=== PATIENT | male | born 1940 | race Caucasian/White ===

== ENCOUNTER 2019-12-01 09:49 | Outpatient (CLI) | payer MEDICARE, OTHER, SELFPAY ==
--- NOTE | 2019-12-01 09:59 | XR_ITS ---
WS: [id number] KNEE LEFT TECHNIQUE: 3 views of the left knee CLINICAL INFORMATION: LEFT KNEE PAIN COMPARISON: None. FINDINGS: Moderate degenerative arthritis left knee with medial compartment narrowing. Marginal sclerosis media l joint compartment. Hypertrophic patella. Narrowing of the patellofemoral articulation. Soft tissue edema. IMPRESSION: Moderate degenerative arthritis medial joint compartment and patellofemoral articulation
== END 2019-12-01 09:50 | disposition home or self-care (01) ==
PROVIDERS: Family Provider Family Medicine; PCP Family Medicine; Visit Provider Family Medicine
DX: M17.12 Unilateral primary osteoarthritis, left knee (principal); M25.562 Pain in left knee
CPT/HCPCS: 73562

== ENCOUNTER 2019-12-06 08:26 | Outpatient (CLI) | payer MEDICARE, OTHER, SELFPAY ==
--- NOTE | 2019-12-06 08:45 | USCV_ITS ---
Dann Peng Age: 79 Gender: M : 1940 Exam Date: 12/06/2019 09:16 Ordering Phys: Riya Perez MD Technologist: Opal King Exam Location[place] [facility] [place] Indication: dyspnea, abnormal weight loss, weakness BP: 135 / 72 HR: 73 Rhythm: Sinus Technical Quality: Excellent MEASUREMENTS (Male / Female) Normal Values 2D ECHO LV Diastolic Diameter PLAX 3.8 cm 4.2 - 5.9 / 3.9 - 5.3 cm LV Systolic Diameter PLAX 2.4 cm IVS Diastolic Thickness 1.0 cm 0.6 - 1.0 / 0.6 - 0.9 cm IVS Systolic Thickness 1.5 cm LVPW Diastolic Thickness 1.1 cm 0.6 - 1.0 / 0.6 - 0.9 cm LVPW Systolic Thickness 1.4 cm LVOT Diameter 2.0 cm LV Ejection Fraction 2D Teich 67.2 % LV Ejection Fraction MOD 2C 70.3 % LV Ejection Fraction 2C AL 71.2 % LA Diameter 4.3 cm LA Width 2.6 cm LA Height 3.8 cm RA Width 3.2 cm RA Height 4.0 cm Aorta at Sinotubular Diameter 2.5 cm M-MODE LV Diastolic Diameter MM 3.8 cm 4.2 - 5.9 / 3.9 - 5.3 cm LV Systolic Diameter MM 2.5 cm LV Ejection Fraction MM Teich 63.9 % IVS Diastolic Thickness MM 1.4 cm 0.6 - 1.0 / 0.6 - 0.9 cm IVS Systolic Thickness MM 1.3 cm LVPW Diastolic Thickness MM 1.2 cm 0.6 - 1.0 / 0.6 - 0.9 cm LVPW Systolic Thickness MM 1.9 cm RV Diastolic Diameter MM 2.3 cm Aortic Annulus Diameter 3.1 cm LA Ao Ratio MM 1.4 MV E Point Septal Separation 0.7 cm DOPPLER AV Peak Velocity 95.0 cm/s LVOT Peak Velocity 98.0 cm/s AV Area Cont Eq vti 3.1 cm squared AV Area Cont Eq pk 3.2 cm squared MV Peak Velocity 100.0 cm/s MV Area PHT 3.0 cm squared Mitral E to A Ratio 0.9 MV E' Velocity 8.0 cm/s Mitral E to MV E' Ratio 10.7 Mitral E to LV E' Lateral Ratio 10.1 Mitral E to LV E' Septal Ratio 11.4 TR Peak Velocity 269.0 cm/s TR Peak Gradient 29.0 mmHg TV Peak E Velocity 98.0 cm/s Right Atrial Pressure 3.0 mmHg Pulmonary Artery Systolic Pressu 31.9 mmHg PV Peak Velocity 72.0 cm/s FINDINGS Left Ventricle Normal left ventricular size and systolic function, EF 65 %. No regional wall motion abnormalities. Grade I/IV diastolic dysfunction (abnormal relaxation filling pattern), normal to mildly elevated filling pressures. Right Ventricle Normal right ventricular size and systolic function. Right ventricular systolic pressure 31.9 mmHg. Right Atrium Mildly increased right atrial size. Left Atrium Normal left atrial size. Mitral Valve Mild to moderate mitral valve regurgitation. Aortic Valve Structurally normal aortic valve without significant sclerosis or stenosis. There is no aortic regurgitation. Tricuspid Valve Moderate tricuspid valve regurgitation. Pulmonic Valve Structurally normal pulmonic valve without significant stenosis. There is no pulmonic regurgitation. Pericardium Normal pericardium without effusion. Aorta Normal ascending aorta dimension. CONCLUSIONS Normal left ventricular size and systolic function, EF 65 %. No regional wall motion abnormalities. Grade I/IV diastolic dysfunction (abnormal relaxation filling pattern), normal to mildly elevated filling pressures. Moderate tricuspid valve regurgitation. Mild to moderate mitral valve regurgitation. Pulmonary artery peak systolic pressure of 32 mmHg There is no pericardial effusion. There are no intracardiac masses. Compared to the study from 12/26/2013, there may not be a significant change Dr Ana Agarwal MD [facility] (Electronically Signed) Final Date: 07 December 2019 09:03 S
--- NOTE | 2019-12-06 08:45 | CT_ITS ---
WS: [id number] CT CHEST TECHNIQUE: Contrast enhanced CT of the chest with coronal and sagittal reformatted images. CLINICAL INFORMATION: ABNORMAL WEIGHT LOSS/WEAKNESS/DYSPNEA COMPARISON: 6 18,015 DLP: 640.[address] scans at [facility] use at least one of these dose optimization techniques: automat ed exposure control; mA and/or kV adjustment per patient size (includes targeted exams where dose is matched to clinical indication); or iterative reconstruction. FINDINGS: Moderate chronic emphysematous changes. No acute pulmonary infiltrates. Slight subsegmental atelectas is in the lung bases. No suspicious pulmonary parenchymal opacities. Aortic calcification. Normal vasu iber thoracic aorta. Proximal main pulmonary arteries are normal. No mediastinal or hilar lymphadenop athy. Moderate degenerative changes thoracic spine. Adrenal glands are normal. Cholecystectomy clips. Splen ic granulomas. Nonobstructing parenchymal calculi partially visualized in the left greater than right kidneys the largest measuring 9 mm. Normal caliber upper abdominal aorta. Mild common bile duct dila tation likely physiologic postcholecystectomy. Normal GE junction. No axillary lymphadenopathy. CT/CT chest w con* [id number] IMPRESSION: 1. Moderate chronic emphysematous changes. No acute pulmonary infiltrates. 2. No suspicious pulmonary parenchymal opacities. 3. No mediastinal or hilar lymphadenopathy. 4. Prior cholecystectomy. 5. Nonobstructing renal parenchymal calculi partially visualized in the upper abdomen.
[2019-12-06 09:52] LABS: Blood Urea Nitrogen 28 mg/dL (8-23)
[2019-12-06] MEDS: iohexol 300 mg/mL 100 mL Btl IV (10:25)
== END 2019-12-06 08:27 | disposition home or self-care (01) ==
PROVIDERS: Family Provider Family Medicine; PCP Family Medicine; Visit Provider Family Medicine
DX: I07.1 Rheumatic tricuspid insufficiency (principal); R06.00 Dyspnea, unspecified; R63.4 Abnormal weight loss; R53.1 Weakness; J43.9 Emphysema, unspecified; N20.0 Calculus of kidney; Z90.49 Acquired absence of other specified parts of digestive tract
CPT/HCPCS: 36415; 71260; 82565; 84520; 93306

== ENCOUNTER 2019-12-22 06:03 | Day surgery (SDC) | payer MEDICARE, OTHER, SELFPAY ==
[2019-12-21 07:39] VITALS: BMI 20.9
[2019-12-22 06:27] VITALS: BP 152/93; PULSE 80; RESP 20; TEMP 36.6; O2SAT 99
[2019-12-22] MEDS: sodium chloride 0.9% 1,000 ML 30 ML (06:37)
--- NOTE | 2019-12-22 06:40 | P.HPUD_ITS ---
H&P update H&P Update: DATE OF SURGERY/PROCEDURE: 12/22/19 DATE H&P PERFORMED: PLANNED PROCEDURE: Operation Date: 12/22/19 07:00 Proposed Procedures p Colonoscopy(Not Applicable) - Teofilo Diaz MD
--- NOTE | 2019-12-22 06:40 | PM.HPUD ---
H&P update H&P Update: DATE OF SURGERY/PROCEDURE: 12/22/19 DATE H&P PERFORMED: 12/13/19 PLANNED PROCEDURE: Operation Date: 12/22/19 07:00 Proposed Procedures p Colonoscopy(Not Applicable) - Teofilo Diaz MD
--- NOTE | 2019-12-22 06:49 | ANES.PREANE2 ---
Pre-Anesthetic Assessment Pre-Anesthetic Assessment: Height/Weight: Height 1.83 m Weight 70.307 kg Temp Pulse Resp BP Pulse Ox 97.8 F 80 20 H 152/93 99 12/22/19 06:27 12/22/19 06:27 12/22/19 06:27 12/22/19 06:27 12/22/19 06:27 Preop Diagnosis: screening Proposed Procedure: Operation Date: 12/22/19 07:00 Proposed Procedures p Colonoscopy(Not Applicable) - Teofilo Diaz MD Was Beta Mando taken within 24 hours: Yes Last intake: Intake Last Liquid Date 12/21/19 Last Liquid Time 18:00 Last Solid Date 12/20/19 Last Solid Time 20:00 Last Intake: 23:00 Social: Social History: No alcohol and No tobacco Exam: Pre-Anes Outpt Exam: alert, oriented x 3, clear to auscultation bilaterally and regular rate & rhythm Airway: Submandibular: WNL Cervical ROM: WNL MP: 1 Pulmonary: Pulmonary: None reported CV/HEM: CV/HEM: HTN : : None reported Hepatic: Hepatic: None reported GI: GI: None reported Metabolic: Metabolic: None reported Musc/skel: Musc/skel: Lower Back Pain and OA/DJD Neuropsych: Neuropsych: None reported Anesthetic Plan: ASA status: 2 Anesthesia: Anesthesia Evaluation and MAC Risk of > 500 ml blood loss (7ml/kg in children): No Data Anesthesia Cardiac Studies: No Data to Display
[2019-12-22 07:24] VITALS: BP 77/50; PULSE 70; RESP 16; TEMP 36.5; O2SAT 100
[2019-12-22 07:34] VITALS: BP 107/70; PULSE 77; RESP 18; O2SAT 100
--- NOTE | 2019-12-22 07:43 | ANE.PACU2 ---
 Inpatient post-anesthesia follow up: Airway intact: Yes Vital signs: Temperature 97.7 F Pulse Rate 77 Respiratory Rate 18 Blood Pressure 107/70 Pulse Oximetry 100 Oxygen Delivery Me thod Room Air Oxygen Flow Rate 3 Fraction of Inspir ed Oxygen Hydration adequate: Yes Nausea and vomiting: No Pain level: 1 Mental status: Baseline
[2019-12-29 09:42] VITALS: BMI 20.9
== END 2019-12-22 07:43 | disposition home or self-care (01) ==
PROVIDERS: Family Provider Family Medicine; PCP Family Medicine; Visit Provider Surgery
PROC: 0DJD8ZZ Inspection of Lower Intestinal Tract, Via Natural or Artificial Opening Endoscopic (ICD-10-PCS; CPT 45378; principal; 2019-12-22 07:00)
DX: Z12.11 Encounter for screening for malignant neoplasm of colon (principal); K57.30 Diverticulosis of large intestine without perforation or abscess without bleeding; K64.8 Other hemorrhoids; I10 Essential (primary) hypertension; M19.90 Unspecified osteoarthritis, unspecified site; Z87.11 Personal history of peptic ulcer disease
CPT/HCPCS: 12345; G0121; J0171; J2704; J7030

== ENCOUNTER 2020-01-03 14:35 | Outpatient (CLI) | payer MEDICARE, OTHER, SELFPAY ==
[2020-01-03 15:45] LABS: Basophils # 0.1 10^3/uL (0.0-0.1); Basophils % 0.7 %; Eosinophils # 0.1 10^3/uL (0.0-0.8); Eosinophils % 1.5 %; Hematocrit 37.6 % (42.0-52.0); Hemoglobin 12.4 g/dL (11.7-16.6); Lymphocytes # 1.7 10^3/uL (0.8-4.8); Lymphocytes % 20.3 %; Mean Corpuscular Hemoglobin 33.6 pg (28.0-34.0); Mean Corpuscular Volume 101.9 fL (80-94); Mean Platelet Volume 10.6 fL (7.4-10.4); Monocytes # 0.8 10^3/uL (0.2-0.9); Monocytes % 9.7 %; Neutrophils # 5.5 10^3/uL (1.8-7.7); Neutrophils % 67.3 %; Nucleated Red Blood Cells % 0 %; Platelet Count 242 10^3/cmm (130-400); Red Blood Count 3.69 10^6/uL (4.1-5.3); Red Cell Distribution Width 11.5 % (12.1-15.1); White Blood Count 8.2 10^3/uL (4.0-10.0)
== END 2020-01-03 14:36 | disposition home or self-care (01) ==
LOC: LAB 14:35
PROVIDERS: Family Provider Family Medicine; PCP Family Medicine; Visit Provider Orthopaedic Surgery
DX: Z86.2 Personal history of diseases of the blood and blood-forming organs and certain disorders involving the immune mechanism (principal)
CPT/HCPCS: 85025; 86850; 86900

== ENCOUNTER 2020-01-09 12:23 | Observation (INO) | payer MEDICARE, OTHER, SELFPAY ==
--- NOTE | 2019-12-29 09:54 | ANES.PREANE2 ---
Pre-Anesthetic Assessment Pre-Anesthetic Assessment: Height/Weight: Height 1.83 m Preop Diagnosis: left knee end stage DJD Proposed Procedure: Operation Date: 01/09/20 09:00 Proposed Procedures p Total Knee Arthroplasty 47980 M17.0(Not Applicable) - Dc Sawant MD Exam: Pre-Anes Outpt Exam: alert, oriented x 3, clear to auscultation bilaterally and regular rate & rhythm Airway: Submandibular: WNL Cervical ROM: WNL MP: 1 Dentition: Caps Additional comments: left front CV/HEM: CV/HEM: HTN (rx x 20y) : Comments: BPH GI: GI: GERD Comments: well controlled Musc/skel: Musc/skel: OA/DJD Anesthetic Plan: ASA status: 3 Anesthesia: General and Regional (specify below) Data Anesthesia Cardiac Studies: No Data to Display
[2019-12-29 10:26] LABS: Anion Gap 14.7 (5-19); Blood Urea Nitrogen 18 mg/dL (8-23); Carbon Dioxide 29 mmol/L (22-29); Chloride 99 mmol/L (98-107); Glucose 127 mg/dL (65-115); Osmolality Calculated 286 mOsm/kg (285-295); Potassium 3.7 mmol/L (3.5-5.1); Sodium 139 mmol/L (136-145)
[2020-01-09] VITALS (31 sets, daily range): BP systolic 120–169; BP diastolic 72–108; PULSE 71–102; RESP 16–23; TEMP 36.2–37.1; O2SAT 95–100; BMI 24.4
--- NOTE | 2020-01-09 07:29 | P.ANESUD_ITS ---
Pre-Anesthetic Update Pre-Anesthetic Assessment: Date of Surgery/Procedure: 01/09/20 Preop Sherri gnosis: Osteoarthritis left knee Proposed Procedure: Operation Date: 01/09/20 09:00 Proposed Procedures p Total Knee Arthroplasty 03924 M17.0(Not Applicable) - Dc Sawant MD Last Intake: Intake Last Liquid Date 01/08/20 Last Solid Date 01/08/20 Vitals: Temperature 98.1 F 01/09/20 07:03 Temperature Source Temporal Artery S can 01/09/20 07:03 Pulse Rate 91 01/09/20 07:03 Pulse Rhythm 01/09/20 07:11 Pulse Strength 3+ Normal 01/09/20 07:11 Respiratory Rate 18 01/09/20 07:03 Blood Pressure 159/95 01/09/20 07:03 Blood Pressure Staci n 116 01/09/20 07:03 Pulse Oximetry 97 01/09/20 07:03 Oxygen Delivery Me thod 01/09/20 07:11 Cardiac Studies: No Data to Display
[2020-01-09] MEDS: fentaNYL 50 mcg/mL INJ 2mL 100 MCG IVP (07:59)
[2020-01-09] MEDS: sodium chloride 0.9% 1,000 ML 30 ML IV (08:00)
[2020-01-09] MEDS: midazolam 1 mg/mL INJ 5 ML 5 MG IVP (08:00)
--- NOTE | 2020-01-09 09:46 | W.PM.OPSUD ---
Surgery/Procedure H&P Update DATE OF PROCEDURE: January 09, 2020 DATE H&P PERFORMED: 01/03/20 H&P UPDATE INFORMATION: I have reviewed H&P completed within last 30 days PREOP DIAGNOSIS: Osteoarthritis left knee PRIMARY INDICATION FOR PROCEDURE: Left knee pain secondaruy to osteoarthritis. Failed conservative treatment. PLANNED PROCEDURE: Operation Date: 01/09/20 09:00 Proposed Procedures p Total Knee Arthroplasty 89734 M17.0(Not Applicable) - Dc Sawant MD
[2020-01-09] MEDS: tranexamic acid 1,000 mg/10mL SDV 1000 MG IRRIGATION (11:18)
[2020-01-09] MEDS: ketorolac 30 mg/mL INJ IM (11:24)
[2020-01-09] MEDS: EPINEPHrine 1 mg/mL INJ XX (11:24)
--- NOTE | 2020-01-09 12:00 | P.OP_ITS ---
Operative Report Date of procedure: January 09, 2020 Pre-op Diagnosis: Osteoarthritis left knee Post-op diagnosis: same Post-op Findings: Same Procedure Done: Left total knee arthroplasty Implants: Bianka total knee arthroplasty components were used includin) Size 5 triathalon cruciate retaining femoral component 2) Size 6 Tritanium tibial component 3) 35 mm /11 mm thickness Tritanium asymetric patella 4) Size 6/13 mm thickness CS tibial bearing insert Pathology: none sent Surgeon: Dc Sawant Anesthesia: General and Nerve Block (Adductor canal) Estimated blood loss (mL): 200 Tourniquet time (min): 61 Complications: None Findings: Patient had severe tricompartmental chondromalacia with significant medial eburnation over the medial femoral condyle and medial tibial plateau and varus alignment Condition: stable Disposition: PACU Procedure: The patient was taken to the operating room. Patient was given 1 g of tranexamic acid . The above anesthesia provided by the anesthesia service. A timeout was performed. The patient was prepped and draped in the usual fashion with the lower extremity exposed. A anterior incision was made, midline, from a point proximal to the patella to the distal tibial tubercle. Di ssection was accomplished through the subcutaneous fat to the extensor mechanism. The vastus medialis oblique is musculature was elevated with a retractor and a capsular incision made from the medial patella along the patellar tendon up into the superior capsule. The patella could be displaced laterally and the knee flexed. The patellar fat pad was resected to provide better visibility. Retractors were placed medially and laterally adjacent to the tibial plateau. The femoral canal was drilled in line with the longitudinal axis of the femur. Intramedullary femoral guide for used to make a distal femoral cut in 5 degrees of valgus, resecting 8 mm from the more prominent condyle. Next the extra medullary tibial guide was placed in alignment with the longitudinal axis of the tibia. The cutting guides were set to remove just over 9 mm from the high tibial plateau. The proximal tibia was then cut. The femoral measuring guide was then placed over the distal femur. Rotation was verified checking the relationship of the guide to the condyle and the trochlear groove. The femur was measured and cut for the desired femoral component. The desired tibial baseplate was then chosen. A trial reduction with the femur tibial baseplate and polyethylene was done, assuring that the knee was stable throughout full motion. Ligament balancing involved release of the deep medial collateral ligament and removal of medial osteophytes.The tibia was prepared for the tibial baseplate. Patellar thickness was then measured. The patella was cut removing articular cartilage and prepared for appropriate size patellar button. All surfaces were cleaned with pulsatile lavage. The femur tibia and patella were then press-fit into place. The posterior capsule and collateral ligaments were then injected with a solution of 100 mL of 0.2% ropivacaine, 1 mL of a 1:1000 epinephrine solution, and 30 mg of Toradol. Final polyethylene component was then snapped into place into the tibia. 2 grams of tranexamic acid were applied to the wound. The tourniquet was deflated. The tranxanemic acid was left contact with the knee for 5 minutes before the knee was irrigated with saline. The extensor retinaculum was closed with 1 Ethibond. The subcutaneous tissues were closed with 2-0 Vicryl and the skin was closed with skin myriam. A compressive dressing was applied. The patient was taken to recovery room in stable condition.
--- NOTE | 2020-01-09 12:08 | XRR_ITS ---
PROCEDURE INFORMATION: Exam: XR Left Knee Exam date and time: 01/09/2020 12:33 PM Age: 79 years old Clinical indication: Device placement; Joint replacement hardware; Prior surgery; Surgery date: Post-operative (0-2 days); Surgery type: Status post left total knee arthroplasty TECHNIQUE: Imaging protocol: XR Left knee. Views: 1 or 2 views. COMPARISON: CR XR knee LT 3V* [id number] 12/01/2019 10:07 AM FINDINGS: Bones/joints: The patient has had a total knee arthroplasty. No periprosthetic lucency. No fracture. No dislocation. Soft tissues: Postoperative soft tissue changes present. XR/XR knee LT 1-2V [id number] IMPRESSION: Postoperative changes.
[2020-01-09] MEDS: fentaNYL 50 mcg/mL INJ 2mL IVP ×2 (12:11→12:16)
--- NOTE | 2020-01-09 12:12 | ANES.PROC ---
Anesthesia Procedures Procedure/Date: 01/09/20 Left adductor canal block Procedure Narrative: R&B's of left adductor canal block for postop pain relief following left TKA. Verbal and written consent obtained. Versed 2+1+1+1mg, Fentanyl 50ug. US utilized to identify left adductor canal space, CALEB. 40cc Ropvicaine 0.5 + Lido 2% with epi in 3:1 ratio in 5cc increments.
[2020-01-09] MEDS: midazolam 1 mg/mL INJ 2 mL IVP ×4 (12:14→13:04)
[2020-01-09] MEDS: morphine 4 mg/mL SDV 1 mL 2 MG IVP ×5 (12:18→15:01)
[2020-01-09] MEDS: sodium chloride 0.9% 1,000 ML 100 ML IV ×2 (12:30→14:04)
--- NOTE | 2020-01-09 13:50 | SUR.PHASEI ---
1205 PT TO PACU RESTLESS, CONFUSED ORIENTED TO NAME ONLY TRYING TO GET UP WARNER TO DD YELLOW URINE NOTED TO TUBING, STAT LOCK TO RT THIGH, LT KNEE DRESSING D/I FIRST ICE TO SITE DISTAL PULSE DOPPLED STRONG AND REGULAR, BILAT FOOT PUMPS ON SEE PAIN MEDS GIVEN PT C/O OF PAIN MOANING UNABLE TO USE SCALE FACE SCALE USED 1240 PT STILL CRYING ANXIOUS RESTLESS AFTER VERSED AND PAIN MEDS TO BEDSIDE 1323 PT AWAKES EASILY AT BEDSIDE PT GETS ANXOUS AND TEARFUL BUT CALMS TO TALKING TO HIM , STATES HE HAS PTSD AND AWAKES LIKE THIS TO ANESTHESIA, REPORT CALLED TO FLOOR PT TO FLOOR PER BED TALKATIVE WITH STAFF SOFIE RN AND BP 138/82, HR, RESP 20/ SATS ON 2LNC 100%
[2020-01-09] MEDS: chlorhexidine gluconate 0.12% Btl 473 mL 30 ML MUCOUS MEM ×3 (14:03→23:12)
[2020-01-09] MEDS: CELEcoxib 200 mg Capsule PO (14:03)
[2020-01-09] MEDS: oxyCODONE 5 mg IR Tab/Cap PO (15:02)
[2020-01-09] MEDS: ferrous sulfate EC 325 mg Tablet PO (15:17)
--- NOTE | 2020-01-09 15:38 | PC.NURSE ---
Prn bleeding note Patient noted to have a moderate amount of blood to dressing, saturating through the dressing, sheets and blankets. B/p 132/82, noted to have bright red bleeding with clots noted to dressing. Dr. Sawant informed with orders received to reinforce dressing and monitor bleeding. Patient has good pedal pulses, dressing reinforced. Will continue to monitor.
--- NOTE | 2020-01-09 16:48 | PC.NURSE ---
Physician Notification notified provider of surgical sight bleeding. orders to elevate patients leg and to ice. Vitals within normal limits and patient alert and oriented.
[2020-01-09] MEDS: mupirocin oint 22 gm 1 APPLIC NASAL (17:14)
[2020-01-09] MEDS: sennosides-docusate Tablet 2 TAB PO (17:15)
[2020-01-09] MEDS: citalopram 20 mg Tablet PO (17:15)
[2020-01-09] MEDS: metoprolol tartrate 25 mg Tablet PO (17:15)
--- NOTE | 2020-01-09 19:04 | PC.NURSE ---
noted patient has minimal bleeding from surgical sight.
[2020-01-10] VITALS (10 sets, daily range): BP systolic 138–146; BP diastolic 70–76; PULSE 77–98; RESP 16–22; TEMP 37.1–37.2; O2SAT 94–99; BMI 24.5
[2020-01-10] MEDS: oxyCODONE 5 mg IR Tab/Cap PO ×3 (00:27→13:51)
[2020-01-10] MEDS: CELEcoxib 200 mg Capsule PO ×2 (02:44→12:06)
[2020-01-10] MEDS: sodium chloride 0.9% 1,000 ML 100 ML IV ×2 (02:49→09:36)
[2020-01-10 05:15] LABS: Hemoglobin 9.4 g/dL (11.7-16.6)
[2020-01-10] MEDS: morphine 4 mg/mL SDV 1 mL 2 MG IVP (09:10)
[2020-01-10] MEDS: aspirin 325 mg EC Tablet PO (09:22)
[2020-01-10] MEDS: sennosides-docusate Tablet 2 TAB PO (09:22)
[2020-01-10] MEDS: citalopram 20 mg Tablet PO (09:23)
[2020-01-10] MEDS: tamsulosin 0.4 mg Capsule PO (09:23)
[2020-01-10] MEDS: mupirocin oint 22 gm 1 APPLIC NASAL (09:24)
[2020-01-10] MEDS: hydroCHLOROthiazide 25 mg Tablet PO (09:24)
[2020-01-10] MEDS: ferrous sulfate EC 325 mg Tablet PO (09:24)
[2020-01-10] MEDS: pantoprazole DR 40 mg Tablet PO (09:24)
[2020-01-10] MEDS: chlorhexidine gluconate 0.12% Btl 473 mL 30 ML MUCOUS MEM ×2 (09:25→12:07)
--- NOTE | 2020-01-10 09:30 | PC.CHAP ---
Pastoral Care Encounter/Spiritual Assessment Type of Contact [] Declined recreational director visit [] Patient/Family/Request visit [] Outpatient visit [] Follow-up visit [] Physician referral [] Code/Alert [x] Routine visit [] Staff referral [] Actively dying [] Patient sleeping [] Family support [] [] Out of room [] Palliative care [] [] Receiving care in room [] Pre-surgical visit [] Trauma [] Long length of stay [] ICU visit [] Other: Relational/Emotional Strength [x] Patient feels connected with others/family/visitors/staff [] Distress [] Loneliness/isolation [] Abandonment Spirituality of Patient [x] Person of Maame [x] Attends Baptism of their Maame [] Believes in Prayer [] Reads Bible or Cheondoism materials [] There are Spiritual issues to be addressed Spout Liner Interventions [x] Prayer [x] Active listening [x] Non-anxious presence [] Spiritual/emotional support [] Crisis/trauma care [] Spiritual counseling [] Bereavement support [] Provided bereavement packet [] Provided Bible/devotional materials [] Provided toy/stuffed animal, coloring book to patient or family member [] Provided Communion [] Anointing/[place] [] Salvation [x] Completed spiritual assessment [] Other: Impact on Illness or Injury [] Angry [] Fearful [] Anxious [] Often cries [] Exhaustion [] Unable to work [] Unable to attend yazdanism [] Unable to walk/stand [] Unable to read [] Unable to drive [] Unable to eat/drink [] Unable to sleep [] Unable to be with family [] Patient intubated [] Other: Summary patient doing well Time spent with patient 10 min
[2020-01-10] MEDS: metoprolol tartrate 25 mg Tablet PO (09:32)
--- NOTE | 2020-01-10 11:48 | ANE.PACU2 ---
 Inpatient post-anesthesia follow up: Airway intact: Yes Vital signs: Temperature 98.9 F Pulse Rate 85 Respiratory Rate 16 Blood Pressure 144/70 Pulse Oximetry 94 Oxygen Delivery Me thod [ Room Air Current Rate & Del karie] Oxygen Delivery Me thod Room Air Oxygen Flow Rate 2 Fraction of Inspir ed Oxygen Hydration adequate: Yes Nausea and vomiting: No Mental status: Baseline
--- NOTE | 2020-01-10 13:12 | PM.DCS ---
Discharge Providers Date of Admission: 01/09/20 12:23 Date of Discharge: January 10, 2020 Attending Provider at Admission: Dc Sawant MD Attending Provider at Discharge: Dc Sawant MD Primary Care Provider: Riya Perez MD Diagnoses at Discharge Discharge Diagnosis (1) Osteoarthritis of left knee: Status: Acute (2) Status post left knee replacement: Status: Acute Reason for Visit Reason for Visit: Reason For Visit: Primary osteoarthritis of bilateral knee Hospital Course Hospital Course: The patient underwent elective left total knee arthroplasty on 01/09/2020 and tolerated the procedure well. He was a bit more combative than typical in recovery room and had some initial bleeding from his knee. His drainage ceased with a reapplied dressing that evening. He had very little pain. He made excellent progress with physical therapy. By the first postoperative day he was independent with his walker and stable for discharge. He was managed with aspirin and mechanical compression for DVT prophylaxis. he remained hemodynamically stable throughout his hospitalization Physical Exam Narrative: EXAM NARRATIVE: On the day of discharge the patient's left knee dressing was clean and dry. He had minimal swelling in his calf. He had no left distal neurovascular deficits. Urinary Catheter Management^: [place]: Cath Placed During This Visit: yes Urethral Indwelling: No Reason for Continuing Indwelling Catheter: Perioperative Use in Selected Surgeries Urinary Catheter Date of Insertion: 01/09/20 Urinary Catheter Time of Insertion: 10:18 Discharge Data Data Completed and Pending: Completed Studies During Hospitalization Category Date Time Status XR knee LT 1-2V 7 3560 Routine Exams 01/09/20 12:08 Completed Pending at discharge Category Date Time Status Hemoglobin AM LAB S Lab 01/11/20 04:00 Ordered Labs from last 24 hours 01/10/20 04:25 Hgb 9.4 L Vitals: Last Vital Signs Temp 98.9 F 01/10/20 11:35 Pulse 85 01/10/20 11:35 Resp 16 01/10/20 11:35 BP 144/70 01/10/20 11:35 Pulse Ox 94 01/10/20 11:35 Discharge Plan Discharge Patient Disposition: Home, Self-Care Condition: Stable Prescriptions: New Percocet 5-325 mg tablet 1 tab PO Q4H Qty: 30 RF: 0 aspirin 325 mg Tablet,Delayed Release (Dr/Ec) 325 mg PO DAILY Qty: 30 RF: 0 celecoxib 200 mg Capsule 200 mg PO Q12H Qty: 30 RF: 0 Continued mupirocin 2 % ointment 1 applic TOPICAL BID Qty: 30 RF: 0 citalopram 20 mg tablet 20 mg PO BID RF: 0 metoprolol tartrate 25 mg tablet 25 mg PO BID RF: 0 cyclobenzaprine 10 mg tablet 10 mg PO TID PRN (Reason: Muscle Spasm) RF: 0 ferrous sulfate 325 mg (65 mg iron) tablet 325 mg PO DAILY RF: 0 esomeprazole magnesium [Nexium] 20 mg capsule,delayed release(DR/EC) 20 mg PO DAILY RF: 0 hydrochlorothiazide 25 mg tablet 25 mg PO DAILY RF: 0 tamsulosin 0.4 mg capsule 0.4 mg PO DAILY RF: 0 Discharge Orders: Discharge Order (Routine); Ordered 01/10/20 Ordered By: Dc Sawant Other Ambulatory Orders: DME: Kal (Order) Location: None Selected Ordered By: Dc Sawant Referrals: Dc Sawant MD [Physician] - 01/24/20 10:45 am Discharge Diet: Regular Discharge Activity: As per PT/OT instructions Activity Restrictions/Additional Instructions: Remove compressive dressing in 48 hours and replace with hospital supplied island dressing May shower once incisions completely free of drainage. Replaced dressings as needed for drainage.. Take Celebrex twice a day for the next 15 days, discontinue other anti-inflammatories Take oxycodone for breakthrough pain. Exercises per physical therapy. Ice and elevate knees as needed for pain and swelling.. Discharge Attestations Time Spent in Discharge Care*: other Quality Metrics Clinical Quality Measures During this hospital stay, did patient experience: None Coding Level of Care Code Acute Member [employer] for [facility] Fwd Diagnoses Osteoarthritis of left knee M17.12 Status post left knee replacement Z96.652
--- NOTE | 2020-01-10 14:38 | PC.NURSE ---
Discharge summary Patient was given discharge instructions. patients was at bedside as well. patients iv was discontinued. vitals within normal limits. patient alert and oriented. prescriptions were sent to patients preferred pharmacy.
== END 2020-01-10 14:40 | disposition home or self-care (01) ==
LOC: MEDSURG 14:59
PROVIDERS: Anesthesiology; Admitting Provider Orthopaedic Surgery; Family Provider Family Medicine; PCP Family Medicine; Visit Provider Orthopaedic Surgery
PROC: (CPT 27447; principal; 2020-01-09 09:00)
DX: M17.12 Unilateral primary osteoarthritis, left knee (principal); D64.9 Anemia, unspecified; D18.00 Hemangioma unspecified site; I10 Essential (primary) hypertension; N40.0 Benign prostatic hyperplasia without lower urinary tract symptoms; K21.9 Gastro-esophageal reflux disease without esophagitis
CPT/HCPCS: 27447; 12345; 36415; 73560; 80048; 85018; 96361; 96365; 96374; 96375; 97110; 97116; 97161; 97166; 97530; C1776; G0378; J0131; J0171; J0690; J1100; J1580; J1885; J2001; J2250; J2270; J2370; J2405; J2704; J2710; J2795; J3010; J3490; J7030

== ENCOUNTER → 2020-02-27 14:44 | Outpatient (BNVA) | payer MEDICARE, OTHER, SELFPAY | PROVIDERS: Family Provider Family Medicine; PCP Family Medicine; Visit Provider Orthopaedic Surgery | DX: Z48.89 Encounter for other specified surgical aftercare (principal); Z96.652 Presence of left artificial knee joint | CPT/HCPCS: 73560; 73565 ==

== ENCOUNTER → 2020-03-27 08:45 | Outpatient (BNVA) | payer MEDICARE, OTHER, SELFPAY | PROVIDERS: Family Provider Family Medicine; PCP Family Medicine; Visit Provider Orthopaedic Surgery | DX: S49.91XA Unspecified injury of right shoulder and upper arm, initial encounter (principal); X58.XXXA Exposure to other specified factors, initial encounter | CPT/HCPCS: 73030; 84450; 87070; 87075; 89051 ==

== ENCOUNTER → 2020-03-28 14:05 | Outpatient (BNVA) | payer MEDICARE, OTHER, SELFPAY | PROVIDERS: Family Provider Family Medicine; PCP Family Medicine; Visit Provider Orthopaedic Surgery | DX: S49.90XA Unspecified injury of shoulder and upper arm, unspecified arm, initial encounter (principal); M87.811 Other osteonecrosis, right shoulder | CPT/HCPCS: 80500 ==

== ENCOUNTER 2020-04-10 10:37 | Outpatient (CLI) | payer MEDICARE, OTHER, SELFPAY ==
--- NOTE | 2020-04-10 11:45 | MR_ITS ---
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 Severe degenerative changes at the AC joint. There is edema within the distal clavicle with increased T2 signal and thinning of the acromion. Remodeling of the acromion from the high riding humeral head . There is a large amount of inflammatory soft tissue at the AC joint with subacromial and subdeltoid fluid distending the bursa. Micrometallic artifacts surrounding the humeral head from prior surgery. Markedly high riding humeral head abuts the undersurface of the acromion. Loss of cartilage with subc hondral cystic changes at the humeral head with remodeling and deformity. There is an abnormal appear ance of the medial humeral head which may be due to surgical resection or osteonecrosis. There is a l arge amount of fluid surrounding the abnormal humeral head. There are anchors placed in the femoral h ead which are new since the prior study. Severe degenerative changes at the glenohumeral joint with l oss of cartilage and subchondral cystic changes. No labral is identified. Full-thickness tear of the supraspinatus tendon and muscle with retraction to at least the glenoid. T here is a edema and fatty replacement of the supraspinatus muscle involving greater than 50%. Distal subscapularis tendon is torn and retracted. Tendon is not identified distally. There is marked thicke venkat of the distal infraspinatus tendon without full-thickness tear. Mild muscle loss and atrophy of the infraspinatus and subscapularis. Biceps tendon is not present at the bicipital groove and is prob ably partially subluxed and dislocated along with the subscapularis tendon. Large amount of marrow edema in the humeral head and proximal humerus. MR/MR shoulder RT wo con* [id number] IMPRESSION: 1. Markedly abnormal appearance of the shoulder and glenohumeral joint and AC joint. 2. Defect involving the medial humeral head may be an area of osteonecrosis or secondary to prior infection or surgical resection. New since the prior should er MRI of 05/09/2019. 3. Large joint effusion. 4. Full-thickness tear with retraction to the glenoid of the supraspinatus ten don. Greater than 50% atrophy and fatty replacement of the supraspinatus muscle . 5. Full-thickness tear with retraction of the subscapularis tendon. 6. Dislocated biceps tendon. 7. Severe degenerative changes at the glenohumeral joint with osteophytes, los s of cartilage and subchondral cystic disease and high riding humeral head.
== END 2020-04-10 10:38 | disposition home or self-care (01) ==
LOC: RADSHAW 10:43
PROVIDERS: PCP Family Medicine; Visit Provider Orthopaedic Surgery
DX: M87.811 Other osteonecrosis, right shoulder (principal); M25.411 Effusion, right shoulder; M75.101 Unspecified rotator cuff tear or rupture of right shoulder, not specified as traumatic
CPT/HCPCS: 73221

== ENCOUNTER 2020-05-31 10:46 | Outpatient (CLI) | payer MEDICARE, OTHER, SELFPAY ==
--- NOTE | 2020-05-31 10:53 | XR_ITS ---
WS: [id number] Right knee, 3 views, 05/31/2020 Clinical Data: PAIN IN RIGHT KNEE Comparison: AP right knee, 02/27/2020. Findings: Both the medial and lateral joint compartments are narrow. There is an osteophyte of the medial femor al condyle and the medial tibial plateau. There is a posterior superior patellar spur. There are faint calcifications within the lateral menisc us. No fractures or dislocations are seen. There are small vascular calcifications present. XR/XR knee RT 3V* [id number] Impression: Osteoarthritis of all 3 compartments of the right knee.
== END 2020-05-31 10:47 | disposition home or self-care (01) ==
LOC: RADWPI 10:51
PROVIDERS: Family Provider Family Medicine; PCP Family Medicine; Visit Provider Family Medicine
DX: M25.561 Pain in right knee (principal); M17.11 Unilateral primary osteoarthritis, right knee
CPT/HCPCS: 73562

== ENCOUNTER → 2020-07-13 08:41 | Outpatient (BNVA) | payer MEDICARE, OTHER, SELFPAY | PROVIDERS: PCP Family Medicine; Visit Provider Internal Medicine | DX: Z11.59 Encounter for screening for other viral diseases (principal) | CPT/HCPCS: 87635 ==

== ENCOUNTER 2020-07-16 12:26 | Observation (INO) | payer MEDICARE, OTHER, SELFPAY ==
--- NOTE | 2020-07-09 10:54 | ECG_ITS ---
[facility] Test Date: 2020-07-09 Pat Name: aDnn Peng Department: Room: Gender: Male Family Preservation Worker: : 1940 Requested By: Roberto Aden Order Number: [id number] Francisco MD: Elian Zavala M.D. Measurements Intervals [place] Rate: 68 P: 81 SD: 184 QRS: 86 QRSD: 88 T: 76 QT: 364 QTc: 390 Interpretive Statements SINUS RHYTHM Compared to ECG 05/17/2019 10:03:50 No significant changes Electronically Signed On 07-09-2020 12:01:55 CDT by Elian Zavala M.D. [id number]
[2020-07-09 11:39] LABS: Basophils % 0.4 %; Eosinophils # 0.1 10^3/uL (0.0-0.8); Eosinophils % 1.6 %; Hematocrit 42.6 % (42.0-52.0); Lymphocytes # 1.5 10^3/uL (0.8-4.8); Lymphocytes % 18.5 %; Mean Corpuscular HGB Conc 32.9 g/dL (30.0-36.0); Mean Corpuscular Hemoglobin 33.8 pg (28.0-34.0); Mean Corpuscular Volume 102.9 fL (80-94); Mean Platelet Volume 10.7 fL (7.4-10.4); Monocytes # 0.6 10^3/uL (0.2-0.9); Monocytes % 7.9 %; Neutrophils # 5.71 10^3/uL (1.8-7.7); Neutrophils % 71.3 %; Nucleated Red Blood Cells % 0 %; Platelet Count 216 10^3/cmm (130-400); Red Blood Count 4.14 10^6/uL (4.1-5.3); Red Cell Distribution Width 11.8 % (12.1-15.1)
[2020-07-09 11:59] LABS: Add Urine Microscopic? NO
[2020-07-09 12:03] LABS: Anion Gap 10.7 (5-19); Blood Urea Nitrogen 29 mg/dL (8-23); Carbon Dioxide 29 mmol/L (22-29); Chloride 104 mmol/L (98-107); Glucose 114 mg/dL (65-115); Osmolality Calculated 286 mOsm/kg (285-295); Potassium 4.7 mmol/L (3.5-5.1); Sodium 139 mmol/L (136-145)
[2020-07-09 12:05] LABS: Bilirubin Urine Neg (NEGATIVE); Blood Urine Neg (Negative); Glucose Urine UA Norm (Normal); Ketones Urine Negative (Negative); Leukocyte Esterase Urine Negative (Negative); Nitrate Urine Negative (Negative); Protein Urine Neg (Negative); Specific Gravity, Urine 1.015 (1.005-1.030); Urine Appearance Clear (CLEAR); Urine Color Yellow (Yellow); Urobilinogen Urine Norm (Negative); pH Urine 5 (5-7)
[2020-07-10 10:33] LABS: Coronavirus Lab Test PTC Negative
[2020-07-16] VITALS (20 sets, daily range): BP systolic 136–161; BP diastolic 73–98; PULSE 63–88; RESP 10–18; TEMP 36.1–37.2; O2SAT 99–100
[2020-07-16] MEDS: sodium chloride 0.9% 1,000 ML 30 ML IV (07:54)
--- NOTE | 2020-07-16 08:34 | P.ANESASSM_ITS ---
Pre-Anesthetic Assessment Pre-Anesthetic Assessment: Height/Weight: Height 1.83 m Weight 74.843 kg Temp Pulse Resp BP Pulse Ox 98.5 F 63 16 136/86 99 07/16/20 07:45 07/16/20 07:45 07/16/20 07:45 07/16/20 07:45 07/16/20 07:45 Preop Diagnosis: Osteoarthritis right knee Proposed Procedure: Operation Date: 07/16/20 09:30 Proposed Procedures p Total Knee Arthroplasty 79310 M17.11(Right) - Dc Sawant MD Familial anesthetic complications: None Was Beta Mando taken within 24 hour s: Yes Last intake: Intake Last Liquid Date 07/16/20 Last Liquid Time 06:30 Last Solid Date 07/15/20 Last Solid Time 22:00 Social: Social History: No alcohol and No tobacco Exam: Pre-Anes Outpt Exam: alert, oriented x 3, clear to auscultation bilaterally and regular rate & rhythm Airway: Cervical ROM: WNL MP: 3 CV/HEM: CV/HEM: HTN Anesthetic Plan: ASA status: 2 Anesthesia: Regional (specify below) Other: spinal, adductor block Risk of > 500 ml blood loss (7ml/kg in children): No Meds/Allergies Current Medications: Current Medications Generic Name Dose Route Start Last Admin Trade Name Freq PRN Reason Stop Dose Admin Sodium Chloride 1,000 mls @ 30 ml s/hr 07/16/20 07:30 07/16/20 07:54 Sodium Chloride 0.9% IV 07/17/20 07:29 30 mls/hr .Q24H BARBER Administration PFSH Anesthesia PFSH: Medical History (Updated 06/07/20 @ 15:56 by Dc Sawant MD) Gastric erosions Data Anesthesia CBC & Chem 7: 07/09/20 11:20 07/09/20 11:20 Cardiac Studies: No Data to Display
[2020-07-16] MEDS: midazolam 1 mg/mL INJ 2 mL 2 MG IVP (08:48)
--- NOTE | 2020-07-16 08:48 | ANES.PROC ---
Anesthesia Procedures Procedure/Date: 07/16/20 Nerve Block ^: Nerve Block 1: Main Anesthesia: spinal anesthesia block Time Out Performed: Yes Consent: requested by attending/covering physician, from patient, risks and benefits reviewed and patient agrees to proceed Nerve block location: adductor canal (R) Anesthesia monitors applied: pulse oximetry and oxygen Nerve block position: supine Anesthetic Used: ropivicaine 0.5% and with decadron (4 mg) Amount of anesthesia used (mL): 30 Ultrasound used to: recognize landmarks and visualize and ID femerol nerve Interscalene/Femoral BLK: 4 stimuplex 21 g needle used for position and inplane approach, visualize local anesthetic spread and no vascular puncture identified Injection: neg aspiration of heme Patient Tolerated Procedure: well and no complications Complications: none and bleeding
--- NOTE | 2020-07-16 09:06 | W.PM.OPSFHP ---
Same Day Surgery H&P Indication for Procedure/HPI DATE OF PROCEDURE: July 16, 2020 CHIEF COMPLAINT/INDICATIONFOR SURGICAL PROCEDURE: Osteoarthritis right knee. Continued pain and failure to respond to conservative measures PREOP DIAGNOSIS: Osteoarthritis right knee PLANNED PROCEDRUE: Operation Date: 07/16/20 09:30 Proposed Procedures p Total Knee Arthroplasty 84947 M17.11(Right) - Dc Sawant MD Medications/Allergies* Home Medications Medication Instructions Recorded Confirmed Type citalopram 20 mg tablet 20 mg PO BID 12/06/19 07/16/20 History cyclobenzaprine 10 mg tablet 10 mg PO TID PRN 12/06/19 07/16/20 History esomeprazole magnesium 20 mg 20 mg PO DAILY 12/06/19 07/16/20 History capsule,delayed release ferrous sulfate 325 mg (65 mg 325 mg PO DAILY 12/06/19 07/16/20 History iron) tablet hydrochlorothiazide 25 mg tablet 25 mg PO DAILY 12/06/19 07/16/20 History metoprolol tartrate 25 mg tablet 25 mg PO BID 12/06/19 07/16/20 History Allergies/Adverse Reactions Allergy/AdvReac Type Severity Reaction Status Date / Time gabapentin Allergy Intermediate ADR-Confusi Verified 07/16/20 07:43 on amlodipine Allergy ADV-Weaknes Verified 07/16/20 07:43 s Current Medications: Generic Name Dose Route Start Last Admin Trade Name Freq PRN Reason Stop Dose Admin Sodium Chloride 1,000 mls @ 30 mls/hr 07/16/20 07:30 07/16/20 07:54 Sodium Chloride 0.9% IV 07/17/20 07:29 30 mls/hr .Q24H BARBER Administration Midazolam HCl 2 mg 07/16/20 07:17 07/16/20 08:48 Versed IVP 1 mg Q5M PRN Administration Preop Anxiety Pertinent History/Comorbid Conditions* Medical History (Updated 06/07/20 @ 15:56 by Dc Sawant MD) Gastric erosions Pertinent Exam Findings alert, oriented x 3, clear to auscultation bilaterally and regular rate & rhythm Recommendations Surgery/Procedure today Coding Level of Care Code Acute Correctional Supervisor Lieutenant for Gladys Hernandez
[2020-07-16] MEDS: EPINEPHrine 1 mg/mL INJ XX (10:24)
[2020-07-16] MEDS: ketorolac 30 mg/mL INJ IM (10:24)
[2020-07-16] MEDS: tranexamic acid 1,000 mg/10mL SDV 1000 MG IRRIGATION (10:25)
--- NOTE | 2020-07-16 11:31 | P.OP_ITS ---
Operative Report Date of procedure: July 16, 2020 Pre-op Diagnosis: Osteoarthritis right knee Post-op diagnosis: same Post-op Findings: Same Procedure Done: Right total knee arthroplasty Pathology: none sent Surgeon: Dc Sawant Anesthesia: General and Nerve Block (Adductor canal block) Estimated blood loss (mL): 200 Complications: None Findings: Patient had severe eburnation over his medial femoral condyle medial tibial plateau patella and trochlea Condition: stable Disposition: PACU Procedure: The patient was taken to the operating room. Patient was given 1 g of tranexamic acid . The above anesthesia provided by the anesthesia service. A timeout was performed. The patient was prepped and draped in the usual fashion with the lower extremity exposed. A anterior incision was made, midline, from a point proximal to the patella to the distal tibial tubercle. The knee was entered through a medial parapatellar approach. The patella could be displaced laterally and the knee flexed. The patellar fat pad was resected to provide better visibility. Retractors were placed medially and laterally adjacent to the tibial plateau. The femoral canal was drilled in line with the longitudinal axis of the femur. Intramedullary femoral guide for used to make a distal femoral cut in 5 degrees of valgus, resecting 8 mm from the more prominent condyle. Next the extra medullary tibial guide was placed in alignment with the longitudinal axis of the tibia. The cutting guides were set to remove just over 9 mm from the high tibial plateau. The proximal tibia was then cut. The femoral measuring guide was then placed over the distal femur. Rotation was verified checking the relationship of the guide to the condyle and the trochlear groove. The femur was measured and cut for the desired femoral component. The desired tibial baseplate was then chosen. A trial reduction with the femur tibial baseplate and polyethylene was done, assuring that the knee was stable throughout full motion. Ligament balancing involved to release the deep medial collateral ligament. The tibia was prepared for the tibial baseplate. Patellar thickness was then measured. The patella was cut removing articular cartilage and prepared for appropriate size patellar button. All surfaces were cleaned with pulsatile lavage. The femur tibia and patella were then press-fit into place. The posterior capsule and collateral ligaments were then injected with a solution of 100 mL of 0.2% ropivacaine, 1 mL of a 1:1000 epinephrine solution, and 30 mg of Toradol. Final polyethylene component was then snapped into place into the tibia. 2 grams of tranexamic acid were applied to the wound. The tourniquet was deflated. The tranxanemic acid was left contact with the knee for 5 minutes before the knee was irrigated with saline. The extensor retinaculum was closed with 1 Ethibond. The subcutaneous tissues were closed with 2-0 Vicryl and the skin was closed with skin myriam. A compressive dressing was applied. The patient was taken to recovery room in stable condition. [employer] total knee arthroplasty components were used includin) Size 5 triathalon cruciate retaining femoral component 2) Size 6 Tritanium tibial component 3) 35 mm /10 mm thickness Tritanium asymetric patella 4) Size 6/16 mm thickness CR tibial bearing insert
--- NOTE | 2020-07-16 11:42 | XRR_ITS ---
PROCEDURE INFORMATION: Exam: XR Right Knee Exam date and time: 07/16/2020 12:00 PM Age: 80 years old Clinical indication: Device placement; Joint replacement hardware; Prior surgery; Surgery date: Post-operative (0-2 days); Surgery type: Right knee replacement; Additional info: That is post right knee replacement TECHNIQUE: Imaging protocol: XR Right knee. Views: 3 views. COMPARISON: CR XR knee RT 3V* [id number] 05/31/2020 11:00 AM FINDINGS: Bones/joints: Right knee arthroplasty, without postoperative complication. Anatomic alignment. Soft tissues: Postoperative subcutaneous emphysema and skin myriam. XR/XR knee RT 3V* [id number] IMPRESSION: Right knee arthroplasty, without postoperative complication.
[2020-07-16] MEDS: sodium chloride 0.9% 1,000 ML 100 ML IV (12:00)
[2020-07-16] MEDS: fentaNYL 50 mcg/mL INJ 2mL IVP (12:07)
--- NOTE | 2020-07-16 12:07 | PM.PACU ---
PACU note Post-Anesthesia Exam: awake and vital signs stable Disposition: admitted
--- NOTE | 2020-07-16 12:12 | SUR.PHASEI ---
PT AWAKE ALERT CALLED AND UPDATED THAT HE IS AWAKE AND NOT CONFUSED, SHE HAD WORRIED THAT HE WOULD BE CONFUSED LIKE LAST TIME, RT KNEE DRESSING D/I FIRST ICE TO SITE. DISTAL PULSE FELT +1 DOPPLED AND MARKED, PT HAS WARNER CATHETER TO DD YELLOW URINE NOTED , NEW IV BAG UP PT NOT COMPLAINS OF PAIN OF 8 TO KNEE SEE GROSS MED GIVEN
[2020-07-16] MEDS: morphine 4 mg/mL SDV 1 mL 2 MG IVP ×2 (12:45→20:31)
[2020-07-16] MEDS: CELEcoxib 200 mg Capsule PO (13:21)
[2020-07-16] MEDS: chlorhexidine gluconate 0.12% Btl 473 mL 30 ML MUCOUS MEM ×3 (13:21→20:47)
[2020-07-16] MEDS: sodium chloride 0.9% 1,000 ML 75 ML IV (13:21)
[2020-07-16] MEDS: cyclobenzaprine 10 mg Tablet PO (13:22)
--- NOTE | 2020-07-16 13:40 | SUR.PHASEI ---
1235 PT TO FLOOR , PT AWAKE ALERT NOW COMPLAINS OF PAIN TO KNEE AREA, DRESSING D/I FIRST ICE TO KNEE, BILAT FOOT PUMPS ON. PT TALKATIVE WITH NURSING STAFF BUT IS [place]. NURSE TO GET PAIN MEDS
--- NOTE | 2020-07-16 13:43 | SUR.PHASEI ---
1245 PT ALERT HAVING PAIN MORPHINE 2MG IVP GIVEN TO PT PT NURSE IS AN CPS TEAM LEAD. 2MG MORPHINE WASTED IN PYXIS WITH ALEX CIDN AND TYREL RN. PT TOLERATED WELL, IV AT MOD RATE. VSS BP 159/77, HR 67, RESP 18, SATS 100% ON RA
[2020-07-16] MEDS: oxyCODONE 5 mg IR Tab/Cap PO ×2 (14:17→20:30)
[2020-07-16] MEDS: sennosides-docusate Tablet 2 TAB PO (17:47)
[2020-07-16] MEDS: mupirocin oint 22 gm 1 APPLIC NASAL (17:47)
[2020-07-16] MEDS: citalopram 20 mg Tablet PO (17:47)
[2020-07-17] VITALS (11 sets, daily range): BP systolic 126–167; BP diastolic 68–85; PULSE 85–96; RESP 14–18; TEMP 36.4–37.1; O2SAT 92–97
[2020-07-17] MEDS: sodium chloride 0.9% 1,000 ML 75 ML IV (01:56)
[2020-07-17] MEDS: CELEcoxib 200 mg Capsule PO ×2 (01:57→13:36)
[2020-07-17 04:57] LABS: Hemoglobin 10.9 g/dL (11.7-16.6)
[2020-07-17] MEDS: morphine 4 mg/mL SDV 1 mL 2 MG IVP ×2 (05:09→13:35)
--- NOTE | 2020-07-17 07:21 | ANE.PACU2 ---
Inpatient post-anesthesia follow up: Airway intact: Yes Vital signs: Temperature 98.7 F Pulse Rate 95 Respiratory Rate 18 Blood Pressure 135/74 Pulse Oximetry 96 Oxygen Delivery Me thod Room Air Oxygen Flow Rate Fraction of Inspir ed Oxygen Hydration adequate: Yes Nausea and vomiting: No Pain level: 5 Mental status: Baseline Additional Comments: Patient had pain associated with SCDs on his operative leg, which resolved with removal of SCD
[2020-07-17] MEDS: oxyCODONE 5 mg IR Tab/Cap PO ×3 (08:36→16:55)
[2020-07-17] MEDS: citalopram 20 mg Tablet PO (09:20)
[2020-07-17] MEDS: aspirin 325 mg EC Tablet PO (09:20)
[2020-07-17] MEDS: ferrous sulfate EC 325 mg Tablet PO (09:23)
[2020-07-17] MEDS: sennosides-docusate Tablet 2 TAB PO (09:23)
[2020-07-17] MEDS: hydroCHLOROthiazide 25 mg Tablet PO (09:23)
[2020-07-17] MEDS: metoprolol tartrate 25 mg Tablet PO (09:23)
[2020-07-17] MEDS: chlorhexidine gluconate 0.12% Btl 473 mL 30 ML MUCOUS MEM ×2 (09:24→12:56)
[2020-07-17] MEDS: mupirocin oint 22 gm 1 APPLIC NASAL (09:24)
[2020-07-17] MEDS: pantoprazole DR 40 mg Tablet PO (10:54)
--- NOTE | 2020-07-17 16:39 | P.DS_ITS ---
Discharge Providers Date of Admission: 07/16/20 12:26 Date of Discharge: July 17, 2020 Attending Provider at Admission: Dc Sawant MD Attending Provider at Discharge: Dc Sawant MD Primary Care Provider: Riya Perez MD Diagnoses at Discharge Discharge Diagnosis (1) Status post total right knee replacement: Status: Acute (2) Osteoarthritis of right knee: Status: Resolved Reason for Visit Reason for Visit: primary osteoarthrtsis of [facility] knee Hospital Course Hospital Course: The patient tolerated surgery well. They remained hemodynamically stable. They was begun on aspirin and foot pumps for DVT prophylaxis. The patient was mobilized with therapy beginning the day of surgery and by the first postoperative day independent with the walker. As the pain was adequately controlled and they were fully mobile they were discharged home. Physical Exam Narrative: EXAM NARRATIVE: On the day of discharge his knee incision was clean. They had no drainage. There is minimal swelling in the thigh and knee and the calf. No distal neurovascular deficits were noted Urinary Catheter Management^: F: Cath Placed During This Visit: yes Urinary Catheter Date of Insertion: 07/16/20 Urinary Catheter Time of Insertion: 10:00 Discharge Data Data Completed and Pending: Completed Studies During Hospitalization Category Date Time Status XR knee RT 3V* [id number] Routine Exams 07/16/20 11:42 Completed Labs from last 24 hours 07/17/20 04:38 Hgb 10.9 L Vitals: Last Vital Signs Temp 97.9 F 07/17/20 15:29 Pulse 87 07/17/20 15:29 Resp 16 07/17/20 15:29 BP 167/83 07/17/20 15:29 Pulse Ox 97 07/17/20 15:29 Discharge Plan Discharge Patient Disposition: Home Condition: Stable Prescriptions: New oxycodone 5 mg Tablet 5 mg PO Q4H PRN (Reason: Moderate Pain) Qty: 40 RF: 0 No Action citalopram 20 mg tablet 20 mg PO BID RF: 0 metoprolol tartrate 25 mg tablet 25 mg PO BID RF: 0 cyclobenzaprine 10 mg tablet 10 mg PO TID PRN (Reason: Muscle Spasm) RF: 0 ferrous sulfate 325 mg (65 mg iron) tablet 325 mg PO DAILY RF: 0 esomeprazole magnesium [Nexium] 20 mg capsule,delayed release(DR/EC) 20 mg PO DAILY RF: 0 hydrochlorothiazide 25 mg tablet 25 mg PO DAILY RF: 0 celecoxib 200 mg Capsule 200 mg PO Q12H Qty: 30 RF: 0 aspirin 325 mg Tablet,Delayed Release (Dr/Ec) 325 mg PO DAILY Qty: 30 RF: 0 tamsulosin [Flomax] 0.4 mg Capsule PO BEDTIME RF: 0 tamsulosin 0.4 mg capsule 0.4 mg PO DAILY RF: 0 Discharge Orders: Discharge Order (Routine); Ordered 07/17/20 Ordered By: Dc Sawant Other Ambulatory Orders: Physical Therapy Eval and Treat Outpatient (Order) Timeframe: 3 Days Facility: [facility] - Location: Physical Therapy Ordered By: Dc Sawant Referrals: PHYSICAL THERAPY SPECILIST SHARON [Occupational Therapist] - 07/18/20 10:15 am (You will be seeing the therapist Florentin Wesley for services. ) Dc Sawant MD [Physician] - Discharge Diet: Advance as tolerated Discharge Activity: Use walker/crutches as instructed Patient Instructions: Oxycodone/Acetaminophen (By mouth), Total Knee Replacement (DC) Activity Restrictions/Additional Instructions: May shower once incisions completely free of drainage. Discontinue knee dressing in 24-48 hours. Replaced dressings as needed. Take Celebrex twice a day for the next 15 days for pain , discontinue other anti-inflammatories take [] for breakthrough pain. Exercises per physical therapy. May weight-bear as tolerated on total knee arthroplasty Discharge Attestations Time Spent in Discharge Care*: other Quality Metrics Clinical Quality Measures During this hospital stay, did patient experience: None Coding Level of Care Code Acute Corporate Coordinator for Gladys Hernandez Diagnoses Status post total right knee replacement Z96.651 Osteoarthritis of right knee M17.11
--- NOTE | 2020-07-17 16:44 | PC.NURSE ---
I was alerted by Hussein Simms RN that patient's spouse was present in the patient's room and was upset regarding his care. I went into the patient's room and introduced myself to the patient and his spouse as the nurse boarding house manager and asked how I could help. The patient's spouse immediately became aggressive and said that her laid in the bed all night in severe pain and was crying and nobody did anything about it . I apologized for this and inquired further with the patient, who stated that he felt as though his maggie wrap to his right knee was too tight and that if it were loosened, it would feel better. He states that he asked a couple people about this and they were hesitant to remove the maggie wrap d/t Dr. Sawant wishing them to not be removed unless by him. He also states that when he was in pain earlier today, he requested more pain medications, but it took a while after he pushed the button . He received Oxycodone at 1258 and then received Morphine at 1328 for breakthrough pain. He states that he also requested his Flomax overnight and this morning d/t having chronic urinary retention and BPH. I verified his home medications and the Flomax had not been confirmed. This was reviewed and confirmed by Mikki Abreu RN, Charge Nurse, Clinical Letterpress Setter and we apologized for the inconvenience. The patient's spouse was not receptive during our conversation and would repeat that she has been a nurse for 50 years . I apologized and reiterated that our mission at [facility] is to provide exceptional care at all times to all patients, and we would appreciate the opportunity to make it right. Dr. Sawant came in during our conversation, undressed and assessed the incision to the right knee, applied a clean dressing, and spoke to the patient and his spouse about d/c. They were in agreement. After he left, I reiterated my apologies for the patient's care and offered a service recovery card, which the patient's spouse declined and requested to get him out of here as quickly as possible . Mikki Abreu RN and I assured them that we would expedite the d/c as soon as orders were placed by Dr. Sawant. I offered to assist with getting patient dressed and he and his spouse declined. I asked if there was anything further I could do for them, and they both declined at this time.
--- NOTE | 2020-07-17 17:02 | PC.NURSE ---
Patient and given discharge instructions. states appointment with physical therapy specialist rescheduled for 07/20/20. Questions answered. Denies needs at this time.
--- NOTE | 2020-07-17 17:03 | PC.NURSE ---
Pts very verbally aggressive when she arrived on floor. AGRICULTURE SCIENCE TEACHER came to med/sug stating that person who would not say who she was seeing stormed up stairs. When I went to my patients room she was in the room. I asked her if they had taken her temp and if she filled out coviid form. She said she wanted to talk with the sub plant manager. She was cussing when was taking to me. I informed Jessica about the hostility. When I went back in to take pain med and pts iv out. She said the acewrap should not have been on pt. I explained to her that the surgeon puts that on as a pressure drsg so as not to bleed out. She said that she was a nurse and that what i said was bull.perfecto I explained to her that I was the one that loosen the bottom of maggie wrap around his ankle to see if it would releave some of the swelling and pain.
== END 2020-07-17 17:10 | disposition home or self-care (01) ==
LOC: MEDSURG 12:26
PROVIDERS: Anesthesiology; Admitting Provider Orthopaedic Surgery; PCP Family Medicine; Visit Provider Orthopaedic Surgery
PROC: (CPT 27447; principal; 2020-07-16 09:30)
DX: M17.11 Unilateral primary osteoarthritis, right knee (principal); I10 Essential (primary) hypertension
CPT/HCPCS: 27447; 12345; 36415; 51702; 73562; 80048; 81003; 85018; 85025; 87635; 93005; 96361; 96365; 96374; 96375; 97110; 97116; 97161; 97165; 97530; C1776; G0378; J0171; J0690; J1580; J1885; J2250; J2270; J2274; J2370; J2405; J2704; J2710; J2795; J3010; J3490; J7030

== ENCOUNTER → 2020-08-21 08:37 | Outpatient (BNVA) | payer MEDICARE, OTHER, SELFPAY | PROVIDERS: PCP Family Medicine; Visit Provider Orthopaedic Surgery | DX: Z96.651 Presence of right artificial knee joint (principal); Z48.89 Encounter for other specified surgical aftercare | CPT/HCPCS: 73560; 73565 ==

== ENCOUNTER 2021-01-07 11:22 | Outpatient (CLI) | payer MEDICARE, OTHER, SELFPAY ==
--- NOTE | 2021-01-07 11:42 | XR_ITS ---
WS: [id number] LEFT SHOULDER: 3 VIEW(S) TECHNIQUE: Internal and external rotation with Y view. HISTORY: PAIN IN LEFT SHOULDER COMPARISON: None available. Severe degenerative changes at the glenohumeral joint. There is bone upon bone with sclerosis and sub chondral cystic changes. Hypertrophic bone formation is a elongating the glenoid and osteophytosis. T here is flattening and deformity of the humeral head with subchondral cystic changes and increasing b one formation. Mild AC joint narrowing. Humeral head is high riding. XR/XR shoulder LT min 2V* [id number] IMPRESSION: Severe degenerative changes at the glenohumeral joint. Significant loss of the joint space with deformity of the humeral head and glenoid.
== END 2021-01-07 11:23 | disposition home or self-care (01) ==
LOC: RADWPI 11:25
PROVIDERS: PCP Family Medicine; Visit Provider Family Medicine
DX: M25.512 Pain in left shoulder (principal)
CPT/HCPCS: 73030

== ENCOUNTER 2021-06-28 07:59 | Outpatient (CLI) | payer MEDICARE, OTHER, SELFPAY ==
--- NOTE | 2021-06-28 08:10 | XR_ITS ---
WS: [id number] Cervical spine, 5 views including obliques, 06/28/2021 Clinical Data: NECK PAIN Comparison: None. Findings: No compression fractures are seen. There is degenerative disc obliteration at C5-C6 and C7- T1. There is degenerative disc narrowing at C6-C7. There is anterior osteoarthritic spurring from C5 through T1. There is loss of the normal lordotic curvature. The oblique films show bilateral foramina l encroachment from C3-C4 through C7-T1. There is no prevertebral soft tissue swelling. The odontoid is unremarkable. The soft tissues of the neck and the lung apices are normal. There is a dextroscolio sis of the upper thoracic spine. XR/XR cervical spine 4-5V [id number] Impression: 1. Osteoarthritic change with degenerative disc narrowing from C5 through T1. 2. Bilateral foraminal encroachment from C3-C4 through C7-T1.
--- NOTE | 2021-06-28 08:10 | XR_ITS ---
WS: [id number] Right hip, AP and frog-leg views, 06/28/2021 Clinical Data: SCIATICA OF RIGHT SIDE Comparison: None. Findings: No fractures or dislocations are seen. There is an acetabular spur. No erosion, narrowing, sclerosis or cyst formation of the right hip is seen. The soft tissues are not remarkable. The adjacent pelvis is normal. The visualized right SI joint and the pubic symphysis are unremarkable. XR/XR hip RT 2-3V wo/w pel* [id number] Impression: Minimal osteoarthritis right hip. Tonnis classification: grade 1: sclerosis of femoral head and acetabulum or sli ght joint space narrowing or slight lipping at joint margins
--- NOTE | 2021-06-28 08:10 | XR_ITS ---
WS: [id number] Lumbar spine, 5 views including obliques, 06/28/2021 Clinical Data: SCIAITCA OF RIGHT SIDE Comparison: None. Findings: No compression fractures or subluxation is seen. Degenerative disc narrowing is seen from T12-L1 thro ugh L5-S1. There is osteoarthritic change involving lumbar vertebral bodies. Oblique films show no sp ondylolysis. The transverse processes and SI joints are normal. There are bilateral calcifications overlying both kidneys. There are clips in the right upper quadran t from a cholecystectomy. There is a large amount of fecal material throughout the colon. XR/XR lumbar spine min 4V [id number] Impression: 1. Degenerative disc narrowing at all levels from T12-L1 through L5-S1. 2. Osteoarthritis of all lumbar vertebral bodies.
== END 2021-06-28 08:00 | disposition home or self-care (01) ==
PROVIDERS: PCP Family Medicine; Visit Provider Family Medicine
DX: M54.31 Sciatica, right side (principal); M47.816 Spondylosis without myelopathy or radiculopathy, lumbar region; M54.2 Cervicalgia
CPT/HCPCS: 72050; 72110; 73502

== ENCOUNTER → 2021-08-29 09:02 | Outpatient (BNVA) | payer MEDICARE, OTHER, SELFPAY | PROVIDERS: PCP Family Medicine; Visit Provider Internal Medicine Rheumatology | DX: M15.9 Polyosteoarthritis, unspecified (principal); Z79.899 Other long term (current) drug therapy; M72.0 Palmar fascial fibromatosis [Dupuytren]; I73.00 Raynaud's syndrome without gangrene; Z96.653 Presence of artificial knee joint, bilateral | CPT/HCPCS: 99204 ==

== ENCOUNTER → 2021-11-26 15:18 | Outpatient (BNVA) | payer MEDICARE, OTHER, SELFPAY | PROVIDERS: PCP Family Medicine; Visit Provider Orthopaedic Surgery | DX: Z96.651 Presence of right artificial knee joint (principal) | CPT/HCPCS: 73560; 73565 ==

== ENCOUNTER → 2022-06-25 13:05 | Outpatient (BNVA) | payer MEDICARE, OTHER, SELFPAY | PROVIDERS: PCP Family Medicine; Visit Provider Orthopaedic Surgery | DX: M19.011 Primary osteoarthritis, right shoulder (principal) | CPT/HCPCS: 99212 ==

== ENCOUNTER → 2022-11-18 13:04 | Outpatient (BNVA) | payer MEDICARE, OTHER, SELFPAY | PROVIDERS: PCP Family Medicine; Visit Provider Orthopaedic Surgery | DX: M87.811 Other osteonecrosis, right shoulder (principal) | CPT/HCPCS: 99213 ==

== ENCOUNTER → 2023-03-13 10:20 | Outpatient (BNVA) | payer MEDICARE, OTHER, SELFPAY | PROVIDERS: PCP Family Medicine; Visit Provider Student in an Organized Health Care Education/Training Program | DX: M72.0 Palmar fascial fibromatosis [Dupuytren] (principal) | CPT/HCPCS: 73130; 99204 ==

== ENCOUNTER → 2023-04-08 10:44 | Outpatient (BNVA) | payer MEDICARE, OTHER, SELFPAY | PROVIDERS: PCP Clinical Nurse Specialist Adult Health; Visit Provider Orthopaedic Surgery | DX: M87.811 Other osteonecrosis, right shoulder (principal) | CPT/HCPCS: 88304; 88342; 99213 ==

== ENCOUNTER 2023-05-16 06:00 | Outpatient (CLI) | payer MEDICARE, OTHER, SELFPAY | END 2023-05-16 06:01 | LOC: SOT 05-22 14:50 | PROVIDERS: PCP Family Medicine; Visit Provider Student in an Organized Health Care Education/Training Program | DX: Z46.89 Encounter for fitting and adjustment of other specified devices (principal); M72.0 Palmar fascial fibromatosis [Dupuytren] | CPT/HCPCS: 97760; L3919 ==

== ENCOUNTER → 2023-05-18 10:37 | Outpatient (BNVA) | payer MEDICARE, OTHER, SELFPAY | PROVIDERS: PCP Family Medicine; Visit Provider Student in an Organized Health Care Education/Training Program | DX: M72.0 Palmar fascial fibromatosis [Dupuytren] (principal); M79.641 Pain in right hand | CPT/HCPCS: 20527; 20610; 99214; J0775 ==

== ENCOUNTER → 2023-05-21 06:50 | Outpatient (BNVA) | payer MEDICARE, OTHER, SELFPAY | PROVIDERS: PCP Family Medicine; Visit Provider Student in an Organized Health Care Education/Training Program | DX: M72.0 Palmar fascial fibromatosis [Dupuytren] (principal) | CPT/HCPCS: 20527; 26341; 99214 ==

== ENCOUNTER → 2023-06-25 07:36 | Outpatient (BNVA) | payer MEDICARE, OTHER, SELFPAY | PROVIDERS: PCP Family Medicine; Visit Provider Student in an Organized Health Care Education/Training Program | DX: M72.0 Palmar fascial fibromatosis [Dupuytren] | CPT/HCPCS: 99213 ==

== ENCOUNTER → 2023-08-25 15:12 | Outpatient (BNVA) | payer MEDICARE, OTHER, SELFPAY | PROVIDERS: PCP Family Medicine; Visit Provider Student in an Organized Health Care Education/Training Program | DX: M72.0 Palmar fascial fibromatosis [Dupuytren] (principal) | CPT/HCPCS: 20527; 99214 ==

== ENCOUNTER 2023-08-28 06:00 | Outpatient (CLI) | payer MEDICARE, OTHER, SELFPAY | END 2023-08-28 06:01 | LOC: SOT 09-07 09:35 | PROVIDERS: PCP Family Medicine; Visit Provider Student in an Organized Health Care Education/Training Program | DX: M72.0 Palmar fascial fibromatosis [Dupuytren] (principal) | CPT/HCPCS: 97760; 99213; L3923 ==

== ENCOUNTER 2023-11-12 15:33 | Outpatient (CLI) | payer OTHER, SELFPAY ==
--- NOTE | 2023-11-12 16:32 | MR_ITS ---
WS: [id number] MRI RIGHT SHOULDER NONCONTRAST TECHNIQUE: Sagittal T2, coronal T1, T2 and proton density imaging. Axial gradient PDE imaging. CLINICAL INFORMATION: RIGHT SHOULDER PAIN COMPARISON: None. FINDINGS: Chronic deformity of the glenohumeral articulation with high riding humeral head. Postoperative mckeon es humeral head with concave deformity of the glenohumeral articulation. Advanced degenerative arthri tis of the glenohumeral articulation with subchondral cystic change involving the glenoid with subcho ndral sclerosis. Loss of the articular cartilage. High riding humeral head impinges the acromion. Adv anced arthritis at the AC joint with subacromial fluid. Small glenohumeral effusion. 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 Suspected interval repair with a few intact f ibers visualized anteriorly and distally. Fatty atrophy of the supraspinatus musculature. Infraspinat us appears intact. Chronic appearing high-grade tear of the subscapularis tendon with a few intact fibers visualized dis tally. This may be due to interval repair. Mild fatty atrophy of the infraspinatus and subscapularis. Biceps tendon not visualized within the bicipital groove. Overall findings are similar to prior MRI 04/10/2020 IMPRESSION: 1. 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 2. Concave deformity involving the medial humeral head is unchanged from previous and may be posttra umatic or postoperative. 3. 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 Loss of articular cartilage. 4. Complete loss of the subacromial space with high riding humeral head. 5. Chronic appearing high-grade tear of the supraspinatus with prior repair. Some intact fibers are visualized anteriorly and distally. 6. Chronic appearing high-grade tear of the subscapularis with a few intact fibers visualized distal ly. This may be due to prior repair. 7. Biceps tendon not visualized within the bicipital groove.
== END 2023-11-12 15:34 | disposition home or self-care (01) ==
LOC: RAD 15:35
PROVIDERS: PCP Family Medicine; Visit Provider Family Medicine
DX: M21.821 Other specified acquired deformities of right upper arm (principal); Z98.890 Other specified postprocedural states; M19.011 Primary osteoarthritis, right shoulder; M75.101 Unspecified rotator cuff tear or rupture of right shoulder, not specified as traumatic; S46.811A Strain of other muscles, fascia and tendons at shoulder and upper arm level, right arm, initial encounter; X58.XXXA Exposure to other specified factors, initial encounter
CPT/HCPCS: 73221

== ENCOUNTER → 2024-08-11 07:58 | Outpatient (BNVA) | payer MEDICARE, OTHER, SELFPAY | PROVIDERS: PCP Clinical Nurse Specialist Adult Health; Visit Provider Nurse Practitioner Family | DX: L21.8 Other seborrheic dermatitis (principal); L44.8 Other specified papulosquamous disorders; L57.8 Other skin changes due to chronic exposure to nonionizing radiation; L81.4 Other melanin hyperpigmentation | CPT/HCPCS: 99204 ==

== ENCOUNTER → 2024-09-13 10:56 | Outpatient (BNVA) | payer MEDICARE, OTHER, SELFPAY | PROVIDERS: PCP Clinical Nurse Specialist Adult Health; Visit Provider Nurse Practitioner Family | DX: L21.8 Other seborrheic dermatitis (principal); L57.8 Other skin changes due to chronic exposure to nonionizing radiation; L81.4 Other melanin hyperpigmentation | CPT/HCPCS: 99213 ==

== ENCOUNTER 2024-09-27 14:10 | Inpatient (IN) | payer OTHER, SELFPAY ==
[2024-09-27] VITALS (10 sets, daily range): BP systolic 100–149; BP diastolic 72–89; PULSE 80–122; RESP 12–20; TEMP 36.7–36.9; O2SAT 92–98; BMI 23.6; BMI 23.4
--- NOTE | 2024-09-27 14:33 | XRR_ITS ---
PROCEDURE INFORMATION: Exam: XR Chest Exam date and time: 09/27/2024 2:39 PM Age: 84 years old Clinical indication: Cough and dyspnea; Additional info: Dyspnea/cough TECHNIQUE: Imaging protocol: Radiologic exam of the chest. Views: 1 view. COMPARISON: CT chest w con* [id number] 12/06/2019 10:24 AM FINDINGS: Lungs: No focal consolidation. Pleural spaces: No evidence of pneumothorax. No evidence of pleural effusion. Heart/Mediastinum: Cardiomediastinal silhouette is within normal limits. Bones/joints: No evidence of acute osseous abnormality. Severe bilateral glenohumeral osteoarthritis XR/XR chest 1V portable [id number] IMPRESSION: 1. No acute cardiopulmonary abnormality.
[2024-09-27] MEDS: dilTIAZem 5 mg/mL SDV 5 mL 20 MG IVP (14:46)
[2024-09-27] MEDS: dilTIAZem 100 MG in sodium chloride 0.9% (add-van) 100 ML IV (14:46)
--- NOTE | 2024-09-27 14:47 | ED_ITS ---
HPI - Arrhythmia/Palpitations 2 General: Chief Complaint: Arrhythmia/Palpitations Stated Complaint: A-fib, RVR Time Seen by Provider: 09/27/24 14:27 History of Present Illness: 84-year-old male presents emergency room he was at his doctor's office at the [place] [facility] they noted to find him in A-fib with RVR. He had really had no significant symptoms no chest x-ray no shortness of breath. Related Data Home Medications Medication Instructions Recorded Confirmed citalopram 20 mg tablet 20 mg PO BID 12/06/19 09/28/24 hydrochlorothiazide 25 mg tablet 25 mg PO DAILY 12/06/19 09/28/24 tamsulosin 0.4 mg capsule (Flomax) 0.4 mg PO BEDTIME 07/17/20 09/28/24 tramadol 100 mg tablet 100 mg PO DAILY 08/29/21 09/28/24 ezetimibe 10 mg tablet 10 mg PO DAILY 06/29/24 09/28/24 metoprolol tartrate 50 mg tablet 25 mg PO BID 06/29/24 09/28/24 gabapentin 100 mg capsule 100 mg PO BID 09/28/24 09/28/24 hydroxyzine HCl 10 mg tablet 10 mg PO DAILY 09/28/24 09/28/24 Previous Rx's Medication Instructions Recorded custom thermoplastic night splint #1 ea 05/21/23 NIGHT SPLINT LEFT #1 ea 08/28/23 Allergies Allergy/AdvReac Type Severity Reaction Status Date / Time gabapentin Allergy Intermediate ADR-Confusi Verified 06/29/24 15:14 on amlodipine Allergy ADV-Weaknes Verified 06/29/24 15:14 s Review of Systems 2 Const: Denies: fever(s) or chills Card: Denies: chest pain Resp: Denies: dyspnea GI: Denies: abdominal pain : Denies: dysuria, urinary frequency or urinary urgency Musc: Denies: neck pain or back pain Skin/Breast: Denies: rash PFSH ED 2 PFSH: Medical History Hyperlipidemia Benign hypertension Pigmented skin lesion of uncertain behavior of torso Dupuytren's contracture of both hands Osteoarthritis of hands, bilateral Hypertension Gastritis High cholesterol Calculus of kidney Gastric erosions Surgical History Hx of appendectomy Hx of cholecystectomy Hx of craniotomy History of bilateral knee replacement History of total left knee replacement Status post left knee replacement Family History Mother Diabetes Father Stroke Cancer Hypertension Social History Smoking and tobacco/nicotine status: never used tobacco/nicotine Alcohol intake: never Substance/Drug Use: never Physical Exam 2 Const: GENERAL APPEARANCE: cooperative ORIENTATION/CONSCIOUSNESS: Yes awake, Yes oriented to person, Yes oriented to place and Yes oriented to time HENMT: COMMON NORMALS: normocephalic, atraumatic and hearing grossly normal bilaterally HEAD & SCALP: normocephalic and atraumatic Resp: COMMON NORMALS: normal respiratory effort, No retractions, No use of accessory muscles and clear to auscultation bilaterally AUSCULTATION: clear to auscultation bilaterally Cardio: COMMON NORMALS: No murmurs present (Cardio) RATE: tachycardic R HYTHM: abnormal rhythm irregularly irregular GI: COMMON NORMALS: Soft to palpation and No hepatosplenomegaly present A USCULTATION: Yes normoactive bowel sounds PALPATION: Yes Soft to palpation, No Tenderness to palpation present (GI), No Guarding due to palpation present (GI) and Yes No hepatosplenomegaly present Extremity: COMMON NORMALS: normal to inspection, capillary refill normal, no clubbing, cyanosis or edema, no calf tenderness and no pedal edema Neuro: SENSORIUM/ORIENTATION: Yes oriented to person, Yes oriented to place and Yes oriented to time Skin: COMMON NORMALS: no rashes or lesions noted GENERAL SKIN EXAM: no rashes or lesions noted Course 2 Vital Signs: Vital signs: Vital Signs Temperature 97.5 F L 09/28/24 08:00 Pulse Rate 76 09/28/24 11:10 Respiratory Rate 18 09/28/24 08:00 Blood Pressure 98/68 09/28/24 11:10 Pulse Oximetry 94 09/28/24 11:10 Oxygen Delivery Me thod Room Air 09/28/24 08:00 MDM - Arrhythmia/Palpitations Medical Decision Making Patient presents A-fib RVR improved with Cardizem. Labs reviewed discussed with the hospitalist orders written will admit for further evaluation and management. Medical Records I reviewed the patient's medical records. Lab Data I reviewed the patient's lab results. 09/28/24 02:29 09/28/24 02:29 Radiology Impressions Chest X-Ray 09/27/24 14:33 IMPRESSION: 1. No acute cardiopulmonary abnormality. Head CT 09/27/24 16:31 IMPRESSION: 1. No acute intracranial abnormality. ASSESSMENT: ASPECTS ([place] Stroke Program Early CT Score) is 10. Laboratory Results WBC 8.91 10^3/uL (3.29-11.43) 09/27/24 13:58 RBC 4.24 10^6/uL (3.85-5.65) 09/27/24 13:58 Hgb 14.20 g/dL (11.27-16.99) 09/27/24 13:58 Hct 41.9 % (37-53) 09/27/24 13:58 MCV 98.8 fl (82-101) 09/27/24 13:58 MCH 33.5 pg (27-33) H 09/27/24 13:58 MCHC 33.9 g/dL (30-55) 09/27/24 13:58 RDW 11.9 % (12.1-15.1) L 09/27/24 13:58 Plt Count 188 10^3/cmm (157-399) 09/27/24 13:58 MPV 11.5 fL (7.4-10.4) H 09/27/24 13:58 Neut % (Auto) 72.3 % 09/27/24 13:58 Lymph % (Auto) 16.8 % 09/27/24 13:58 [place] % (Auto) 8.3 % 09/27/24 13:58 Eos % (Auto) 1.8 % 09/27/24 13:58 Baso % (Auto) 0.4 % 09/27/24 13:58 Neut # (Auto) 6.43 10^3/uL (1.8-7.7) 09/27/24 13:58 Lymph # (Auto) 1.5 10^3/uL (0.8-4.8) 09/27/24 13:58 [place] # (Auto) 0.7 10^3/uL (0.2-0.9) 09/27/24 13:58 Eos # (Auto) 0.2 10^3/uL (0.0-0.8) 09/27/24 13:58 Baso # (Auto) 0.0 10^3/uL (0.0-0.1) 09/27/24 13:58 Nucleated RBC % (auto) 0 % 09/27/24 13:58 Nucleated RBCs # 0.0 /100WBC 09/27/24 13:58 PT 12.30 SECONDS (12.1-14.9) 09/27/24 13:58 INR 0.89 (0.8-1.2) 09/27/24 13:58 APTT 43.7 SECONDS (23.9-36.7) H 09/27/24 13:58 D-Dimer 3.47 ug/mLFEU (0-0.59) H 09/27/24 13:58 Sodium 136 mmol/L (136-145) 09/27/24 13:58 Potassium 3.1 mmol/L (3.5-5.1) L 09/27/24 13:58 Chloride 96 mmol/L (98-107) L 09/27/24 13:58 Carbon Dioxide 29 mmol/L (22-29) 09/27/24 13:58 Anion Gap 14.1 (5-19) 09/27/24 13:58 BUN 15 mg/dL (8-23) 09/27/24 13:58 Creatinine 1.1 mg/dL (0.7-1.2) 09/27/24 13:58 GFR Calculation Not Reportable 09/27/24 13:58 Glucose 107 mg/dL (65-115) 09/27/24 13:58 Calculated Osmolality 283 mOsm/kg (285-295) L 09/27/24 13:58 Calcium 8.8 mg/dL (8.5-10.5) 09/27/24 13:58 Total Bilirubin 0.6 mg/dL (0.15-1.2) 09/27/24 13:58 AST 29 U/L (0-40) 09/27/24 13:58 ALT 16 U/L (0-41) 09/27/24 13:58 Alkaline Phosphatase 159 U/L (40-130) H 09/27/24 13:58 Total Protein 7.4 g/dL (6.6-8.7) 09/27/24 13:58 Albumin 4.0 g/dL (3.5-5.2) 09/27/24 13:58 Globulin 3.4 g/dL (1.3-4.6) 09/27/24 13:58 TSH 2.07 uIU/mL (0.27-4.20) 09/27/24 13:58 All radiology interpretation(s) finalized by discharge Discharge Plan Discharge Patient Disposition: Admitted As Inpatient Admit Provider: Jann Stone Clinical Impression: Atrial fibrillation with RVR Condition: Stable Coding Level of Care Code ED Fertilizing Machine Operator for Gladys Hernandez
[2024-09-27 14:49] LABS: Basophils % 0.4 %; Eosinophils # 0.2 10^3/uL (0.0-0.8); Eosinophils % 1.8 %; Hematocrit 41.9 % (37-53); Lymphocytes # 1.5 10^3/uL (0.8-4.8); Lymphocytes % 16.8 %; Mean Corpuscular HGB Conc 33.9 g/dL (30-55); Mean Corpuscular Hemoglobin 33.5 pg (27-33); Mean Corpuscular Volume 98.8 fl (82-101); Mean Platelet Volume 11.5 fL (7.4-10.4); Monocytes # 0.7 10^3/uL (0.2-0.9); Monocytes % 8.3 %; Neutrophils # 6.43 10^3/uL (1.8-7.7); Neutrophils % 72.3 %; Nucleated Red Blood Cells % 0 %; Platelet Count 188 10^3/cmm (157-399); Red Blood Count 4.24 10^6/uL (3.85-5.65); Red Cell Distribution Width 11.9 % (12.1-15.1); White Blood Count 8.91 10^3/uL (3.29-11.43)
[2024-09-27 15:01] LABS: Alanine Aminotransferase 16 U/L (0-41); Alkaline Phosphatase 159 U/L (40-130); Anion Gap 14.1 (5-19); Aspartate Amino Transferase 29 U/L (0-40); Blood Urea Nitrogen 15 mg/dL (8-23); Calcium 8.8 mg/dL (8.5-10.5); Carbon Dioxide 29 mmol/L (22-29); Chloride 96 mmol/L (98-107); Creatinine Clr Calc Pharmacy 50.5202; Globulin 3.4 g/dL (1.3-4.6); Glucose 107 mg/dL (65-115); Osmolality Calculated 283 mOsm/kg (285-295); Potassium 3.1 mmol/L (3.5-5.1); Sodium 136 mmol/L (136-145); Total Bilirubin 0.6 mg/dL (0.15-1.2); Total Protein 7.4 g/dL (6.6-8.7)
--- NOTE | 2024-09-27 16:31 | ECG_ITS ---
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 Measurements Intervals [place] Rate: 117 P: 118 NV: 148 QRS: 91 QRSD: 90 T: -40 QT: 327 QTc: 457 Interpretive Statements atrial fibrillation with rapid ventricular rate nonspecific IVCD BORDERLINE RIGHT AXIS DEVIATION [QRS AXIS > 90] SEPTAL MYOCARDIAL INFARCTION , PROBABLY OLD [40+ ms Q WAVE IN V1/V2] MODERATE T-WAVE ABNORMALITY, CONSIDER INFERIOR ISCHEMIA [-0.1+ mV T-WAVE IN II/aVF] Compared to ECG 07/09/2020 11:08:37 Ventricular premature complex(es) now present Myocardial infarct finding now present T-wave abnormality now present Possible ischemia now present Sinus rhythm no longer present Electronically Signed On 09-29-2024 21:33:17 FINANCIAL SERVICES TECHNICIAN by Ana Agarwal M.D. [email or web address]
--- NOTE | 2024-09-27 16:31 | CTR_ITS ---
PROCEDURE INFORMATION: Exam: CT Head Without Contrast Exam date and time: 09/27/2024 5:32 PM Age: 84 years old Clinical indication: Stroke-like symptoms; Altered mental status/memory loss; Additional info: Symptoms of acute stroke TECHNIQUE: Imaging protocol: Computed tomography of the head without contrast. Radiation optimization: All CT scans at this facility use at least one of these dose optimization techniques: automated exposure control; mA and/or kV adjustment per patient size (includes targeted exams where dose is matched to clinical indication); or iterative reconstruction. Other technique: STROKE PROTOCOL was implemented. COMPARISON: CR XR cervical spine 4-5V [id number] 06/28/2021 8:16 AM RADIATION DOSE METRICS: Total DLP (mGy-cm): 1183.38 FINDINGS: Brain: No evidence of intra-axial or extra-axial hemorrhage. No mass effect or midline shift. Dash-white differentiation is maintained. Basilar cisterns are patent. There is prominence of the posterior fossa subarachnoid space. Cerebral ventricles: No hydrocephalus. Paranasal sinuses: The visualized paranasal sinuses are well aerated. Mastoid air cells: The visualized mastoids and middle ears are clear. Bones: Frontal craniotomy/cranioplasty. Calvarium is otherwise intact. No evidence of acute fracture. Soft tissues: No gross soft tissue abnormality. CT/CT head thrombolytic [id number] IMPRESSION: 1. No acute intracranial abnormality. ASSESSMENT: ASPECTS ([place] Stroke Program Early CT Score) is 10.
[2024-09-27 16:47] LABS: Thyroid Stimulating Hormone 2.07 uIU/mL (0.27-4.20)
[2024-09-27 17:19] LABS: INR 0.89 (0.8-1.2)
[2024-09-27 17:21] LABS: Partial Thromboplastin Time 43.7 SECONDS (23.9-36.7)
--- NOTE | 2024-09-27 17:23 | P.HP_ITS ---
Providers/Chief Complaint 2 Admitting Physician: Jann Stone MD Primary Care Provider: Vincent Cedeño Chief Complaint: A-fib, RVR History of Present Illness Dann Peng is a 84 year old male with past medical history of hypertension, BPH was sent into the ER [facility] where he had gone for general health checkup and an EKG he was found to have A-fib with RVR. Patient himself denied any nausea vomiting, headache, chest pain, dizziness, palpitations. Patient himself denies any past history of bleeding, hematemesis, melena, hematuria or blood transfusion. He denies history of smoking or difficulty breathing. In the ER he was started on Cardizem drip after which his heart rate settled and is currently running at 80 bpm though continues to remain in A-fib. Patient is currently saturating well more than 92% on room air. Review of Systems 2 General: Reports: 10 or more systems reviewed and unremarkable except in HPI and below Const: Denies: fever(s), chills, body aches, change in appetite, change in weight, malaise, night sweats, diaphoresis, change in sleep pattern, daytime sleepiness or snoring Eyes: Denies: change in vision, blurry vision, photophobia, eye discomfort or eye discharge ENMT: Denies: throat pain, enlarged tonsils, hoarseness, mouth pain, oral sores, dry mouth, tinnitus, nasal congestion or post nasal drip Card: Denies: chest pain, palpitations, irregular heart rhythm, edema, swelling of feet/ankles, lightheadedness, syncope, pre-syncope, dyspnea on exertion, orthopnea, leg pain with exertion or acrocyanosis Resp: Denies: dyspnea, productive cough, non-productive cough, wheezing, stridor, pain on inspiration, change in phlegm color, hemoptysis or chest congestion GI: Denies: abdominal pain, nausea, vomiting, hematemesis, coffee ground emesis, dysphagia, heartburn, diarrhea, constipation, bloating, GI cramping, change in bowel habits, pain on defecation, hematochezia or melena : Denies: flank pain, difficulty urinating, dysuria, urinary frequency, urinary urgency, urinary hesitancy, urinary dribbling, difficulty starting urination, change in urine stream, nocturia or hematuria Musc: Denies: neck pain, back pain, extremity pain, joint pain, joint swelling, joint redness, joint stiffness or limited range of motion Neuro: Denies: headache(s), numbness in extremities, weakness in extremities, sensory changes, lack of coordination, difficulty walking, frequent falls, dizziness, vertigo, confusion, Slurred speech present, difficulty communicating thoughts or seizure-like activity Psych: Denies: anxiety, depression, mood swings, panic attacks, hopelessness or irritability Endo: Denies: polyuria, polydipsia, tired all the time, cold intolerance, excessive sweating, flushing or heat intolerance Jalen/Lymph: Denies: easy bruising or easy bleeding All/Imm: Denies: tongue swelling, facial swelling or acute wheezing Medications/Allergies Home Medications Medication Instructions Recorded Confirmed Last Taken Type citalopram 20 mg tablet 20 mg PO BID 12/06/19 06/29/24 07/15/20 History cyclobenzaprine 10 mg tablet 10 mg PO TID PRN Muscle Spasm 12/06/19 06/29/24 05/09/20 History esomeprazole magnesium 20 mg 20 mg PO DAILY 12/06/19 06/29/24 07/15/20 History capsule,delayed release (Nexium) ferrous sulfate 325 mg (65 mg 325 mg PO DAILY 12/06/19 06/29/24 07/15/20 History iron) tablet hydrochlorothiazide 25 mg tablet 25 mg PO DAILY 12/06/19 06/29/24 07/15/20 History aspirin 325 mg tablet,delayed 325 mg PO DAILY #30 tabs 01/10/20 06/29/24 07/13/20 Rx release tamsulosin 0.4 mg capsule (Flomax) PO BEDTIME 07/17/20 06/29/24 07/15/20 History tramadol 100 mg tablet 100 mg PO DAILY 08/29/21 08/28/23 Unknown History custom thermoplastic night splint #1 ea 05/21/23 08/28/23 Unknown Rx NIGHT SPLINT LEFT #1 ea 08/28/23 08/28/23 Unknown Rx ciprofloxacin 0.3 %-dexamethasone 4 drp otic (ear) BID 7 days #7.5 mL 06/29/24 06/29/24 Unknown Rx 0.1 % ear drops,suspension ezetimibe 10 mg tablet 10 mg PO DAILY 06/29/24 06/29/24 Unknown History fluconazole 100 mg tablet 100 mg PO Q72H #2 tabs 06/29/24 06/29/24 Unknown Rx (Diflucan) metoprolol tartrate 50 mg tablet 50 mg PO BID 06/29/24 06/29/24 Unknown History Allergies Allergy/AdvReac Type Severity Reaction Status Date / Time gabapentin Allergy Intermediate ADR-Confusi Verified 06/29/24 15:14 on amlodipine Allergy ADV-Weaknes Verified 06/29/24 15:14 s PFSH Acute 2 PFSH: Medical History Hyperlipidemia Benign hypertension Pigmented skin lesion of uncertain behavior of torso Dupuytren's contracture of both hands Osteoarthritis of hands, bilateral Hypertension Gastritis High cholesterol Calculus of kidney Gastric erosions Surgical History Hx of appendectomy Hx of cholecystectomy Hx of craniotomy History of bilateral knee replacement History of total left knee replacement Status post left knee replacement Family History Mother Diabetes Father Stroke Cancer Hypertension Social History Smoking and tobacco/nicotine status: never used tobacco/nicotine Alcohol intake: never Substance/Drug Use: never Vitals/I&O/Wt Last Vital Signs Temp 98.1 F 09/27/24 14:25 Pulse 87 09/27/24 16:13 Resp 19 H 09/27/24 16:13 BP 120/79 09/27/24 16:13 Pulse Ox 94 09/27/24 16:13 O2 Del Method Room Air 09/27/24 16:13 Weight last 48 hrs Weight 72.575 kg Physical Exam 2 Narrative: General: No acute distress, AO x3 HEENT: PERRLA, pupils bilaterally equal and reactive Chest: Normal vesicular breath sounds, no added sounds, equal good air entry bilaterally CVS: S1-S2 irregularly irregular, pansystolic murmur at apex radiating to anterior axillary line, no tachycardia, no gallops, no rubs Abdomen: Soft, nontender, no organomegaly, bowel sounds present Neuro: No focal deficits, no facial deformity, AO x3, power 5/5 in all limbs Data 09/27/24 13:58 09/27/24 13:58 A&P Assessment and plan (1) Atrial fibrillation with RVR: New diagnosis. Currently rate controlled. On cardizem drip of 5. Increase home dose of metoprolol to 75 mg twice daily. Wean Cardizem drip keeping heart rate below 100 bpm. If heart rate continues to go up we will either increase the dose of metoprolol or add low-dose Cardizem depending on the blood pressures. Check echocardiogram, D-dimer. Appreciate TSH. Discussed anticoagulation with the patient for stroke prevention. Patient is agreeable for anticoagulation. For now we will start on full dose Lovenox 1 mg/kg body weight every 12 hourly. Depending on the Jaron Vas score we will plan to switch to Eliquis versus full dose aspirin. (2) Benign hypertension: Goal blood pressure less than 140/90 mmHg. At home patient takes metoprolol and hydrochlorothiazide. Hold off on hydrochlorothiazide for now. Continue with increased dose of metoprolol as above. (3) Hyperlipidemia: (4) Moderate mitral regurgitation: Plan Full code Cardiac diet Full dose Lovenox to be sufficient for DVT prophylaxis Protonix for PUD prophylaxis Attestations 2 Medical Necessity Statement*: Admission for more than 2 midnights for management of A-fib with RVR as patient is on Cardizem drip while can transition to oral rate limiting medications and anticoagulation is initiated Diagnoses Atrial fibrillation with RVR I48.91 Benign hypertension I10 Hyperlipidemia E78.5 Moderate mitral regurgitation I34.0
[2024-09-27 17:26] LABS: Basophils % 0.4 %; Eosinophils # 0.2 10^3/uL (0.0-0.8); Eosinophils % 1.9 %; Hematocrit 41.3 % (37-53); Lymphocytes # 1.5 10^3/uL (0.8-4.8); Lymphocytes % 18.1 %; Mean Corpuscular HGB Conc 34.9 g/dL (30-55); Mean Corpuscular Hemoglobin 34.5 pg (27-33); Monocytes # 0.8 10^3/uL (0.2-0.9); Neutrophils # 5.83 10^3/uL (1.8-7.7); Neutrophils % 70.4 %; Nucleated Red Blood Cells % 0 %; Platelet Count 190 10^3/cmm (157-399); Red Blood Count 4.17 10^6/uL (3.85-5.65); Red Cell Distribution Width 11.9 % (12.1-15.1); White Blood Count 8.29 10^3/uL (3.29-11.43)
[2024-09-27 17:44] LABS: D Dimer 3.47 ug/mLFEU (0-0.59)
[2024-09-27 17:46] LABS: Alanine Aminotransferase 15 U/L (0-41); Albumin Level 3.8 g/dL (3.5-5.2); Alkaline Phosphatase 139 U/L (40-130); Anion Gap 13.6 (5-19); Aspartate Amino Transferase 24 U/L (0-40); Blood Urea Nitrogen 14 mg/dL (8-23); Calcium 8.7 mg/dL (8.5-10.5); Carbon Dioxide 31 mmol/L (22-29); Chloride 99 mmol/L (98-107); Creatinine Clr Calc Pharmacy 50.5202; Globulin 2.5 g/dL (1.3-4.6); Glucose 114 mg/dL (65-115); Osmolality Calculated 291 mOsm/kg (285-295); Potassium 3.6 mmol/L (3.5-5.1); Sodium 140 mmol/L (136-145); Total Bilirubin 0.5 mg/dL (0.15-1.2); Total Protein 6.3 g/dL (6.6-8.7)
[2024-09-27 17:50] LABS: Procalcitonin 0.06 ng/mL (0-0.5)
--- NOTE | 2024-09-27 17:58 | PC.NURSE ---
PATIENT ATTEMPTED TO VOID, PATIENT UNABLE.
--- NOTE | 2024-09-27 18:27 | USCV_ITS ---
Dann Peng Age: 84 Gender: M : 1940 Exam Date: 09/27/2024 17:52 Ordering Phys: Jann Stone MD Technologist: JAVIER [place] [facility] [place]: afib BP: 149 / 89 HR: 80 Rhythm: Atrial fibrillation Technical Quality: Adequate MEASUREMENTS (Male / Female) Normal Values 2D ECHO LV Diastolic Diameter PLAX 3.1 cm 4.2 - 5.9 / 3.9 - 5.3 cm IVS Diastolic Thickness 1.1 cm 0.6 - 1.0 / 0.6 - 0.9 cm IVS Systolic Thickness 1.7 cm LVPW Diastolic Thickness 1.1 cm 0.6 - 1.0 / 0.6 - 0.9 cm LVPW Systolic Thickness 1.6 cm LVOT Diameter 1.8 cm LV Ejection Fraction 2D Teich 66.4 % LV Ejection Fraction MOD 4C 66.1 % LV Ejection Fraction MOD 2C 51.7 % LV Ejection Fraction 2C AL 61.1 % LA Diameter 3.8 cm LA Sys Volume AL 74.0 cm cubed LA Sys Volume Index AL 39.3 cm cubed/m squared Aorta at Sinotubular Diameter 2.4 cm IVC Diameter 1.2 cm M-MODE LA Ao Ratio MM 1.4 AV Cusp Separation MM 1.6 cm DOPPLER AV Peak Velocity 87.0 cm/s LVOT Peak Velocity 59.0 cm/s AV Area Cont Eq vti 1.8 cm squared AV Area Cont Eq pk 1.7 cm squared MV Peak Velocity 91.0 cm/s MV Area PHT 4.3 cm squared Mitral E to A Ratio 0.0 TV Peak Velocity 241.7 cm/s TR Peak Velocity 256.0 cm/s TR Peak Gradient 26.2 mmHg TV Peak E Velocity 50.0 cm/s Right Atrial Pressure 3.0 mmHg Pulmonary Artery Systolic Pressu 29.2 mmHg PV Peak Velocity 56.0 cm/s FINDINGS Left Ventricle Normal left ventricular size, systolic function and wall thickness, with no regional wall motion abnormalities. Left ventricular ejection fraction is estimated at 55 %. In the presence of atrial fibrillation diastolic function cannot be assessed accurately. Right Ventricle The right ventricle is normal in size and function. Right Atrium Moderately increased right atrial size. Left Atrium Mildly increased left atrial size. Mitral Valve Mildly thickened mitral valve. No mitral valve stenosis. Moderate mitral valve regurgitation. Aortic Valve Structurally normal aortic valve without significant sclerosis or stenosis. There is no aortic regurgitation. Tricuspid Valve Thickened tricuspid valve. Severe tricuspid valve regurgitation. Pulmonic Valve Structurally normal pulmonic valve without significant stenosis. There is no pulmonic regurgitation. Pericardium Normal pericardium without effusion. Aorta Normal ascending aorta dimension. IVC The inferior vena cava appears normal. CONCLUSIONS Normal left ventricular size, systolic function and wall thickness, with no regional wall motion abnormalities. Left ventricular ejection fraction is estimated at 55 %. In the presence of atrial fibrillation diastolic function cannot be assessed accurately. Moderately increased right atrial size. Thickened tricuspid valve. Severe tricuspid valve regurgitation. Mildly thickened mitral valve. No mitral valve stenosis. Moderate mitral valve regurgitation. There is no pericardial effusion. Pulmonary artery systolic pressure is within normal limits. Right atrial pressure is around 5 mm of mercury. Lakeisha Mckeon MD (Electronically Signed) Final Date: 27 September 2024 21:39 S
[2024-09-27 19:06] LABS: Iron 26 ug/dL (59-158); Percent Saturation 14.1 % (20-50); Total Iron Binding Capacity 184 mcg/dl; Unsaturated Iron Binding 158 ug/dL (112-347)
[2024-09-27 19:21] LABS: Vitamin B12 849 pg/mL (232-1245)
[2024-09-27] MEDS: tamsulosin 0.4 mg Capsule PO (20:23)
[2024-09-27] MEDS: metoprolol tartrate 50 mg Tablet 75 MG PO (20:23)
[2024-09-27] MEDS: enoxaparin 80 mg/0.8 mL Syringe 70 MG SUBCUT (20:23)
[2024-09-27] MEDS: citalopram 20 mg Tablet PO (20:23)
[2024-09-28] VITALS (16 sets, daily range): BP systolic 73–145; BP diastolic 48–96; PULSE 63–81; RESP 17–20; TEMP 36.4–37.2; O2SAT 92–97
[2024-09-28 03:12] LABS: Basophils % 0.5 %; Eosinophils # 0.2 10^3/uL (0.0-0.8); Eosinophils % 2.7 %; Hematocrit 38.2 % (37-53); Lymphocytes # 1.7 10^3/uL (0.8-4.8); Lymphocytes % 26.9 %; Mean Corpuscular HGB Conc 33.5 g/dL (30-55); Mean Corpuscular Hemoglobin 33.1 pg (27-33); Mean Corpuscular Volume 98.7 fl (82-101); Mean Platelet Volume 11.5 fL (7.4-10.4); Monocytes # 0.6 10^3/uL (0.2-0.9); Monocytes % 10.1 %; Neutrophils # 3.79 10^3/uL (1.8-7.7); Neutrophils % 59.5 %; Nucleated Red Blood Cells % 0 %; Platelet Count 196 10^3/cmm (157-399); Red Blood Count 3.87 10^6/uL (3.85-5.65); Red Cell Distribution Width 11.9 % (12.1-15.1); White Blood Count 6.36 10^3/uL (3.29-11.43)
[2024-09-28 03:34] LABS: Chol HDL Ratio 3.14 mg/dL (1.0-5.00); Cholesterol 132 mg/dL (0-200); HDL Cholesterol 42 mg/dL (60-100); LDL Cholesterol Calculated 68 mg/dL (50-129); LDL HDL Ratio 1.62 RATIO (0.00-3.22); Triglycerides 108 mg/dL (0-150)
[2024-09-28 03:39] LABS: Procalcitonin 0.06 ng/mL (0-0.5)
[2024-09-28 03:40] LABS: Alanine Aminotransferase 13 U/L (0-41); Albumin Level 3.6 g/dL (3.5-5.2); Alkaline Phosphatase 121 U/L (40-130); Anion Gap 12.5 (5-19); Aspartate Amino Transferase 21 U/L (0-40); Blood Urea Nitrogen 16 mg/dL (8-23); Calcium 8.8 mg/dL (8.5-10.5); Carbon Dioxide 30 mmol/L (22-29); Chloride 99 mmol/L (98-107); Creatinine Clr Calc Pharmacy 53.4981; Globulin 2.8 g/dL (1.3-4.6); Glucose 121 mg/dL (65-115); Magnesium 1.7 mg/dL (1.7-2.3); Osmolality Calculated 288 mOsm/kg (285-295); Phosphorus 3.2 mg/dL (2.5-4.5); Potassium 3.5 mmol/L (3.5-5.1); Sodium 138 mmol/L (136-145); Total Bilirubin 0.7 mg/dL (0.15-1.2); Total Protein 6.4 g/dL (6.6-8.7)
[2024-09-28 03:42] LABS: Estmated Average Glucose 100; Hemoglobin A1C 5.1 % (4.0-6.0)
[2024-09-28 03:51] LABS: Folate Level 15.2 ng/mL (4.5-32.2)
[2024-09-28] MEDS: dilTIAZem 100 MG in sodium chloride 0.9% (add-van) 100 ML IV (06:28)
[2024-09-28] MEDS: enoxaparin 80 mg/0.8 mL Syringe 70 MG SUBCUT ×2 (06:30→20:50)
[2024-09-28 08:45] LABS: Amphetamines Screen Urine Negative (Negative); Barbiturates Screen Urine Negative (Negative); Benzodiazepines Screen Urine Negative (Negative); Cocaine Screen Urine Negative (Negative); Opiate Screen Urine Negative (Negative); PCP Screen Urine Negative (Negative); THC Screen Urine Negative (Negative)
[2024-09-28 08:57] LABS: Bilirubin Urine Negative (Negative); Blood Urine Negative (Negative); Glucose Urine UA Negative (Normal); Ketones Urine Negative (Negative); Leukocyte Esterase Urine Negative (Negative); Nitrate Urine Negative (Negative); Protein Urine Negative (Negative); Specific Gravity, Urine 1.016 (1.005-1.030); Urine Appearance Clear (CLEAR); Urine Color Yellow (Yellow); pH Urine 6.5 (5-7)
[2024-09-28 08:59] LABS: Add Urine Microscopic? YES; Bacteria Urine None Seen /hpf; Hyaline Casts Urine 0-4 /lpf; Squamous Epithelial Cell Urine 0-5 /hpf (0-5); WBC Urine 0-5 /hpf (0-5)
[2024-09-28] MEDS: citalopram 20 mg Tablet PO (09:00)
[2024-09-28] MEDS: ezetimibe 10 mg Tablet PO (09:01)
[2024-09-28] MEDS: ferrous sulfate EC 325 mg Tablet PO (09:01)
[2024-09-28] MEDS: metoprolol tartrate 50 mg Tablet 75 MG PO (09:01)
[2024-09-28] MEDS: pantoprazole DR 40 mg Tablet PO (09:01)
--- NOTE | 2024-09-28 10:09 | PC.CHAP ---
Pastoral Care Encounter/Spiritual Assessment Type of Contact [] Declined sql application developer visit [] Patient/Family/Request visit [] Outpatient visit [] Follow-up visit [] Physician referral [] Code/Alert [x] Routine visit [] Staff referral [] Actively dying [] Patient sleeping [] Family support [] [] Out of room [] Palliative care [] [] Receiving care in room [] Pre-surgical visit [] Trauma [] Long length of stay [] ICU visit [] Other: Relational/Emotional Strength [x] Patient feels connected with others/family/visitors/staff [] Distress [] Loneliness/isolation [] Abandonment Spirituality of Patient [x] Person of Maame [] Attends Denominational of their Maame [x] Believes in Prayer [] Reads Bible or Moravian materials [] There are Spiritual issues to be addressed Assistant Account Executive Interventions [x] Prayer [x] Active listening [] Non-anxious presence [x] Spiritual/emotional support [] Crisis/trauma care [] Spiritual counseling [] Bereavement support [] Provided bereavement packet [] Provided Bible/devotional materials [] Provided toy/stuffed animal, coloring book to patient or family member [] Provided Communion [] Anointing/[place] [] Salvation [x] Completed spiritual assessment [] Other: Impact on Illness or Injury [] Angry [] Fearful [] Anxious [] Often cries [] Exhaustion [] Unable to work [] Unable to attend christian [] Unable to walk/stand [] Unable to read [] Unable to drive [] Unable to eat/drink [] Unable to sleep [] Unable to be with family [] Patient intubated [] Other: Summary Time spent with patient 5 min
--- NOTE | 2024-09-28 11:49 | PC.NURSE ---
orthostatic BPs Laying- 93/58 (map-69), hr-73 sitting- 84/57 (map-66), hr-77 standing-73/48 (map-56), hr-74... Pt denies any dizziness or other discomfort except with chronic shoulder pain up movement. Pt ambulated down hallways and was unsteady at first with a walker. HR- 90s to 100s upon activity. pt denies any dizziness or discomfort. pt yesterday stated he had 2 falls in the last 2 weeks. he said he just woke up on the floor, hit his head. had an old scab on left upper eyebrow and bruise on left upper cheekbone. Hospitalist notified. Received orders for orthostatic check and PT eval.
--- NOTE | 2024-09-28 12:51 | P.PN_ITS ---
Subjective 2 Subjective: Overnight patient's heart rate had remained stable. He has been on Cardizem of 5. During the day Cardizem was stopped and his heart rate remained stable both at rest and ambulation on an increased dose of metoprolol though patient was unsteady on standing up with dizziness. He does not have history of falls as an outpatient twice in the last few weeks with history of hitting his head few weeks ago. Vitals/I&O/Wt Last Vital Signs Temp 99.0 F 09/28/24 12:00 Pulse 81 09/28/24 12:00 Resp 20 H 09/28/24 12:00 BP 120/70 09/28/24 12:00 Pulse Ox 94 09/28/24 12:00 O2 Del Method Room Air 09/28/24 12:00 09/27/24 09/28/24 09/28/24 22:59 06:59 14:59 Intake Total 128.5 / 128.5 252 / 252 Output Total 600 / 600 350 / 350 Balance -600 / -600 128.5 / -471.5 -98 / -98 Weight last 48 hrs Weight 76.158 kg Weight 76.204 kg Weight 72.575 kg Physical Exam 2 Narrative: General: No acute distress, AO x3 HEENT: PERRLA, pupils bilaterally equal and reactive Chest: Normal vesicular breath sounds, no added sounds, equal good air entry bilaterally CVS: S1-S2 irregularly irregular, pansystolic murmur at apex radiating to anterior axillary line, no tachycardia, no gallops, no rubs Abdomen: Soft, nontender, no organomegaly, bowel sounds present Neuro: No focal deficits, no facial deformity, AO x3, power 5/5 in all limbs Data 09/28/24 02:29 09/28/24 02:29 A&P Assessment and plan (1) Atrial fibrillation with RVR: Rate controlled. Cardizem weaned off. Patient mildly orthostatic positive. Will decrease the dose of metoprolol to 50 mg twice daily. Appreciate TSH results. Appreciate echocardiogram showing normal EF of 55%, moderately increased RV size, thickened tricuspid valve, severe TR, moderate MR. Discussed anticoagulation with the patient for stroke prevention. Patient is agreeable for anticoagulation. For now we will start on full dose Lovenox 1 mg/kg body weight every 12 hourly. Jaron vas score?3. Patient would benefit with anticoagulation for stroke prevention. (2) Orthostatic hypotension: Could be in setting of dehydration versus home use of high-dose citalopram. Most likely cause of dizziness and fall at home. IV fluids normal saline at 100 cc/h. Watch for fluid overload. Orthostatic check every shift. Decrease citalopram to 20 mg oral daily. If blood pressure is not improving or patient continues to remain orthostatic can plan for adding midodrine. (3) Fall: Recurrent falls at home. Most likely in setting of orthostatic hypotension leading to dizziness and unsteady gait. Fall precautions PT evaluation. Treatment of orthostatic hypotension as below. CT head on admission negative for any bleed. (4) Unsteadiness on feet: Most likely in setting of orthostatic hypotension. Hold off on home dose of gabapentin for now. Continue to monitor for improvement in blood pressure. (5) Benign hypertension: Goal blood pressure less than 140/90 mmHg. At home patient takes metoprolol and hydrochlorothiazide. Hold off on hydrochlorothiazide for now. Continue with increased dose of metoprolol as above. (6) Hyperlipidemia: (7) Moderate mitral regurgitation: Plan Full code Cardiac diet Full dose Lovenox to be sufficient for DVT prophylaxis Protonix for PUD prophylaxis Attestations 2 Medical Necessity Statement*: Requires further hospitalization for management of unsteady gait in setting of orthostatic hypotension leading to recurrent falls, new diagnosis of A-fib Diagnoses Atrial fibrillation with RVR I48.91 Orthostatic hypotension I95.1 Fall W19.XXXA Unsteadiness on feet R26.81 Benign hypertension I10 Hyperlipidemia E78.5 Moderate mitral regurgitation I34.0
[2024-09-28] MEDS: sodium chloride 0.9% 1,000 ML 100 ML IV (13:00)
--- NOTE | 2024-09-28 17:06 | ECG_ITS ---
[facility] Date: 2024-09[facility]28 Pat Name: Dann Peng Department: Room: 106 Gender: Male Outreach Director: : 1940 Requested By: Jann Stone Order Number: [id number] Reading MD: Measurements Intervals [place] Rate: 62 P: 51 [place]: 193 QRS: 78 QRSD: 130 T: 37 QT: 442 QTc: 451 Interpretive Statements SINUS RHYTHM RIGHT BUNDLE BRANCH BLOCK [120+ ms QRS DURATION, UPRIGHT V1, 40+ ms S IN I/aVL/V4/V5/V6] [id number]
[2024-09-28] MEDS: metoprolol tartrate 50 mg Tablet PO (17:39)
--- NOTE | 2024-09-28 18:06 | PC.NURSE ---
converted back to Sinus rhythm Heart rate in 65-70s. notified hospitalist Dr Stone, recceived orders to continue IV fluids 100/hr, recheck orthostatic BP and EKG. Laying-111/66 sitting-124/76 standing-104/64. Pt denies any discomfort or dizziness.
[2024-09-28] MEDS: tamsulosin 0.4 mg Capsule PO (20:50)
[2024-09-29] VITALS: BP 127/74; PULSE 71; RESP 17; TEMP 36.7; O2SAT 95
[2024-09-29 04:00] VITALS: BP 109/88; PULSE 79; RESP 16; TEMP 36.9; O2SAT 97
[2024-09-29 04:05] LABS: Basophils % 0.8 %; Eosinophils # 0.2 10^3/uL (0.0-0.8); Eosinophils % 3.7 %; Hematocrit 37.3 % (37-53); Lymphocytes # 1.5 10^3/uL (0.8-4.8); Lymphocytes % 30.9 %; Mean Corpuscular HGB Conc 33.8 g/dL (30-55); Mean Corpuscular Hemoglobin 34.1 pg (27-33); Mean Corpuscular Volume 101.1 fl (82-101); Mean Platelet Volume 11.3 fL (7.4-10.4); Monocytes # 0.5 10^3/uL (0.2-0.9); Monocytes % 9.3 %; Neutrophils # 2.71 10^3/uL (1.8-7.7); Neutrophils % 55.1 %; Nucleated Red Blood Cells % 0 %; Platelet Count 178 10^3/cmm (157-399); Red Blood Count 3.69 10^6/uL (3.85-5.65); White Blood Count 4.92 10^3/uL (3.29-11.43)
[2024-09-29 04:28] LABS: Alanine Aminotransferase 13 U/L (0-41); Albumin Level 3.2 g/dL (3.5-5.2); Alkaline Phosphatase 124 U/L (40-130); Aspartate Amino Transferase 23 U/L (0-40); Blood Urea Nitrogen 24 mg/dL (8-23); Calcium 8.4 mg/dL (8.5-10.5); Carbon Dioxide 28 mmol/L (22-29); Chloride 105 mmol/L (98-107); Creatinine Clr Calc Pharmacy 45.2566; Globulin 2.8 g/dL (1.3-4.6); Glucose 101 mg/dL (65-115); Osmolality Calculated 296 mOsm/kg (285-295); Sodium 141 mmol/L (136-145); Total Bilirubin 0.5 mg/dL (0.15-1.2)
[2024-09-29 04:29] LABS: Anion Gap 11.9 (5-19); Potassium 3.9 mmol/L (3.5-5.1)
[2024-09-29 06:00] VITALS: PULSE 71
[2024-09-29] MEDS: enoxaparin 80 mg/0.8 mL Syringe 70 MG SUBCUT (06:28)
[2024-09-29 08:00] VITALS: BP 125/81; BP 145/84; BP 152/92; BP 155/86; PULSE 71; PULSE 75; PULSE 76; PULSE 80; RESP 20; TEMP 36.7; O2SAT 96
--- NOTE | 2024-09-29 09:24 | P.DS_ITS ---
Discharge Providers Date of Admission: 09/27/24 16:49 Date of Discharge: September 29, 2024 Attending Provider at Admission: Jann Stone MD Attending Provider at Discharge: Jann Stone MD Primary Care Provider: Vincent Cedeño Diagnoses at Discharge Discharge Diagnosis (1) Atrial fibrillation with RVR: Status: Acute (2) Orthostatic hypotension: Status: Acute (3) Fall: Status: Acute (4) Unsteadiness on feet: Status: Acute (5) Benign hypertension: Status: Acute (6) Hyperlipidemia: Status: Acute (7) Moderate mitral regurgitation: Status: Acute Reason for Visit Reason for Visit: A-fib, RVR Hospital Course Hospital Course Dann Peng is a 84 year old male with past medical history of hypertension, BPH was sent into the ER from [facility] where he had gone for general health checkup and an EKG he was found to have A-fib with RVR. Patient himself denied any nausea vomiting, headache, chest pain, dizziness, palpitations. Patient himself denies any past history of bleeding, hematemesis, melena, hematuria or blood transfusion. He denies history of smoking or difficulty breathing. He does give history of dizziness and fall last week when he was trying to get out of bed to make coffee. Gives history of hitting his head. States recently hydroxyzine has been added to his medication nightly. In the ER he was started on Cardizem drip after which his heart rate settled and is currently running at 80 bpm though continues to remain in A-fib. Patient is currently saturating well more than 92% on room air. Patient's home dose of metoprolol was increased and Cardizem was weaned off. Patient's heart rate improved after increase metoprolol. Given history of fall at home he was seen by physical therapy and was found to be orthostatic on examination. Given concerns for mild dehydration on admission he was given IV fluids. After IV hydration patient did convert to normal sinus rhythm and has maintained a normal sinus rhythm over the last 24 hours. Her blood pressures have improved with improvement in her dizziness. He has been discharged in hemodynamically stable condition on increased dose of metoprolol. Home dose of hydrochlorothiazide has been continued. Hydroxyzine has been changed to as needed as citalopram has been continued at 10 mg/day. He is advised to not increase citalopram further because of side effects of orthostatic hypotension. Physical Exam Narrative: General: No acute distress, AO x3 HEENT: PERRLA, pupils bilaterally equal and reactive Chest: Normal vesicular breath sounds, no added sounds, equal good air entry bilaterally CVS: S1-S2 irregularly irregular, pansystolic murmur at apex radiating to anterior axillary line, no tachycardia, no gallops, no rubs Abdomen: Soft, nontender, no organomegaly, bowel sounds present Neuro: No focal deficits, no facial deformity, AO x3, power 5/5 in all limbs Discharge Data Studies Completed and Pending Completed Studies During Hospitalization Category Date Time Status CT head thrombolytic [id number] Stat Cat Scan 09/27/24 16:31 Completed XR chest 1V portable [id number] Stat Exams 09/27/24 14:33 Completed CV. echo complete* [id number] Routine Ultrasound 09/27/24 18:27 Completed Radiology Impressions Chest X-Ray 09/27/24 14:33 IMPRESSION: 1. No acute cardiopulmonary abnormality. Head CT 09/27/24 16:31 IMPRESSION: 1. No acute intracranial abnormality. ASSESSMENT: ASPECTS (Nella Stroke Program Early CT Score) is 10. Laboratory Results WBC 4.92 10^3/uL (3.29-11.43) 09/29/24 03:06 RBC 3.69 10^6/uL (3.85-5.65) L 09/29/24 03:06 Hgb 12.60 g/dL (11.27-16.99) 09/29/24 03:06 Hct 37.3 % (37-53) 09/29/24 03:06 MCV 101.1 fl (82-101) H 09/29/24 03:06 MCH 34.1 pg (27-33) H 09/29/24 03:06 MCHC 33.8 g/dL (30-55) 09/29/24 03:06 RDW 12.0 % (12.1-15.1) L 09/29/24 03:06 Plt Count 178 10^3/cmm (157-399) 09/29/24 03:06 MPV 11.3 fL (7.4-10.4) H 09/29/24 03:06 Neut % (Auto) 55.1 % 09/29/24 03:06 Lymph % (Auto) 30.9 % 09/29/24 03:06 [place] % (Auto) 9.3 % 09/29/24 03:06 Eos % (Auto) 3.7 % 09/29/24 03:06 Baso % (Auto) 0.8 % 09/29/24 03:06 Neut # (Auto) 2.71 10^3/uL (1.8-7.7) 09/29/24 03:06 Lymph # (Auto) 1.5 10^3/uL (0.8-4.8) 09/29/24 03:06 [place] # (Auto) 0.5 10^3/uL (0.2-0.9) 09/29/24 03:06 Eos # (Auto) 0.2 10^3/uL (0.0-0.8) 09/29/24 03:06 Baso # (Auto) 0.0 10^3/uL (0.0-0.1) 09/29/24 03:06 Nucleated RBC % (auto) 0 % 09/29/24 03:06 Nucleated RBCs # 0.0 /100WBC 09/29/24 03:06 PT 12.30 SECONDS (12.1-14.9) 09/27/24 13:58 INR 0.89 (0.8-1.2) 09/27/24 13:58 APTT 43.7 SECONDS (23.9-36.7) H 09/27/24 13:58 D-Dimer 3.47 ug/mLFEU (0-0.59) H 09/27/24 13:58 Sodium 141 mmol/L (136-145) 09/29/24 03:06 Potassium 3.9 mmol/L (3.5-5.1) 09/29/24 03:06 Chloride 105 mmol/L (98-107) 09/29/24 03:06 Carbon Dioxide 28 mmol/L (22-29) 09/29/24 03:06 Anion Gap 11.9 (5-19) 09/29/24 03:06 BUN 24 mg/dL (8-23) H 09/29/24 03:06 Creatinine 1.3 mg/dL (0.7-1.2) H 09/29/24 03:06 GFR Calculation Not Reportable 09/29/24 03:06 Glucose 101 mg/dL (65-115) 09/29/24 03:06 Estimat Average Glucose 100 09/28/24 02:29 Hemoglobin A1c 5.1 % (4.0-6.0) 09/28/24 02:29 Calculated Osmolality 296 mOsm/kg (285-295) H 09/29/24 03:06 Calcium 8.4 mg/dL (8.5-10.5) L 09/29/24 03:06 Phosphorus 3.2 mg/dL (2.5-4.5) 09/28/24 02:29 Magnesium 1.7 mg/dL (1.7-2.3) 09/28/24 02:29 Iron 26 ug/dL (59-158) L 09/27/24 17:01 TIBC 184 mcg/dl 09/27/24 17:01 % Saturation 14.1 % (20-50) L 09/27/24 17:01 Unsat Iron Binding 158 ug/dL (112-347) 09/27/24 17:01 Total Bilirubin 0.5 mg/dL (0.15-1.2) 09/29/24 03:06 AST 23 U/L (0-40) 09/29/24 03:06 ALT 13 U/L (0-41) 09/29/24 03:06 Alkaline Phosphatase 124 U/L (40-130) 09/29/24 03:06 Total Protein 6.0 g/dL (6.6-8.7) L 09/29/24 03:06 Albumin 3.2 g/dL (3.5-5.2) L 09/29/24 03:06 Globulin 2.8 g/dL (1.3-4.6) 09/29/24 03:06 Triglycerides 108 mg/dL (0-150) 09/28/24 02:29 Cholesterol 132 mg/dL (0-200) 09/28/24 02:29 LDL Cholesterol, Calc 68 mg/dL (50-129) 09/28/24 02:29 HDL Cholesterol 42 mg/dL (60-100) L 09/28/24 02:29 LDL/HDL Ratio 1.62 RATIO (0.00-3.22) 09/28/24 02:29 Cholesterol/HDL Ratio 3.14 mg/dL (1.0-5.00) 09/28/24 02:29 Vitamin B12 849 pg/mL (232-1245) 09/27/24 17:01 Folate 15.2 ng/mL (4.5-32.2) 09/28/24 02:29 Procalcitonin 0.06 ng/mL (0-0.5) 09/28/24 02:29 TSH 2.07 uIU/mL (0.27-4.20) 09/27/24 13:58 Urine Color Yellow (Yellow) 09/28/24 08:20 Urine Appearance Clear (CLEAR) 09/28/24 08:20 Urine pH 6.5 (5-7) 09/28/24 08:20 Ur Specific [place] 1.016 (1.005-1.030) 09/28/24 08:20 Urine Protein Negative (Negative) 09/28/24 08:20 Urine Glucose (UA) Negative (Normal) 09/28/24 08:20 Urine Ketones Negative (Negative) 09/28/24 08:20 Urine Blood Negative (Negative) 09/28/24 08:20 Urine Nitrate Negative (Negative) 09/28/24 08:20 Urine Bilirubin Negative (Negative) 09/28/24 08:20 Urine Urobilinogen 1.0 mg/dL (Negative) 09/28/24 08:20 Ur Leukocyte Esterase Negative (Negative) 09/28/24 08:20 Urine RBC 6-10 /hpf (0-2) 09/28/24 08:20 Urine WBC 0-5 /hpf (0-5) 09/28/24 08:20 Ur Squamous Epith Cells 0-5 /hpf (0-5) 09/28/24 08:20 Amorphous Sediment Not Reportable 09/28/24 08:20 Urine Bacteria None seen /hpf (NONE) 09/28/24 08:20 Hyaline Casts 0-4 /lpf H 09/28/24 08:20 Urine Opiates Screen Negative ng/mL (Negative) 09/28/24 08:20 Ur Barbiturates Screen Negative ng/mL (Negative) 09/28/24 08:20 Ur Phencyclidine Scrn Negative ng/mL (Negative) 09/28/24 08:20 Ur Amphetamines Screen Negative ng/mL (Negative) 09/28/24 08:20 U Benzodiazepines Scrn Negative ng/mL (Negative) 09/28/24 08:20 Urine Cocaine Screen Negative ng/mL (Negative) 09/28/24 08:20 U Marijuana (THC) Screen Negative ng/mL (Negative) 09/28/24 08:20 Vitals Last Vital Signs Temp 98.0 F 09/29/24 08:00 Pulse 75 09/29/24 08:00 Resp 20 H 09/29/24 08:00 BP 155/86 09/29/24 08:00 Pulse Ox 96 09/29/24 08:00 O2 Del Method Room Air 09/29/24 08:00 Discharge Plan Discharge Patient Disposition: Home Condition: Stable Prescriptions: Continued tramadol 100 mg tablet 100 mg PO BID PRN (Reason: pain) citalopram 20 mg tablet 10 mg PO DAILY hydrochlorothiazide 25 mg tablet 25 mg PO DAILY ezetimibe 10 mg tablet 10 mg PO DAILY (DME) custom thermoplastic night splint See Rx Instructions .Route .MEDSUPPLY Qty: 1 0RF Rx Instructions: As directed (DME) NIGHT SPLINT LEFT See Rx Instructions .Route .MEDSUPPLY Qty: 1 0RF Rx Instructions: As directed tamsulosin [Flomax] 0.4 mg Capsule 0.4 mg PO BEDTIME Rx Instructions: 0.4 mg orally Changed metoprolol tartrate 50 mg tablet 50 mg PO BID Qty: 60 0RF hydroxyzine HCl 10 mg tablet 10 mg PO BEDTIME PRN (Reason: anxiety) Qty: 7 0RF Discontinued gabapentin 100 mg capsule 200 mg PO BEDTIME Discharge Orders: Discharge Order (Routine); Ordered 09/29/24 Ordered By: Jann Stone Other Ambulatory Orders: DME: Kal (Order) Location: None Selected Ordered By: Jann Stone Referrals: Vincent Cedeño NP [Primary Care Provider] - 10/06/24 10:20 am (Patient will be seeing Dr. Levin, his provider is no longer at this location.) Discharge Diet: Cardiac Discharge Activity: Resume usual activity Patient Instructions: A-fib (Atrial Fibrillation) (DC), Mitral Regurgitation (DC), Chronic Hypertension (DC), Fall Prevention (DC), Opioid Safety Activity Restrictions/Additional Instructions: Check your blood pressure daily at home maintain a blood pressure diary. Follow-up with a primary care provider within next 1 week for further adjustment of antihypertensive as needed. Goal blood pressures less than 140/90 mmHg. Dose of metoprolol has been increased to 50 mg twice daily. Do not take hydroxyzine every night. Only take it as needed. Hydroxyzine can cause you to have dizziness. Discharge Attestations Time Spent in Discharge Care*: greater than 30 min Specific Discharge Activities: educating patient, discussing with pcp/other providers, discussing with family preservation caseworker/social workers/dc planners, documenting/other paperwork and evaluating patient/reviewing data Status at Discharge: Cognitive status at discharge: cognitively intact , Behavioral status at discharge: cooperative , Functional status at discharge: uses cane/walker , Overall status at discharge: patient is back to baseline Quality Metrics Clinical Quality Measures [ No reported AMI, CVA or VTE this stay] Coding Level of Care Code 64825 Total time (in minutes) for Discharge: 60 Diagnoses Atrial fibrillation with RVR I48.91 Orthostatic hypotension I95.1 Fall W19.XXXA Unsteadiness on feet R26.81 Benign hypertension I10 Hyperlipidemia E78.5 Moderate mitral regurgitation I34.0
[2024-09-29] MEDS: metoprolol tartrate 50 mg Tablet PO (09:27)
[2024-09-29] MEDS: citalopram 20 mg Tablet 10 MG PO (09:27)
[2024-09-29] MEDS: ferrous sulfate EC 325 mg Tablet PO (09:28)
[2024-09-29] MEDS: pantoprazole DR 40 mg Tablet PO (09:28)
[2024-09-29] MEDS: ezetimibe 10 mg Tablet PO (09:28)
[2024-09-29 11:18] VITALS: BP 166/90; PULSE 77; RESP 20; O2SAT 97
[2024-09-29 11:21] VITALS: BP 142/84; PULSE 78; RESP 22; TEMP 36.6; O2SAT 99
--- NOTE | 2024-09-29 11:59 | PC.NURSE ---
discharge instructions given and explained.pt verb understanding of instructions.states he does have a bp machine at home to monitor blood pressures.discharged via w/c to exit at this time.va to drive pt home.
== END 2024-09-29 12:00 | disposition home or self-care (01) | DRG 310 ==
LOC: ER 15:54 → CSU 16:49
PROVIDERS: Admitting Provider Student in an Organized Health Care Education/Training Program; Emergency Provider Family Medicine; PCP Clinical Nurse Specialist Adult Health; Visit Provider Student in an Organized Health Care Education/Training Program
DX: I48.91 Unspecified atrial fibrillation (principal); I10 Essential (primary) hypertension; N40.0 Benign prostatic hyperplasia without lower urinary tract symptoms; E78.00 Pure hypercholesterolemia, unspecified; M72.0 Palmar fascial fibromatosis [Dupuytren]; M19.042 Primary osteoarthritis, left hand; M19.041 Primary osteoarthritis, right hand; Z96.653 Presence of artificial knee joint, bilateral; I34.0 Nonrheumatic mitral (valve) insufficiency; R29.6 Repeated falls; I95.1 Orthostatic hypotension; E86.0 Dehydration; R26.81 Unsteadiness on feet; Z79.82 Long term (current) use of aspirin; Z87.442 Personal history of urinary calculi; Z90.49 Acquired absence of other specified parts of digestive tract; Z83.3 Family history of diabetes mellitus; Z82.3 Family history of stroke; Z82.49 Family history of ischemic heart disease and other diseases of the circulatory system
CPT/HCPCS: 36415; 70450; 71045; 80053; 80061; 80306; 81001; 82607; 82746; 83036; 83540; 83550; 83735; 84100; 84145; 84443; 85025; 85378; 85610; 85730; 93005; 93306; 96365; 96366; 96372; 96375; 97110; 97116; 97161; 99285; A9270; J1650; J3490; J7030

== ENCOUNTER 2024-11-19 19:58 | Emergency (ER) | payer OTHER, MEDICARE, SELFPAY ==
[2024-11-19 19:59] VITALS: BP 117/78; PULSE 94; RESP 24; TEMP 36.6; O2SAT 99; BMI 21.3
--- NOTE | 2024-11-19 20:15 | XRR_ITS ---
PROCEDURE INFORMATION: Exam: XR Chest Exam date and time: 11/19/2024 9:16 PM Age: 84 years old Clinical indication: Shortness of breath; Patient HX: C/O SOB TECHNIQUE: Imaging protocol: Radiologic exam of the chest. Views: 1 view. COMPARISON: CR XR chest 1V portable [id number] 09/27/2024 2:39 PM FINDINGS: Lungs: Patchy right perihilar opacities. Pleural spaces: No pleural effusion. No pneumothorax. Heart/Mediastinum: No cardiomegaly. Bones/joints: Severe bilateral shoulder degenerative joint disease. XR/XR chest 1V portable [id number] IMPRESSION: 1. Patchy right perihilar opacities concerning for developing pneumonia. 2. Recommend follow-up imaging to ensure resolution.
[2024-11-19 21:08] LABS: Covid PCR NEGATIVE (Negative); Influenza A NEGATIVE (Negative); Influenza B NEGATIVE (Negative)
[2024-11-19 21:58] LABS: Respiratory Syncytial Virus Ce POSITIVE (Negative)
--- NOTE | 2024-11-19 23:07 | W.ED.SOB ---
HPI - SOB/Dyspnea General: Chief Complaint: Shortness of Breath/Dyspnea Stated Complaint: Cant breath confused cough Time Seen by Provider: 11/19/24 21:44 History of Present Illness: HPI Narrative: Sumeet Peres is an 84-year-old man that presents to the emergency department with complaints of cough, congestion, fatigue, chills. Onset of symptoms 3 days ago. Patient is accompanied by 2 of his best friends. He lives alone and has no other family close by. At the time of our evaluation he is alert and oriented x 3. He is in no acute distress. Patient has a medical history that includes hypertension, BPH. Associated symptoms: Reports chest congestion and fever(s); Deny abdominal pain, chest pain, dizziness, extremity pain, nausea, orthopnea, palpitations, polydipsia, polyuria or vomiting Related Data Home Medications Medication Instructions Recorded Confirmed citalopram 20 mg tablet 10 mg PO DAILY 12/06/19 10/06/24 hydrochlorothiazide 25 mg tablet 25 mg PO DAILY 12/06/19 10/06/24 tamsulosin 0.4 mg capsule (Flomax) 0.4 mg PO BEDTIME 07/17/20 10/06/24 tramadol 100 mg tablet 100 mg PO BID PRN pain 08/29/21 10/06/24 ezetimibe 10 mg tablet 10 mg PO DAILY 06/29/24 10/06/24 Previous Rx's Medication Instructions Recorded custom thermoplastic night splint #1 ea 05/21/23 NIGHT SPLINT LEFT #1 ea 08/28/23 hydroxyzine HCl 10 mg tablet 10 mg PO BEDTIME PRN anxiety #7 09/29/24 tabs metoprolol tartrate 50 mg tablet 50 mg PO BID #60 tabs 09/29/24 aspirin 325 mg tablet 325 mg PO DAILY #30 tabs 10/06/24 Allergies Allergy/AdvReac Type Severity Reaction Status Date / Time gabapentin Allergy Intermediate ADR-Confusi Verified 11/19/24 20:12 on amlodipine Allergy ADV-Weaknes Verified 11/19/24 20:12 s Review of Systems General: Reports: 10 or more systems reviewed and unremarkable except in HPI and below Const: Reports: fever(s), chills, body aches, change in appetite, fatigue and malaise; Denies: change in weight Eyes: Denies: change in vision, eye discomfort, eye discharge or eye redness ENMT: Denies: throat pain, enlarged tonsils, odynophagia, hoarseness, ear or mastoid pain, ear discharge, change in hearing, tinnitus, nasal discharge, nasal congestion, post nasal drip or sinus pain Card: Denies: chest pain, palpitations, irregular heart rhythm, edema, dyspnea on exertion, orthopnea or leg pain with exertion Resp: Reports: dyspnea, productive cough and chest congestion; Denies: non-productive cough, wheezing or stridor GI: Denies: abdominal pain, nausea, vomiting, dysphagia, diarrhea, constipation, bloating, GI cramping or hematochezia : Denies: flank pain, dysuria, urinary frequency, urinary urgency, urinary hesitancy, oliguria or hematuria Musc: Denies: neck pain, back pain, extremity pain, joint pain, joint swelling, joint redness, joint warmth or muscle weakness Skin/Breast: Denies: rash, pruritus, erythema, photosensitivity or new lesions Neuro: Reports: headache(s); Denies: numbness in extremities, weakness in extremities, sensory changes, lack of coordination, difficulty walking, frequent falls, dizziness, confusion, Slurred speech present, difficulty communicating thoughts, seizure-like activity or involuntary movements Endo: Denies: polyuria, polydipsia or tired all the time Jalen/Lymph: Denies: easy bruising or easy bleeding PFSH ED PFSH: Medical History Hyperlipidemia Benign hypertension Pigmented skin lesion of uncertain behavior of torso Dupuytren's contracture of both hands Osteoarthritis of hands, bilateral Hypertension Gastritis High cholesterol Calculus of kidney Gastric erosions Surgical History Hx of appendectomy Hx of cholecystectomy Hx of craniotomy History of bilateral knee replacement History of total left knee replacement Status post left knee replacement Family History Mother Diabetes Father Stroke Cancer Hypertension Social History Smoking and tobacco/nicotine status: unknown if used tobacco/nicotine Alcohol intake: never Substance/Drug Use: never Physical Exam Const: COMMON NORMALS: no acute distress, patient oriented x3 and alert GENERAL APPEARANCE: cooperative ORIENTATION/CONSCIOUSNESS: Yes awake, Yes oriented to person, Yes oriented to place and Yes oriented to time HENMT: COMMON NORMALS: normocephalic and atraumatic HEAD & SCALP: normocephalic and atraumatic FACE & SINUS: normal facial exam MOUTH: Normal oral and palatal mucosa present THROAT: posterior oropharynx normal Eye: COMMON NORMALS: Equal, round and reactive pupils present, EOMs intact bilaterally, conjunctivae normal and no scleral icterus GENERAL EYE: appearance normal, both eyes and all related structures ALIGNMENT: Yes alignment normal PERIORBITAL: periorbital findings normal CONJUNCTIVA: Yes conjunctivae normal PUPIL: Yes Equal, round and reactive pupils present Neck/C-Spine: COMMON NORMALS: full ROM GENERAL: Yes normal visual inspection Lymph: LYMPHATIC: no lymphadenopathy noted Chest: COMMONS NORMALS: normal inspection of the chest Breast/axilla inspection: Yes no chest deformity, asymmetry, normal contours, no nodules, masses, tenderness Resp: COMMON NORMALS: normal respiratory effort, No retractions, No use of accessory muscles and clear to auscultation bilaterally EFFORT & INSPECTION: Yes able to speak in complete sentences and Yes symmetric chest movement AUSCULTATION: clear to auscultation bilaterally Cardio: COMMON NORMALS: regular rate, regular rhythm and Peripheral pulses 2+ throughout RATE: regular rate RHYTHM: regular rhythm PERIPHERAL PULSES: Peripheral pulses 2+ throughout GI: COMMON NORMALS: Normal to inspection, nondistended, normoactive bowel sounds present, Soft to palpation, non-tender and No hepatosplenomegaly present INSPECTION: Yes normal to inspection AUSCULTATION: Yes normoactive bowel sounds PALPATION: Yes Soft to palpation and Yes No hepatosplenomegaly present RECTAL EXAM: Yes deferred Extremity: COMMON NORMALS: normal to inspection GENERAL: Yes normal exam except as noted Neuro: COMMON NORMALS: patient oriented x3 SENSORIUM/ORIENTATION: Yes alert, Yes oriented to person, Yes oriented to place and Yes oriented to time CRANIAL NERVES: Yes CN normal except as noted Psych: COMMON NORMALS: mental status grossly normal, Normal thought process present, cooperative, activity/motor behavior normal, denies homicidal ideation and denies suicidal ideation THOUGHT PROCESS: Normal thought process present Skin: COMMON NORMALS: no rashes or lesions noted, no wounds and turgor normal GENERAL SKIN EXAM: no rashes or lesions noted and turgor normal Course Vital Signs: Vital signs: Vital Signs Temperature 97.8 F 11/19/24 19:59 Pulse Rate 94 11/19/24 19:59 Respiratory Rate 24 H 11/19/24 19:59 Blood Pressure 117/78 11/19/24 19:59 Pulse Oximetry 99 11/19/24 19:59 Oxygen Delivery Me thod Room Air 11/19/24 19:59 MDM - SOB/Dyspnea Medical Decision Making Patient presents to the emergency department with cough, congestion fever and chills. No documented fever but reports he is chilling. Patient is not hypoxic, tachycardic and is normotensive. He underwent COVID influenza and RSV testing which shows positive for RSV. He had a chest x-ray performed which is stable to prior x-rays. I reviewed the case with Dr. Cervantes. This time no further diagnostics are warranted. Talked with his caretakers/friends, they are going to monitor him closely. Check on him several times a day. Unfortunately we do not have a pulse oximeter that we can send home with him. They will need to pick 1 up at [facility] or [facility] tomorrow. I am going to have the patient follow-up with his primary care doctor on Thursday. He needs to be rechecked. I also reviewed symptoms that would be concerning and he would need to return for. All are in agreement and all questions were answered Lab Data Labs/Radiology: Laboratory Results Coronavirus (PCR) Negative (Negative) 11/19/24 20:16 Influenza A (PCR) Negative (Negative) 11/19/24 20:16 Influenza Type B (PCR) Negative (Negative) 11/19/24 20:16 RSV (PCR) Positive (Negative) A 11/19/24 20:16 XR interpretation done by ED provider, pending radiology final review Discharge Plan Discharge Patient Disposition: Home Clinical Impression: Respiratory syncytial virus (RSV) Condition: Stable Prescriptions: No Action tramadol 100 mg tablet 100 mg PO BID PRN (Reason: pain) citalopram 20 mg tablet 10 mg PO DAILY hydrochlorothiazide 25 mg tablet 25 mg PO DAILY ezetimibe 10 mg tablet 10 mg PO DAILY aspirin 325 mg tablet 325 mg PO DAILY Qty: 30 11RF (DME) custom thermoplastic night splint See Rx Instructions .Route .MEDSUPPLY Qty: 1 0RF Rx Instructions: As directed (DME) NIGHT SPLINT LEFT See Rx Instructions .Route .MEDSUPPLY Qty: 1 0RF Rx Instructions: As directed tamsulosin [Flomax] 0.4 mg Capsule 0.4 mg PO BEDTIME Rx Instructions: 0.4 mg orally metoprolol tartrate 50 mg tablet 50 mg PO BID Qty: 60 0RF hydroxyzine HCl 10 mg tablet 10 mg PO BEDTIME PRN (Reason: anxiety) Qty: 7 0RF Discharge Orders: Discharge ED (Routine); Ordered 11/19/24 Ordered By: Santiago Paredes Referrals: Vincent Cedeño, WET CLEANER MACHINE [Primary Care Provider] - Discharge Diet: Advance as tolerated Discharge Activity: Resume usual activity Patient Instructions: Pain Management, Respiratory Syncytial Virus (RSV), RSV (Respiratory Syncytial Virus) Infection (ED) Activity Restrictions/Additional Instructions: Please monitor symptoms closely. Her friends are going to check on you a couple times a day. If you feel that you are having a more difficult time breathing, you need to be reevaluated. I want you to call your primary care doctor on Thursday because I would like you to be reevaluated by your primary care doctor this coming week. Make sure you are getting plenty of fluids and I want you to walk around the house several times a day. If you are concerned about your symptoms or feel you are worsening, you need to be reevaluated in the emergency department. There is a low threshold for you to be reevaluated. Unfortunately we are unable to provide you with a pulse oximeter. This is a device that measures your oxygen and the blood. You will need to pick 1 up at [facility] or [facility] tomorrow. Coding Level of Care Code ED Convention Services Manager for Gladys Hernandez
[2024-11-19 23:28] VITALS: BP 123/81; PULSE 78; RESP 18; O2SAT 98
== END 2024-11-19 23:29 | disposition home or self-care (01) ==
PROVIDERS: Emergency Medicine; Emergency Provider Nurse Practitioner; PCP Clinical Nurse Specialist Adult Health
DX: R05.9 Cough, unspecified (principal); B97.4 Respiratory syncytial virus as the cause of diseases classified elsewhere
CPT/HCPCS: 71045; 87637; 99284

== ENCOUNTER → 2024-12-14 11:19 | Outpatient (BNVA) | payer OTHER, SELFPAY | PROVIDERS: PCP Clinical Nurse Specialist Adult Health; Visit Provider Nurse Practitioner Family | DX: L21.8 Other seborrheic dermatitis (principal); L57.8 Other skin changes due to chronic exposure to nonionizing radiation; L81.4 Other melanin hyperpigmentation; L82.0 Inflamed seborrheic keratosis; L57.0 Actinic keratosis | CPT/HCPCS: 17000; 17110; 99213 ==

== ENCOUNTER → 2025-02-15 12:08 | Outpatient (BNVA) | payer OTHER, SELFPAY | PROVIDERS: PCP Family Medicine; Visit Provider Nurse Practitioner Family | DX: L40.8 Other psoriasis (principal); L57.8 Other skin changes due to chronic exposure to nonionizing radiation; L81.4 Other melanin hyperpigmentation; L57.0 Actinic keratosis | CPT/HCPCS: 17000; 99214 ==

== ENCOUNTER 2025-05-10 14:42 | Emergency (ER) | payer OTHER, MEDICARE, SELFPAY ==
--- OUTSIDE RECORDS SUMMARY | 2024-09-27 08:00 | XMS_ITS | Encounter Summary ---
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 This section includes the names of all active insurance providers for the patient. Insurance Provider Type of Coverage Plan Name Start of Policy Coverage End of Policy Coverage Group Number Member ID Insurance Provider's Telephone Number Policy Nolasco's Name Patient's Relationship to Policy Nolasco MEDICARE (WNR) MEDICARE (M) PART A Jan 14, 2005 PART A [id number] [id number] WANG PEREZ PATIENT MEDICARE (WNR) MEDICARE (M) PART B Jan 14, 2005 PART B [id number] WANG PEREZ PATIENT MEDICARE (WNR) MEDICARE (M) PART A Jan 14, 2005 PART A [id number] WANG PEREZ PATIENT MEDICARE (WNR) MEDICARE (M) PART B Jan 14, 2005 PART B [id number] WANG PEREZ PATIENT MEDICARE (WNR) MEDICARE (M) PART A Jan 14, 2005 PART A [id number] [phone] WANG PEREZ PATIENT MEDICARE (WNR) MEDICARE (M) PART B Jan 14, 2005 PART B [id number] [phone] WANG PEREZ PATIENT MEDICARE (WNR) MEDICARE (M) PART A Jan 14, 2005 PART A [id number] WANG PEREZ PATIENT MEDICARE (WNR) MEDICARE (M) PART B Jan 14, 2005 PART B [id number] [phone] WANG PEREZ PATIENT Selected Encounter This section includes the information on record at [place] for the Encounter. Date/Time Encounter Type Encounter Description Reason Provider Source Sep 27, 2024 01:00 PM OFFICE O/P EST MOD 30 MIN PRIMARY CARE/MEDICINE ICD-10-CM I48.20 Chronic atrial fibrillation, unspecified SOURAV,MARY ANN IHE Encounter Template Text not used by [facility] Assessments - Encounter Diagnoses This section includes the primary and secondary diagnoses documented for the Encounter. Date/Time Primary/Secondary Diagnosis Diagnosis Name Provider Source Sep 27, 2024 01:57 PM PRIMARY Chronic atrial fibrillation, unspecified SOURAV,MARY ANN [facility] Sep 27, 2024 01:57 PM SECONDARY Anemia, unspecified SOURAV,MARY ANN [facility] Sep 27, 2024 01:57 PM SECONDARY Anxiety disorder, unspecified SOURAV,MARY ANN [facility] Sep 27, 2024 01:57 PM SECONDARY Benign prostatic hyperplasia without lower urinry tract symp SOURAV,MARY ANN [facility] Sep 27, 2024 01:57 PM SECONDARY Essential (primary) hypertension SOURAV,MARY ANN [facility] Sep 27, 2024 01:57 PM SECONDARY Gastro-esophageal reflux disease without esophagitis SOURAV,MARY ANN [facility] Sep 27, 2024 01:57 PM SECONDARY Hyperlipidemia, unspecified SOURAV,MARY ANN [facility] Sep 27, 2024 01:57 PM SECONDARY Low back pain, unspecified SOURAV,MARY ANN [facility] Sep 27, 2024 01:57 PM SECONDARY Post-traumatic stress disorder, unspecified SOURAV,MARY ANN [facility] Sep 27, 2024 01:57 PM SECONDARY Seborrheic dermatitis, unspecified SOURAV,MARY ANN [facility] Sep 27, 2024 01:57 PM SECONDARY Unspecified hearing loss, unspecified ear MARY ANN MANUEL [facility] Sep 27, 2024 01:57 PM SECONDARY Unspecified osteoarthritis, unspecified site MARY ANN MANUEL [facility] Sep 27, 2024 01:57 PM SECONDARY Vitamin D deficiency, unspecified SOURAV,TAMMY [facility] Plan of Treatment: Future Appointments (+ 6 months) and Future Tests (+/- 45 days) The Plan of Treatment section includes future care activities for the patient from [facility] [place] [facility] This section includes future appointments and future orders which are active, pending or scheduled. Future Appointments This section includes appointments that were scheduled to occur 6 months from the date of the Encounter, up to a maximum of 20 appointments. The data comes from all [place] treatment facilities. Appointment Date/Time Appointment Type Appointme nt Facility Name Oct 27, 2024 01:45 PM AMBULATORY - MEDICINE [facility] Nov 23, 2024 10:30 AM AMBULATORY - MEDICINE [facility] Active, Pending, and Scheduled Orders This section includes a listing of several types of active, pending, and scheduled orders, including clinic medications orders, diagnostic test orders, procedure orders and consult orders; where the start date of the order is 45 days before the date of the Encounter or 45 days after the date of theEncounter. The data comes from all [facility]. Test Date/Time Test Type Test Details Facility Name Sep 27, 2024 02:00 PM Consult Order [facility]ED[facility] [id number] Cons Suture Gauger's Choice [facility] Oct 05, 2024 12:00 AM Laboratory - Chemi stry Order CBC BLOOD SP [facility] Lab Results: +/- 30 days of the encounter This section includes the Chemistry and Hematology Lab Results on record with [place] for the patient. Radiology Reports and Pathology Reports are provided separately, in subsequent sections. Lab Results This section contains the Chemistry/Hematology Results that were resulted 30 days before or 30 daysafter the date of the Encounter. Date/Time Source Result Type Result - Unit Interpretation Reference Range Specimen Type Comment Sep 19, 2024 09:59 AM [facility] HGA1C BLOOD Specimen Type: BLOOD No comment entered. Ordering Provider: MARY ANN MANUEL Report Released Date/Time: Oct 05, 2023 03:43 PM Reporting Lab: [place] [facility] [address] [place] [address] Performing Lab: [place] [facility] [address] [place] [address] HGA1C 5.6 4.0-6.0 Sep 19, 2024 09:59 AM [facility] CHOLESTEROL PANEL (PB) PLASMA Specimen Type: P LASMA No comment entered. Ordering Provider: MARY ANN MANUEL Report Released Date/Time: Oct 05, 2023 03:43 PM Reporting Lab: [place] [facility] [address] [place] [address] Performing Lab: [place] [facility] [address] [place] [address] CHOLESTEROL 187 mg/dL 0-200 TRIGLYCERIDE 127 mg/dL 0-150 CALCULATED LDL 117.1 mg/dL HDL(New) 44.5 mg/dL H >40 HDL % OF TOTAL CHOLESTEROL (PB) 23.8 >25 Sep 19, 2024 09:59 AM [facility] TSH (MA-PB) SERUM Specimen Typ e: SERUM No comment entered. Ordering Provider: MARY ANN MANUEL Report Released Date/Time: Oct 05, 2023 03:43 PM Reporting Lab: [place] [facility] [address] [place] [address] Performing Lab: [place] [facility] [address] [place] [address] TSH 3.126 u[IU]/mL 0.47-5 Sep 19, 2024 09:59 AM [facility] COMPREHENSIVE METABOLIC PANEL PLASMA Specimen Type: PLASMA No comment entered. Ordering Provider: MARY ANN MANUEL Report Released Date/Time: Oct 05, 2023 03:43 PM Reporting Lab: [place] [facility] [address] [place] [address] Performing Lab: [place] [facility] [address] [place] [address] CREATININE 1.22 mg/dL 0.7-1.3 UREA NITROGEN 14 mg/dL 9-25 GLUCOSE 97 mg/dL 72-99 SODIUM 138 meq/L 136-145 POTASSIUM 4.3 meq/L 3.5-5 CHLORIDE 103 meq/L 98-107 CARBON DIOXIDE 25 meq/L 22-31 CALCIUM 9.3 mg/dL 8.4-10.4 PROTEIN 7.4 g/dL 6-8.6 ALBUMIN 4.2 g/dL 3.4-5 TOTAL BILIRUBIN 1.5 mg/dL H 0.2-1.2 ALKALINE PHOSPHATASE 126 U/L 40-150 AST/SGOT 22 U/L 5-34 ALT/SGPT 17 U/L 8-40 EGFR (CKD-EPI 2020) 58 Sep 19, 2024 09:59 AM [facility] IRON PLASM A Specimen Type: PLASMA No comment entered. Ordering Provider: MARY ANN MANUEL Report Released Date/Time: Aug 16, 2024 01:08 PM Reporting Lab: [place] [facility] [address] [place] [address] Performing Lab: [place] [facility] [address] [facility] [facility] [address] IRON 103 ug/dL 65-175 Sep 19, 2024 09:59 AM [facility] DRUG SCREEN URINE-inhouse (PB) URINE Specimen Type: URINE No comment entered. Ordering Provider: MARY ANN MANUEL Report Released Date/Time: Sep 15, 2024 03:14 PM Reporting Lab: [place] [facility] [address] [place] [address] Performing Lab: [place] [facility] [address] [place] [address] OPIATES (PB) Negative Negative COCAINE... Negative Negative THC(Marijuana... Negative Negative PCP...(Phencyclidine) Negative Negative BENZODIAZEPINE (PB) Negative Negative BARBITURATES (PB) Negative Negative AMPHETAMINE... Negative Negative CREATININE URINE/OTHERS 31.39 mg/dL OXYCODONE ([id number]) Negative Negati ve ETHANOL URINE <10.0 mg/dL L 0-20 Vital Signs: All taken on the encounter date This section contains inpatient and outpatient Vital Signs collected on the date of the Encounter. Date/Time Temperature Pulse Blood Pressure Respiratory Rate SP02 Pain Height Weight Body Mass Index Source Sep 27, 2024 01:25 PM 98.0 113 124/84 19 96 10 72.0 168.0 23 [facility] Social History: Smoking Status (Most current) and Tobacco Use (All prior to encounter date) This section includes the most current, and the historical, smoking and tobacco- related health factors from the [place] facility where the Encounter took place. Current Smoking Status This section includes the most current smoking, or tobacco-related health factor, from the [place] facility where the Encounter took place. Date/Time Current Smoking Status Comment Facil ity Sep 27, 2024 01:00 PM VA-TOBACCO NEVER USED OTHER TYPE [facility] Tobacco Use History This section includes a history of the smoking, or tobacco-related health factors, that were collected on or before the date of the Encounter. The data comes from the [place] facility where the Encounter took place. Date/Time Smoking Status/Tobacco Use Comment F acility Sep 27, 2024 01:00 PM VA-TOBACCO USE FORMER CIGARETTES [facility] Oct 05, 2023 01:30 PM VA-TOBACCO FORMER USER [facility] Oct 05, 2023 01:30 PM VA-TOBACCO QUIT 15 YRS OR MORE [facility] Nov 22, 2018 01:26 PM VA-TOBACCO FORMER USER [facility] Nov 22, 2018 01:26 PM VA-TOBACCO QUIT 15 YRS OR MORE [facility] Dec 14, 2017 01:23 PM QUIT TOBACCO >7 YEARS AGO [facility] Sep 22, 2008 10:42 AM QUIT TOBACCO >7 YEARS AGO [facility] March 21, 2008 08:57 AM QUIT TOBACCO >7 YEARS AGO [facility] Jan 20, 2008 08:25 AM QUIT TOBACCO >7 YEARS AGO [facility] Encounter Notes: All associated encounter notes This section contains the clinical notes associated to the Encounter. Date/Time Encounter Note(s) Provider Source Sep 27, 2024 01:32 PM PRIMARY CARE PROGRESS NOTE: LOCAL TITLE: PRIMARY CARE CLINIC PROGRESS NOTE PB STANDARD TITLE: PRIMARY CARE PROGRESS NOTE DATE OF NOTE: SEP 27, 2024@13:32 ENTRY DATE: SEP 27, 2024@13:32:38 AUTHOR: MARY ANN MANUEL COSIGNER: URGENCY: STATUS: COMPLETED SUBJECTIVE: WANG PEREZ is a 84 years old MALE. HPI: Presents to the clinic today for a periodic health maintenance visit. Last seen February 10, 2024 for seborrheic dermatitis rash on his face. He reports his equilibrium has been off and has had multiple falls. He also reports increasing pain in bilateral shoulders now more so in the left than the right has seen Dr. Sawant in the past regarding his right shoulder. He does have adhesive capsulitis and is going through physical therapy for this he is also seeing rheumatology regarding this. MRI of his right shoulder 10/05/2023 showed extensive degenerative changes with possible rotator cuff injury Non-VA Primary Care Provider Dr. 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 [employer] JOB/DUTIES: [employer]SE[employer] STATIONS/DEPLOYMENTS: [place], [employer] MAJOR ACCIDENTS OR INJURIES WHILE ON ACTIVE DUTY: Rt. knee injury SURGICAL HX: left varicose veins x3 Rt. inguinal hernia x 2 elbow nerve bilateral relocated right hand tendon release appendectomy cholecystectomy Bilateral knee replacements craniotomy- hit in head by a horse Rt. RCT Problem List 1) HTN - Hypertension (SNOMED CT 15331239) 2) HLD - Hyperlipidemia (SNOMED CT 06479367) 3) Anxiety (SNOMED CT 40197058) 4) GERD - Gastro-esophageal reflux disease (SNOMED CT 439413965) 5) Chronic back pain 6) Benign prostatic hyperplasia 7) PTSD - Post-traumatic stress disorder 8) Anemia (SCT 071944493) 9) OA - Osteoarthritis ([facility] [id number]) 10) Vitamin D Deficiency ([facility] 6721277) 11) Hearing Loss ([facility] 35116744) 12) Seborrheic dermatitis Active Outpatient Medications (including Supplies): Active Outpatient Medications Status 1) CICLOPIROX 1% TOP SHAMPOO USE SHAMPOO TO AFFECTED ACTIVE AREA(S) 2-3 TIMES A WEEK. LEAVE ON SCALP FOR 5 MINUTES THEN RINSE. 2) CITALOPRAM HYDROBROMIDE 20MG TAB TAKE ONE-HALF TABLET ACTIVE BY MOUTH EVERY MORNING FOR ANXIETY 3) CLOBETASOL PROPIONATE 0.05% TOP SOLN APPLY TO SCALP ACTIVE TO AFFECTED AREA(S) TWICE DAILY NEEDED FOR FLAKEY ITCHY SCALP 4) FERROUS SULFATE 324MG EC TAB TAKE ONE TABLET BY MOUTH ACTIVE ONCE A DAY FOR IRON SUPPLEMENTATION 5) GABAPENTIN 100MG CAP TAKE TWO CAPSULES BY MOUTH AT ACTIVE BEDTIME FOR NERVE PAIN 6) HYDROCHLOROTHIAZIDE 25MG TAB TAKE ONE TABLET BY MOUTH ACTIVE ONCE A DAY FOR HIGH BLOOD PRESSURE 7) HYDROXYZINE HCL 10MG TAB TAKE ONE TABLET BY MOUTH AT ACTIVE BEDTIME FOR ANXIETY *MAY CAUSE DROWSINESS* 8) KETOCONAZOLE 2% CREAM APPLY SMALL AMOUNT TO AFFECTED ACTIVE AREA(S) THREE TIMES PER WEEK (EXTERNAL USE ONLY) 9) KETOCONAZOLE 2% SHAMPOO USE SHAMPOO TO AFFECTED ACTIVE AREA(S) ONCE A DAY FOR SEBORRHEIC DERMATITIS (EXTERNAL USE ONLY) (SHAKE WELL) 10) METOPROLOL TARTRATE 100MG TAB TAKE ONE-HALF TABLET BY ACTIVE MOUTH TWICE A DAY FOR HIGH BLOOD PRESSURE TAKE WITH OR IMMEDIATELY FOLLOWING FOOD. 11) PANTOPRAZOLE NA 40MG EC TAB TAKE ONE TABLET BY MOUTH ACTIVE EVERY MORNING BEFORE A MEAL FOR GASTROESOPHAGEAL REFLUX DISEASE TAKE 30 MINUTES BEFORE MEAL(S) 12) TAMSULOSIN HCL 0.4MG CAP TAKE TWO CAPSULES BY MOUTH ACTIVE EVERY EVENING FOR BENIGN PROSTATIC HYPERPLASIA APPROXIMATELY 30 MINUTES AFTER THE SAME MEAL EACH DAY 13) TRAMADOL HCL 50MG TAB TAKE 2 TABLETS BY MOUTH TWICE A ACTIVE DAY FOR PAIN Allergies: GABAPENTIN Review of Systems: as per HPI and Systemic: Denies fatigue, fever, chills, or weight loss CV: Denies chest pain, palpitations Pulmonary: Denies hemoptysis, Shortness of breath, dyspnea on exertion GI: Denies constipation, bloody stools, diarrhea, indigestion, or n/v Ext: Denies any swelling Neuro: Denies slurred speech or dizziness Skin: Denies abnormal lesions; denies any new rashes PSYCH: Denies SI/HI; denies nightmares OBJECTIVE: Vital Signs Temperature: 98.0 F [36.7 C] (09/27/2024 13:25) Respiratory Rate: 19 (09/27/2024 13:25) Pulse Rate: 113 (09/27/2024 13:25) Blood Pressure: 124/84 (09/27/2024 13:25) HT: 72.0 in [182.9 cm] (09/27/2024 13:25) WT: 168.0 lb [76.20 kg] (09/27/2024 13:25) BMI: 22.8 96% (09/27/2024 13:25) Physical Exam General: NAD noted, A&Ox3, pleasant, appears stated age HEENT: NCAT, TM's clear, nares and oropharynx clear Neck: Supple with normal active ROM, without any lymphadenopathy Heart: RRR, no murmur, clicks, or rub Resp: Lungs CTA bilaterally, respirations even and unlabored Ext: No clubbing, cyanosis, edema or obvious deformity Skin: Warm, pink, and dry, no rashes Neuro: Grossly intact Psych: Affect normal, answers questions appropriately throughout visit A/P: ASSESSMENT and PLAN Health Maintenance: Labs reviewed with patient and printout given to patient. Discussed preventative health to include diet and exercise as well as immunizations. New onset atrial fibrillation with RVR: ECG consistent with A-fib with RVR today with a ventricular rate of 121; patient is essentially asymptomatic however with his recurrent falls I am sending him over to the ER for treatment and will increase his metoprolol to a full 100 mg twice daily HTN - on HCZ 25mg and metoprolol Hyperlipidemia- on Zetia Anxiety- stable on Celera GERD - stable, no meds Benign prostatic hyperplasia- stable tamulosin PTSD - stable OA hands with dupuytrens contractures- stable Chronic back pain- stable on gabapentin; occ takes a flexeril Anemia- lab pending Vitamin D Deficiency- on supplement Hearing Loss- just received new hearing aids Adhesive capsulitis bilateral shoulder with marked decreae ROM/severe OA-will extend his orthopedic consult to Dr. Sawant who patient states wants to do a bilateral shoulder replacement Seborrheic dermatitis- stable Stable. Discussed medications with patient; med rec completed. Continue current regimen as prescribed by PCP and specialists. RTC as needed if developing any new or worsening symptoms. Please notify PACT with medication changes or for orders coordination as needed if seen by a specialist in the future. Will f/u with patient once updated labs / imaging / testing received; otherwise f/u as listed below. Follow-up: 12 months with fasting labs prior to appointment and/or as needed. Discussed with patient that in the event of community imaging / testing being ordered in the future, once the imaging / testing has been completed, please notify PACT of completion at outside facility if not called with results within 1 week by a [facility] PACT member; this is due to intermittent lapses in notification of imaging completion within [facility]. All questions answered; agrees to plan of care. Follow up as listed above, annually, and as needed. Keep all appointments. Medications Reconciled. See AVS given to . Time spent 30 minutes. /es/ Mary Ann Manuel MD [facility] Signed: 09/27/2024 13:58 MARY ANN MANUEL [facility] Sep 27, 2024 01:10 PM PRIMARY CARE NURSING NOTE: LOCAL TITLE: PRIMARY CARE NURSING PROGRESS NOTE (TEXT) NURSING P STANDARD TITLE: PRIMARY CARE NURSING NOTE DATE OF NOTE: SEP 27, 2024@13:10 ENTRY DATE: SEP 27, 2024@13:10:59 AUTHOR: [employer] EXP COSIGNER: URGENCY: STATUS: COMPLETED Established Patient WANG PEREZ IS A 84 YEAR OLD MALE BEING SEEN IN CLINIC SEP 27, 2024. REASON FOR VISIT: Roberta here for yearly health exam, c/o equilibrium off and multiple falls the past few weeks Are you receiving care any where other than the [facility]? No HEALTH AND SURGICAL HISTORY: Does patient report using home oxygen? No CURRENT ACTIVE MEDICATIONS FOR REVIEW: Allergies/ADRs (Tool #5) FACILITY ALLERGY/ADR -------- [place] [facility] NO KNOWN ALLERGIES [facility] GABAPENTIN Med. Reconciliation (Tool #1) INCLUDED IN THIS LIST: Alphabetical list of active outpatient prescriptions dispensed from this [place] (local) and dispensed from another [place] or [facility] facility (remote) as well as inpatient orders (local pending and active), local clinic medications, locally documented non-VA medications, and local prescriptions that have or been discontinued in the past 90 days. Non-VA Meds Last Documented On: Oct 05, 2023 NOTE The display of VA prescriptions dispensed from another [place] or [facility] facility (remote) is limited to active outpatient prescription entries matched to National Drug File at the originating site and may not include some items such as investigational drugs, compounds, etc. NOT INCLUDED IN THIS LIST: Medications self-entered by the patient into personal health records (i.e. [employer]) are NOT included in this list. Non-VA medications documented outside this [place], remote inpatient orders (regardless of status) and remote clinic medications are NOT included in this list. The patient and provider must always discuss medications the patient is taking, regardless of where the medication was dispensed or obtained. OUTPT CICLOPIROX 1% TOP SHAMPOO (Status = Active) USE SHAMPOO TO AFFECTED AREA(S) 2-3 TIMES A WEEK. LEAVE ON SCALP FOR 5 MINUTES THEN RINSE. Rx# [id number] Last Released: 09/21/24 Qty/Days Supply: 120/30 Rx Expiration Date: 09/14/25 Refills Remainin OUTPT CITALOPRAM HYDROBROMIDE 20MG TAB (Status = Active) TAKE ONE-HALF TABLET BY MOUTH EVERY MORNING FOR ANXIETY Rx# [id number] Last Released: 08/09/24 Qty/Days Supply: 45/90 Rx Expiration Date: 08/06/25 Refills Remainin Indication: FOR ANXIETY OUTPT CLOBETASOL PROPIONATE 0.05% TOP SOLN (Status = Active) APPLY TO SCALP TO AFFECTED AREA(S) TWICE DAILY NEEDED FOR FLAKEY ITCHY SCALP Rx# [id number] Last Released: 09/21/24 Qty/Days Supply: 50/90 Rx Expiration Date: 09/14/25 Refills Remainin OUTPT CYCLOBENZAPRINE HCL 10MG TAB (Status = ) TAKE ONE TABLET BY MOUTH TWICE A DAY FOR MUSCLE SPASM MAY CAUSE DROWSINESS. DO NOT DRINK ALCOHOL WHILE TAKING THIS MEDICATION. Rx# [id number] Last Released: 08/19/24 Qty/Days Supply: 60/30 Rx Expiration Date: 09/16/24 Refills Remainin Indication: FOR MUSCLE SPASM OUTPT FERROUS SULFATE 324MG EC TAB (Status = Active) TAKE ONE TABLET BY MOUTH ONCE A DAY FOR IRON SUPPLEMENTATION Rx# [id number] Last Released: 08/17/24 Qty/Days Supply: 100/90 Rx Expiration Date: 08/17/25 Refills Remainin Indication: FOR IRON SUPPLEMENTATION OUTPT GABAPENTIN 100MG CAP (Status = Active) TAKE TWO CAPSULES BY MOUTH AT BEDTIME FOR NERVE PAIN Rx# [id number] Last Released: 08/09/24 Qty/Days Supply: 180/ Rx Expiration Date: 11/03/24 Refills Remainin Indication: FOR NERVE PAIN OUTPT HYDROCHLOROTHIAZIDE 25MG TAB (Status = Active) TAKE ONE TABLET BY MOUTH ONCE A DAY FOR HIGH BLOOD PRESSURE Rx# [id number] Last Released: 08/17/24 Qty/Days Supply: 90 Rx Expiration Date: 08/17/25 Refills Remainin Indication: FOR HIGH BLOOD PRESSURE OUTPT HYDROXYZINE HCL 10MG TAB (Status = Active) TAKE ONE TABLET BY MOUTH AT BEDTIME FOR ANXIETY *MAY CAUSE DROWSINESS* Rx# [id number] Last Released: 08/09/24 Qty/Days Supply: 90 Rx Expiration Date: 11/03/24 Refills Remainin Indication: FOR ANXIETY OUTPT KETOCONAZOLE 2% CREAM (Status = Active) APPLY SMALL AMOUNT TO AFFECTED AREA(S) THREE TIMES PER WEEK (EXTERNAL USE ONLY) Rx# [id number] Last Released: 09/21/24 Qty/Days Supply: 30 Rx Expiration Date: 09/14/25 Refills Remainin OUTPT KETOCONAZOLE 2% SHAMPOO (Status = Active) USE SHAMPOO TO AFFECTED AREA(S) ONCE A DAY FOR SEBORRHEIC DERMATITIS (EXTERNAL USE ONLY) (SHAKE WELL) Rx# [id number] Last Released: 02/12/24 Qty/Days Supply: 240/90 Rx Expiration Date: 02/10/25 Refills Remainin Indication: FOR SEBORRHEIC DERMATITIS OUTPT METOPROLOL TARTRATE 100MG TAB (Status = Active) TAKE ONE-HALF TABLET BY MOUTH TWICE A DAY FOR HIGH BLOOD PRESSURE TAKE WITH OR IMMEDIATELY FOLLOWING FOOD. Rx# [id number] Last Released: 08/17/24 Qty/Days Supply: 90 Rx Expiration Date: 08/17/25 Refills Remainin Indication: FOR HIGH BLOOD PRESSURE OUTPT PANTOPRAZOLE NA 40MG EC TAB (Status = Active) TAKE ONE TABLET BY MOUTH EVERY MORNING BEFORE A MEAL FOR GASTROESOPHAGEAL REFLUX DISEASE TAKE 30 MINUTES BEFORE MEAL(S) Rx# [id number] Last Released: 08/19/24 Qty/Days Supply: 90/ Rx Expiration Date: 08/18/25 Refills Remainin Indication: FOR GASTROESOPHAGEAL REFLUX DISEASE OUTPT TAMSULOSIN HCL 0.4MG CAP (Status = Active) TAKE TWO CAPSULES BY MOUTH EVERY EVENING FOR BENIGN PROSTATIC HYPERPLASIA APPROXIMATELY 30 MINUTES AFTER THE SAME MEAL EACH DAY Rx# [id number] Last Released: 08/06/24 Qty/Days Supply: 180/90 Rx Expiration Date: 08/06/25 Refills Remainin Indication: FOR BENIGN PROSTATIC HYPERPLASIA OUTPT TRAMADOL HCL 50MG TAB (Status = Active) TAKE 2 TABLETS BY MOUTH TWICE A DAY FOR PAIN Rx# [id number] Last Released: 09/21/24 Qty/Days Supply: 120/30 Rx Expiration Date: 03/22/25 Refills Remainin Indication: FOR PAIN SUPPLIES PHARMACY TERMS AND POSSIBLE PATIENT ACTIONS [place] = [place] outpatient prescription PHARMACY POSSIBLE PATIENT TERMS EXPLANATION ACTIONS -------- -- ACTIVE A prescription that can be If you have refills, filled at the local [place] pharmacy. you may request a refill of this prescription from your [facility] pharmacy. CLINIC A medication you received during If you have questions a visit to a [place] clinic or about this medication emergency department. contact your [place] healthcare team. DISCONTINUED A prescription your provider has Contact your [place] stopped. It is no longer healthcare team if you available to be sent to you or need more of this picked up at the [place] pharmacy medication. window. A prescription which is too old Contact your [facility] to fill. This does not refer to healthcare team if you the expiration date of the need more of this medication in the container. medication. NON-VA A medication that came from If this medication someplace other than a [facility] information is pharmacy. This may be a incorrect or out of prescription from either the VA date, please tell your or non VA providers that was VA healthcare team. filled outside the VA. Or, it may be an rvvg-bwe-[id number] (OTC), herbal, dietary supplements or sample medication. ON HOLD An active prescription that will Contact your [place] not be filled until pharmacy pharmacy when you need resolves the issue. more of this medication. PARKED An active prescription that will Contact your [facility] not be filled until the patient pharmacy when you need requests it. this medication. PENDING This prescription order has been If you have been sent to the pharmacy for review instructed to start and is not ready yet. this medication now, contact your [facility] pharmacy. SUSPENDED An active prescription that is Contact your [place] not scheduled to be filled yet. pharmacy if you need You should receive it before this medication now. you run out. ====== Patient reports taking medications as ordered. IS PATIENT TAKING ANY OVER THE COUNTER MEDICATIONS, SUCH VITAMINS OR HERBAL SUPPLEMENTS, INCLUDING ANY MEDICATIONS PRESCRIBED BY ANOTHER PHYSICIAN? Yes, List: mens one a day ALLERGIES/ADVERSE REACTIONS: GABAPENTIN Does patient have any new allergies to report since last visit? NO VITALS: TEMPERATURE: 97.7 F [36.5 C] (02/10/2024 13:14) BP: 115/72 (02/17/2024 13:54) RESP: 18 (02/17/2024 13:54) PULSE: 56 (02/17/2024 13:54) HT: 72 in [182.9 cm] (02/10/2024:) WT: 159 lb [72.12 kg] (02/10/2024:) BMI: 21.6 PAIN ASSESSMENT: (Most Recent Pain Score in Vitals Package: 0 (02/10/2024 13:14) ) The patient indicated that they and their close contacts have not traveled outside of the [place] in the past 21 days. The patient reports the following symptoms: No symptoms present The patient is not immunocompromised. The patient does not report having a history of Multi Drug Resistant Organism (MDRO) within the last five years. The patient does not report having been exposed to measles, chickenpox, or zoster in last 30 days. STRESS: Thank you for your service. Now let us serve you. At the [facility], we strive to provide you with exceptional health care that improves your health and well-being. Are you feeling sad, empty, or depressed? Yes Do you need to talk about things in your life that worry you or cause you stress? No Do you need to talk about personal problems, family problems, alcohol use, drug use, or mental or emotional illness? No SUICIDE SCREENING: The patient was asked, Over the past two weeks, how often have you been bothered by thoughts that you would be better off or of hurting yourself in some way? Not At All SPIRITUAL ASSESSMENT: Are there catholic practices or spiritual concerns you want the circle beveler, your physician, and other health care team members to immediately know about? No Patient advised to call the clinic for any concerns, questions, or symptoms. Patient and/or caregiver verbalized understanding of plan of care. Suicide Screen - V: C-SSRS Screening [place] Suicide Severity Rating Scale (C-SSRS) screener 1. Over the past month, have you wished you were or wished you could go to sleep and not wake up? No 2. Over the past month, have you had any actual thoughts of killing yourself? No 3. Over the past month, have you been thinking about how you might do this? Response not required due to responses to other questions. 4. Over the past month, have you had these thoughts and had some intention of acting on them? Response not required due to responses to other questions. 5. Over the past month, have you started to work out or worked out the details of how to kill yourself? Response not required due to responses to other questions. 6. If yes, at any time in the past month did you intend to carry out this plan? Response not required due to responses to other questions. 7. In your lifetime, have you ever done anything, started to do anything, or prepared to do anything to end your life (for example, collected pills, obtained a gun, gave away valuables, went to the roof but didn't jump)? No 8. If YES, was this within the past 3 months? Response not required due to responses to other questions. Frail/Elderly Screen: Tobacco Use Screening - U,L,N,S,PS,M,DE,PH,P: The patient is a former cigarette smoker. The patient has never used other types of tobacco. Sexual Orientation - CP,L,N,P,PH,PS,S,U: The patient thinks of their sexual orientation as: Straight or Heterosexual Frail/Elderly Screen: RHS Screen - VS: RHS Screen Environmental Check Screening was not completed at this time due to: Other: single Alcohol Use Screen (AUDIT-C) - V: Alcohol Screen: SCREEN FOR ALCOHOL (AUDIT-C) An alcohol screening test (AUDIT-C) was negative (score=0). 1. How often did you have a drink containing alcohol in the past year? Consider a drink to be a 12 ounce can or bottle of regular beer, 8 ounces of malt liquor, a 5 ounce glass of table wine, or a 1.5 ounce shot of liquor (like scotch, gin, or vodka). Never 2. How many drinks containing alcohol did you have on a typical day when you were drinking in the past year? Response not required due to responses to other questions. 3. How often did you have six or more drinks on one occasion in the past year? Response not required due to responses to other questions. Depression Screening - V: Perform PHQ-2 A PHQ-2 screen was performed. The score was 0 which is a negative screen for depression. Over the past two weeks, how often have you been bothered by the following problems? 1. Little interest or pleasure in doing things Not at all 2. Feeling down, depressed, or hopeless Not at all Advanced Directive Screen/Aerodynamics Professor: ADVANCE DIRECTIVE SCREENING: I asked if the patient has an advance directive, and determined that: Patient has an Advance Directive. Patient does not wish to make any changes to the Advance Directive at this time. ADVANCE DIRECTIVE NOTIFICATION I did not provide the patient with written notification about advance directives because has Level of understanding: Pain Assessment: - PAIN ASSESSMENT: .. This patient's last pain assessment score was: 10 (09/27/2024 13:25). A detailed pain assessment showed the following: Pain characteristics (per patient's own words) Constant Location of current pain Arm, Shoulder Patient's self identified pain goal: 0 Weight Control/Nutrition Counseling: * The patient received the following counseling at this encounter: [facility] - [facility] MAP: PERSONAL HEALTH PLAN INVENTORY & MAP 's Response: relationship with son /es/ RIZWAN TORIBIO CB Signed: 09/27/2024 15:58 [facility]
--- OUTSIDE RECORDS SUMMARY | 2024-10-27 08:45 | XMS_ITS | Encounter Summary ---
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 Name Role Phone VIVIAN BENJAMIN Primary Care Provider Unavailabl fox Insurance Providers: All historical and current Section [...] PART A Jan 14, 2005 PART A [id number] [phone] WANG PEREZ PATIENT MEDICARE (WNR) MEDICARE (M) PART B Jan 14, 2005 PART B [id number] WANG PEREZ PATIENT MEDICARE (WNR) MEDICARE (M) PART A Jan 14, 2005 PART A [id number] WANG PEREZ PATIENT MEDICARE (WNR) MEDICARE (M) PART B Jan 14, 2005 PART B [id number] WANG PEREZ PATIENT MEDICARE (WNR) MEDICARE (M) PART A Jan 14, 2005 PART A [id number] [phone] GUM,WANG PATIENT MEDICARE (WNR) MEDICARE (M) PART B Jan 14, 2005 PART B [id number] [phone] GUM,WANG PATIENT MEDICARE (WNR) MEDICARE (M) PART A Jan 14, 2005 PART A [id number] GUM,WANG PATIENT MEDICARE (WNR) MEDICARE (M) PART B Jan 14, 2005 PART B [id number] GUMWANG PATIENT Selected Encounter This section includes the information on record at [place] for the Encounter. Date/Time Encounter Type Encounter Description Reason Provider Source Oct 27, 2024 01:45 PM OFF/OP EST MARCH X REQ PHY/QHP PRIMARY CARE/MEDICINE ICD-10-CM Z01.30 Encounter for exam of blood pressure w/o abnormal findings MIESHA JUAREZ Fox Encounter Template Text not used by [place] Assessments - Encounter Diagnoses This section includes the primary and secondary diagnoses documented for the Encounter. Date/Time Primary/Secondary Diagnosis Diagnosis Name Provider Source Oct 31, 2024 03:54 PM PRIMARY Encounter for exam of blood pressure w/o abnormal findings LEE ANN JUAREZ [facility] Plan of Treatment: Future Appointments (+ 6 months) and Future Tests (+/- 45 days) The Plan of Treatment section includes future care activities for the patient from all [place] treatmentfacilities. This section includes future appointments and future orders which are active, pending or scheduled. Future Appointments This section includes appointments that were scheduled to occur 6 months from the date of the Encounter, up to a maximum of 20 appointments. The data comes from all [place] treatment facilities. Appointment Date/Time Appointment Type Appointme nt Facility Name Nov 23, 2024 10:30 AM AMBULATORY - MEDICINE [facility] Apr 18, 2025 10:45 AM AMBULATORY - MEDICINE [facility] Active, Pending, and Scheduled Orders This section includes a listing of several types of active, pending, and scheduled orders, including clinic medications orders, diagnostic test orders, procedure orders and consult orders; where the start date of the order is 45 days before the date of the Encounter or 45 days after the date of theEncounter. The data comes from all [place] treatment facilities. Test Date/Time Test Type Test Details Facility Name Sep 27, 2024 02:00 PM Consult Order [facility] [id number] [place] Dispatch Supervisor's Choice [facility] Oct 05, 2024 12:00 AM Laboratory - Chemi stry Order CBC BLOOD SP [facility] Vital Signs: All taken on the encounter date This section contains inpatient and outpatient Vital Signs collected on the date of the Encounter. Date/Time Temperature Pulse Blood Pressure Respiratory Rate SP02 Pain Height Weight Body Mass Index Source Oct 27, 2024 01:58 PM 98.2 54 138/80 17 95 162.2 22 [facility] Social History: Smoking Status (Most current) and Tobacco Use (All prior to encounter date) This section includes the most current, and the historical, smoking and tobacco- related health factors from the [place] facility where the Encounter took place. Current Smoking Status This section includes the most current smoking, or tobacco-related health factor, from the [place] facility where the Encounter took place. Date/Time Current Smoking Status Comment Facil ity Sep 27, 2024 01:00 PM VA-TOBACCO USE FORMER CIGARETTES [facility] Tobacco Use History This section includes a history of the smoking, or tobacco-related health factors, that were collected on or before the date of the Encounter. The data comes from the [place] facility where the Encounter took place. Date/Time Smoking Status/Tobacco Use Comment F acility Sep 27, 2024 01:00 PM VA-TOBACCO USE FORMER CIGARETTES [facility] Oct 05, 2023 01:30 PM VA-TOBACCO FORMER USER [facility] Oct 05, 2023 01:30 PM VA-TOBACCO QUIT 15 YRS OR MORE [facility] Nov 22, 2018 01:26 PM VA-TOBACCO FORMER USER [facility] Nov 22, 2018 01:26 PM VA-TOBACCO QUIT 15 YRS OR MORE [facility] Dec 14, 2017 01:23 PM QUIT TOBACCO >7 YEARS AGO [facility] Sep 22, 2008 10:42 AM QUIT TOBACCO >7 YEARS AGO [facility] March 21, 2008 08:57 AM QUIT TOBACCO >7 YEARS AGO [facility] Jan 20, 2008 08:25 AM QUIT TOBACCO >7 YEARS AGO [facility] Encounter Notes: All associated encounter notes This section contains the clinical notes associated to the Encounter. Date/Time Encounter Note(s) Provider Source Oct 27, 2024 12:51 PM NURSING PROGRESS NOTE: LOCAL TITLE: NURSING NOTE PB STANDARD TITLE: NURSING PROGRESS NOTE DATE OF NOTE: OCT 27, 2024@12:51 ENTRY DATE: OCT 27, 2024@12:51:16 AUTHOR: LEE ANN JUAREZ COSIGNER: URGENCY: STATUS: COMPLETED This is a 84 year old MALE with known Allergies as noted: GABAPENTIN On the following Active Medications: Active Outpatient Medications (including Supplies): Active Outpatient [...] MOUTH TWICE A ACTIVE DAY FOR PAIN C/C: BP check S: The presented to the clinic today for BP check. The was last seen on 09/27/24 and sent to the ER for new onset of AFib with RVR. The reports he is feeling much better and is taking his medications as ordered, but that his BP cuff is not working at home and is wanting to get his BP checked today. The is also reporting that he is having trouble getting rides to his appointments and is asking if there is anything that we could do to help. From 09/27/24 PCP note New onset atrial fibrillation with RVR: ECG consistent with A-fib with RVR today with a ventricular rate of 121; patient is essentially asymptomatic however with his recurrent falls I am sending him over to the ER for treatment and will increase his metoprolol to a full 100 mg twice daily HTN - on HCZ 25mg and metoprolol Hospital note 09/29/24 Date of Discharge: September 29, 2024 Hospital Course Wang Perez is a 84 year old male with past medical history of hypertension, BPH was sent [place] the [place] from [place] clinic where he had gone for general health checkup and an EKG he was found to have A-fib with RVR. Patient himself denied any nausea vomiting, headache, chest pain, dizziness, palpitations. Patient himself denies any past history of bleeding, hematemesis, melena, hematuria or blood transfusion. He denies history of smoking or difficulty breathing. He does give history of dizziness and fall last week when he was trying to get out of bed to make coffee. Gives history of hitting his head. States recently hydroxyzine has been added to his medication nightly. In the ER he was started on Cardizem drip after which his heart rate settled and is currently running at 80 bpm though continues to remain in A-fib. Patient is currently saturating well more than 92% on room air. Patient's home dose of metoprolol was increased and Cardizem was weaned off. Patient's heart rate improved after increase metoprolol. Given history of fall at home he was seen by physical therapy and was found to be orthostatic on examination. Given concerns for mild dehydration on admission he was given IV fluids. After IV hydration patient did convert to normal sinus rhythm and has maintained a normal sinus rhythm over the last 24 hours. Her blood pressures have improved with improvement in her dizziness. He has been discharged in hemodynamically stable condition on increased dose of metoprolol. Home dose of hydrochlorothiazide has been continued. Hydroxyzine has been changed to as needed as citalopram has been continued at 10 mg/day. He is advised to not increase citalopram further because of side effects of orthostatic hypotension. Patient Disposition: Home Changed metoprolol tartrate 50 mg tablet 50 mg PO BID Qty: 60 0RF hydroxyzine HCl 10 mg tablet 10 mg PO BEDTIME PRN (Reason: anxiety) Qty: 7 0RF Discontinued gabapentin 100 mg capsule 200 mg PO BEDTIME Activity Restrictions/Additional Instructions: Check your blood pressure daily at home maintain a blood pressure diary. Follow-up with a primary care provider within next 1 week for further adjustment of antihypertensive as needed. Goal blood pressures less than 140/90 mmHg. Dose of metoprolol has been increased to 50 mg twice daily. Do not take hydroxyzine every night. Only take it as needed. Hydroxyzine can cause you to have dizziness. Diagnoses Atrial fibrillation with RVR I48.91 Orthostatic hypotension I95.1 Fall W19.XXXA Unsteadiness on feet R26.81 Benign hypertension I10 Hyperlipidemia E78.5 Moderate mitral regurgitation I34.0 (Provider: Jann Stone MD) --- O/A: The ambulated to the exam room without assistance, gate is steady. Provided the with a new BP cuff and educated him on how to use it. The confirms that he is taking Metoprolol 50mg twice daily. Vitals were stable today. Vital Signs: as charted P: Educated the to continue with medications as ordered above and when he returned for BP check we would look at how he is doing. Medication changes listed above are already reflected in the 's current medication list. does not have a current cardiology consult. to keep BP log and return in two weeks for BP check. Let the know that I would alert the covering provider to how he is doing and that we would call him with any further recommendations. The voiced understanding, is in agreement with the plan and has no further questions or complaints at this time. The ambulated to the exit in satisfactory manner. RTC: as needed Per [facility] Directive 1605.06, wristband documentation: Patient wristband was removed and destroyed by (staff name) Dalila Juarez RN and placed in the designated [employer] bin. /orion/ Lee Ann Juarez RN,BSN [place] Signed: 10/31/2024 15:53 LEE ANN JUAREZ
--- OUTSIDE RECORDS SUMMARY | 2024-10-31 05:40 | XMS_ITS ---
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 Name Role Phone Kendal Tejeda APRN Primary Care Provider Dc Zuñiga Unavailable [phone] Riya Perez MD Unavailable Unavailable REASON FOR VISIT BILATERAL SHOULDER Medications Medication SIG (Take, Route, Frequency, Duration) Notes Start Date End Date Status Tamsulosin HCl 0.4 MG 1 capsule Orally Once a day Active Metoprolol Tartrate 50 MG 1 tablet with food Orally Twice a day Active hydrOXYzine HCl 10 MG 1 tablet as needed Orally Once a day Active hydroCHLOROthiazide 25 MG 1 tablet in the morning Orally Once a day Active Gabapentin 100 MG 1 capsule Orally Once a day Active Simvastatin 40 MG 2 tab(s) po hs Oral for 30 Simvastatin 40mg Tablet 2 tab(s) po hs 01/03/2009 Not-Taking Ezetimibe 10 MG 1 tablet Orally Once a day Active Cyclobenzaprine HCl 10 MG 1 tablet at bedtime as needed Orally Once a day Active Citalopram Hydrobromide 10 MG 1 tablet Orally Once a day Active Uroxatral 10 mg Take 1 tablet(s) by mouth daily Oral for 30 UroXatral (Alfuzosin) 10mg Tablets, Extended Release Take 1 tablet(s) by mouth daily #30 (Thirty) tablet(s) 09/25/2010 Not-Taking traMADol HCl 50 MG 1 tablet as needed Orally Once a day Active Encounters Encounter Location Date Provider Diagnosis [facility] [address] [place] [place] [address] 10/31/2024 Dc Sawant Other chronic pain G89.29 ; Pain in right shoulder M25.511 and Pain in left shoulder M25.512 Assessments Encounter Date Diagnosis (ICD Code) Assessment Notes Treatment Notes Treatment Clinical Notes Section Notes 10/31/2024 Other chronic pain (ICD-10 - G89.29) 10/31/2024 Pain in right shoulder (ICD-10 - M25.511) 10/31/2024 Pain in left shoulder (ICD-10 - M25.512) Plan Of Treatment No Information Progress Notes * Dann PEREZ LDOB:1940 ( 85 yo M)Acc No.[id number]:10/31/2024 Progress Notes Patient: Dann BRADSHAW Provider: Shirin Sawant MD :1940 A ge:84 Y S ex:Male Date:10/31/2024 Address:[address] [place] [address], [address], [id number] Pcp:Kendal Tejeda APRN Subjective: * Chief Complaints: * 1 . BILATERAL SHOULDER. * Medical History: * Medications: T aking Citalopram Hydrobromide 10 MG Tablet 1 tablet Orally Once a day , Taking Cyclobenzaprine HCl 10 MG Tablet 1 tablet at bedtime as needed Orally Once a day , Taking Ezetimibe 10 MG Tablet 1 tablet Orally Once a day , Taking Gabapentin 100 MG Capsule 1 capsule Orally Once a day , Taking hydroCHLOROthiazide 25 MG Tablet 1 tablet in the morning Orally Once a day , Taking hydrOXYzine HCl 10 MG Tablet 1 tablet as needed Orally Once a day , Taking Metoprolol Tartrate 50 MG Tablet 1 tablet with food Orally Twice a day , Taking Tamsulosin HCl 0.4 MG Capsule 1 capsule Orally Once a day , Taking traMADol HCl 50 MG Tablet 1 tablet as needed Orally Once a day , Not-Taking Simvastatin 40 MG Tablet 2 tab(s) po hs Oral , Notes to Pharmacist: Simvastatin 40mg Tablet 2 tab(s) po hs, Not-Taking Uroxatral 10 mg Tablet Extended Release 24 Hour Take 1 tablet(s) by mouth daily Oral , Notes to Pharmacist: UroXatral (Alfuzosin) 10mg Tablets, Extended Release T mattie 1 tablet(s) by mouth daily # 30 (Thirty) tablet(s) Objective: * Vitals: Assessment: * Assessment: 1. O ther chronic pain - G89.29 2 . P ain in right shoulder - M25.511 ? 3 . P ain in left shoulder - M25.512 Plan: * Treatment: * Procedure Codes: 7 3050 X-RAY EXAM OF SHOULDERS Forms: * Billing Information: * Visit Code: * Procedure Codes: 41127 X-RAY EXAM OF SHOULDERS. Care Plan Details* * Electronic signature of Ebenezer Sawant MD on 05/10/2025 at 02:57 PM CDT Sign off status: Pending * Provider: Shirin Sawant MD Date: 1 01/01/2024 Generated for Alessandra real/Stephany/Janetteransmitting on: 0 05/10/2025 02:57 PM CDT
--- OUTSIDE RECORDS SUMMARY | 2024-11-23 05:30 | XMS_ITS ---
Author Organization [facility] Address [address] [place] [address] Care Team Providers Care Line Haul Driver Name Role Phone Kendal Tejeda APRN Primary Care Provider Dc Zuñiga Unavailable [phone] Ana SQUIRES, Riya De León Unavailable REASON FOR VISIT BILATERAL SHOULDER Encounters Encounter Location Date Provider Diagnosis [facility] [address] [place] [address], [place] [address] 11/23/2024 Dc Sawant Plan Of Treatment No Information Progress Notes * Dann PEREZ LDOB:1940 ( 85 yo M)Acc No.[id number]:11/23/2024 Progress Notes Patient: Dann BRADSHAW Provider: Shirin Sawant MD :1940 A ge:84 Y S ex:Male Date:11/23/2024 Address:[address] [place] [address], [address] Pcp:Kendal Tejeda APRN Subjective: * Chief Complaints: * 1 . BILATERAL SHOULDER. * Medical History: Objective: * Vitals: Assessment: Plan: * Treatment: Forms: * Billing Information: * Visit Code: * Procedure Codes: Care Plan Details* * Electronic signature of Ebenezer Sawant MD on 05/10/2025 at 02:57 PM CDT Sign off status: Pending * Provider: Shirin Sawant MD Date: 0 11/23/2024 Generated for Printi ng/Faxing/eTransmitting on: 0 05/10/2025 02:57 PM CDT
--- OUTSIDE RECORDS SUMMARY | 2025-04-18 05:45 | XMS_ITS | Encounter Summary ---
Author Name [facility] Address [address] [place] [address] Care Team Providers Care Cloth Measurer Name Role Phone MARY ANN MANUEL Primary Care Provider Unavailabl fox Insurance Providers: [...] Policy [place] MEDICARE (WNR) MEDICARE (M) PART B Jan 14, 2005 PART B [id number] WANG PEREZ PATIENT MEDICARE (WNR) MEDICARE (M) PART A Jan 14, 2005 PART A [id number] 30A WANG PEREZ PATIENT MEDICARE (WNR) MEDICARE (M) PART A Jan 14, 2005 PART A [id number] [phone] WANG PEREZ PATIENT MEDICARE (WNR) MEDICARE (M) PART B Jan 14, 2005 PART B [id number] WANG PEREZ PATIENT MEDICARE (WNR) MEDICARE (M) PART A Jan 14, 2005 PART A [id number] [place] PATIENT MEDICARE (WNR) MEDICARE (M) PART B Jan 14, 2005 PART B [id number] [phone] [place] PATIENT MEDICARE (WNR) MEDICARE (M) PART A Jan 14, 2005 PART A [id number] [place] PATIENT MEDICARE (WNR) MEDICARE (M) PART B Jan 14, 2005 PART B [id number] [phone] WANG PEREZ PATIENT Selected Encounter This section includes the information on record at [place] for the Encounter. Date/Time Encounter Type Encounter Description Reason Provider Source Apr 18, 2025 10:45 AM OFF/OP EST MARCH X REQ PHY/QHP PRIMARY CARE/MEDICINE ICD-10-CM R31.9 Hematuria, unspecified CUSTRED,LEDY J IHE Encounter Template Text not used by [place] Assessments - Encounter Diagnoses This section includes the primary and secondary diagnoses documented for the Encounter. Date/Time Primary/Secondary Diagnosis Diagnosis Name Provider Source Apr 18, 2025 01:31 PM PRIMARY Hematuria, unspecified CUSTRED,LEDY J [facility] Plan of Treatment: Future Appointments (+ 6 months) and Future Tests (+/- 45 days) The Plan of Treatment section includes future care activities for the patient from all [place] treatmentfacilities. This section includes future appointments and future orders which are active, pending or scheduled. Active, Pending, and Scheduled Orders This section includes a listing of several types of active, pending, and scheduled orders, including clinic medications orders, diagnostic test orders, procedure orders and consult orders; where the start date of the order is 45 days before the date of the Encounter or 45 days after the date of theEncounter. The data comes from all [place] treatment facilities. Test Date/Time Test Type Test Details Facility Name Apr 18, 2025 11:29 AM Laboratory - Chemi stry Order POC UA (STL-PB-MA) URINE SP [facility] Lab Results: +/- 30 days of the encounter This section includes the Chemistry and Hematology Lab Results on record with [place] for the patient. Radiology Reports and Pathology Reports are provided separately, in subsequent sections. Lab Results This section contains the Chemistry/Hematology Results that were resulted 30 days before or 30 daysafter the date of the Encounter. Date/Time Source Result Type Result - Unit Interpretation Reference Range Specimen Type Comment Apr 18, 2025 12:11 PM [facility] URINALYSIS W/ CX REFLEX (STL-PB) URINE Specim en Type: URINE Comment: visually checked color Ordering Provider: MARY ANN MANUEL Report Released Date/Time: Apr 18, 2025 12:10 PM Reporting Lab: [facility] [address] [facility] [id number] Performing Lab: [facility] [address] [place] [id number] URINE COLOR Brown Yellow U.BILIRUBIN NEGATIVE mg/dL Negative U.PH 6.0 5.0-8.0 URINE RBC/HPF 2153 /[HPF] H 0-5 APPEARANCE TURBID H Clear U.NITRITE NEGATIVE mg/dL Negative MUCUS MANY /[LPF] H Negative-Rare URN.GLUCOSE NORMAL mg/dL Negative URN.PROTEIN 70 mg/dL H URN.UROBILINOGEN NORMAL mg/dL Normal URN.BLOOD 3+ mg/dL H Negative-Trace URN.KETONES NEGATIVE mg/dL Negative-Trac e URN.LEUK.EST. 25 Negative-Trace URN.SPECIFIC GRAVITY 1.020 1.005-1.029 Apr 18, 2025 11:30 AM [facility] POC UA (STL-PB-MA) URINE Specimen Type: URINE No comment entered. Ordering Provider: MARY ANN MANUEL Report Released Date/Time: Apr 18, 2025 11:36 AM Reporting Lab: [facility] [address] [id number] Performing Lab: [facility] [address] [phone] PROTEIN POC UA 100 mg/dL Negative BLOOD POC UA Large Negative LEUKOCYTES POC UA Negative Negative COLOR POC UA Brown YELLOW SPEC GRAV POC UA 1.025 1.005-1.030 UROBILINOGEN POC UA 1.0 {Bindu'U}/dL 0 .1-1.0 BILIRUBIN POC UA Negative Negative KETONES POC UA Negative mg/dL Negative GLUCOSE POC UA Negative mg/dL Negative pH POC UA 6.0 5.0-8.0 NITRITE POC UA Negative Negative CLARITY POC UA Turbid CLEAR Apr 18, 2025 11:29 AM [facility] CBC BLOOD Specimen Type: BLOOD No comment entered. Ordering Provider: MARY ANN MANUEL Report Released Date/Time: Apr 18, 2025 11:28 AM Reporting Lab: [facility] [address] [place] [address] Performing Lab: [facility] [address] [place] [address] WBC 7.9 10*3/uL 3.6-11.2 RBC 3.81 10*6/uL L 4.10-5.70 HGB 13.5 g/dL 13.1-16.8 HCT 39.3 38.2-48.4 MCV 103.1 fL H 80.0-100.0 MCH 35.4 pg H 27.0-34.0 MCHC 34.4 g/dL 33.0-36.0 PLT 151 10*3/uL 150-400 MPV 12.0 fL H 7.5-11.2 RDW <11.8 11.8-15.1 LYMPHOCYTES, AUTO % 16.8 MONOCYTES, AUTO % 6.3 NEUTROPHILS, AUTO % 74.3 EOSINOPHILS, AUTO % 1.8 BASOPHILS, AUTO % 0.5 LYMPHOCYTES, ABSOLUTE 1.33 10*3/uL 0.77- 4.50 MONOCYTES, ABSOLUTE 0.50 10*3/uL 0.19-0. 8 NEUTROPHILS, ABSOLUTE 5.91 10*3/uL 2.10- 8.00 EOSINOPHILS, ABSOLUTE 0.14 10*3/uL 0.00- 0.60 BASOPHILS, ABSOLUTE 0.04 10*3/uL 0.00-0. 20 IMMATURE GRANS, AUTO % 0.3 IMMATURE GRANS, AUTO ABS 0.02 10*3/uL 0. 00-0.05 Vital Signs: All taken on the encounter date This section contains inpatient and outpatient Vital Signs collected on the date of the Encounter. Date/Time Temperature Pulse Blood Pressure Respiratory Rate SP02 Pain Height Weight Body Mass Index Source Apr 18, 2025 01:18 PM 98.1 64 148/78 [facility] Social History: Smoking Status (Most current) and Tobacco Use (All prior to encounter date) This section includes the most current, and the historical, smoking and tobacco- related health factors from the [place] facility where the Encounter took place. Current Smoking Status This section includes the most current smoking, or tobacco-related health factor, from the [place] facility where the Encounter took place. Date/Time Current Smoking Status Comment Facil ity Sep 27, 2024 01:00 PM VA-TOBACCO USE FORMER CIGARETTES [facility] Tobacco Use History This section includes a history of the smoking, or tobacco-related health factors, that were collected on or before the date of the Encounter. The data comes from the [place] facility where the Encounter took place. Date/Time Smoking Status/Tobacco Use Comment F acility Sep 27, 2024 01:00 PM VA-TOBACCO USE FORMER CIGARETTES [facility] Oct 05, 2023 01:30 PM VA-TOBACCO FORMER USER [facility] Oct 05, 2023 01:30 PM VA-TOBACCO QUIT 15 YRS OR MORE [facility] Nov 22, 2018 01:26 PM VA-TOBACCO FORMER USER [facility] Nov 22, 2018 01:26 PM VA-TOBACCO QUIT 15 YRS OR MORE [facility] Dec 14, 2017 01:23 PM QUIT TOBACCO >7 YEARS AGO [facility] Sep 22, 2008 10:42 AM QUIT TOBACCO >7 YEARS AGO [facility] March 21, 2008 08:57 AM QUIT TOBACCO >7 YEARS AGO [facility] Jan 20, 2008 08:25 AM QUIT TOBACCO >7 YEARS AGO [facility] Pathology Reports: +/- 30 days of the encounter Pathology Reports For cases when an order for pathology services may have been completed prior to the date of the Encounter, the report list includes the Pathology Reports that were completed up to 30 days before dateof the Encounter. For cases when an order for pathology services may have been completed after the date of the Encounter, the report list also includes the Pathology Reports that were completed up to30 days after date of the Encounter. The data comes from all [place] treatment facilities. Date/Time Pathology Report Provider Source Apr 18, 2025 12:11 PM LR MICROBIOLOGY RE PORT: Accession [UID]: [id number] [[id number]] Received: Apr 18, 2025@15:52 Collection sample: URINE,CLEAN CATCH Collection date: Apr 18, 2025 12:11 Site/Specimen: URINE Provider: MARY ANN MANUEL Test(s) ordered: C&S URINE..................... completed: Apr 21, 2025 * BACTERIOLOGY FINAL REPORT => Apr 21, 2025 09:04 TECH CODE: [id number] CULTURE RESULTS: ENTEROCOCCUS FAECALIS - Quantity: COLONY COUNT >100,000/ML ANTIBIOTIC SUSCEPTIBILITY TEST RESULTS: ENTEROCOCCUS FAECALIS : SUSC INTP VANCOMYCIN.................... 1 S NITROFURANTOIN................ <=16 S LINEZOLID..................... 2 S AMPICILLIN.................... <=2 S BENZYLPENICILLIN.............. 4 S TETRACYCLINE.................. <=1 S Bacteriology Remark(s): Test(s) Performed By: BL =--=--=--=--=--=--=--=--=--=--=-- =--=--=--=--=--=--=--=--=--=--=-- =--=--=--=-- Performing Laboratory: Bacteriology Report Performed By: ROHINI MUNSON [facility] [CLIA# [id number]] [address] [place] [address] [facility] Encounter Notes: All associated encounter notes This section contains the clinical notes associated to the Encounter. Date/Time Encounter Note(s) Provider Source Apr 21, 2025 11:20 AM ADDENDUM: LOCAL TITLE: Addendum STANDARD TITLE: ADDENDUM DATE OF NOTE: APR 21, 2025@11:20:44 ENTRY DATE: APR 21, 2025@11:20:46 AUTHOR: LEDY RODRIGUEZ EXP COSIGNER: URGENCY: STATUS: COMPLETED UA sent as advised at visit. Urine culture results as follows C&S URINE URINE,CLEAN CATCH SP LB #[id number] ---- MICROBIOLOGY ---- Accession [UID]: [id number] [[id number]] Received: Apr 18, 2025@15:52 Collection sample: URINE,CLEAN CATCH Collection date: Apr 18, 2025 12:11 Site/Specimen: URINE Provider: MARY ANN MANUEL Test(s) ordered: C&S URINE..................... completed: Apr 21, 2025 * BACTERIOLOGY FINAL REPORT => Apr 21, 2025 09:04 TECH CODE: [id number] CULTURE RESULTS: ENTEROCOCCUS FAECALIS - Quantity: COLONY COUNT >100,000/ML ANTIBIOTIC SUSCEPTIBILITY TEST RESULTS: ('*' indicates display is suppressed) ENTEROCOCCUS FAECALIS : SUSC INTP VANCOMYCIN.................... 1 S NITROFURANTOIN................ <=16 S LINEZOLID..................... 2 S AMPICILLIN.................... <=2 S BENZYLPENICILLIN.............. 4 S TETRACYCLINE.................. <=1 S Bacteriology Remark(s): Test(s) Performed By: JAVIERF =--=--=--=--=--=--=--=--=--=--= --=--=--=--=--=--=--=--=--=--=- -=--=--=--=--=-- Performing Laboratory: Bacteriology Report Performed By: ROHINI MUNSON [facility] [CLIA# [id number]] [address] [facility] [place] [address] Will alert PCP. aware and if treatment needed requesting RX to [facility] in [place], [place]. Allergies verified with denies any drug allergies. /orion/ LEDY ADKINS RN [facility] Signed: 04/21/2025 11:23 Receipt Acknowledged By: 04/21/2025 11:25 /es/ Mary Ann Manuel MD [facility] Primary Care --- Original Document --- 04/18/25 NURSING NOTE PB: Blood Pressure: 148/78 Pulse: 64 Temperature: 98.1 F (36.7 C) Pulse Oximetry: 98% Active Outpatient Medications: Active Outpatient Medications (including Supplies): Active Outpatient Medications Status 1) CICLOPIROX 1% TOP SHAMPOO USE SHAMPOO TO AFFECTED AREA(S) ACTIVE 2-3 TIMES A WEEK. LEAVE ON SCALP FOR 5 MINUTES THEN RINSE. 2) CITALOPRAM HYDROBROMIDE 20MG TAB TAKE ONE-HALF TABLET BY ACTIVE MOUTH EVERY MORNING Indication: FOR ANXIETY 3) CLOBETASOL PROPIONATE 0.05% TOP SOLN APPLY TO SCALP TO ACTIVE AFFECTED AREA(S) TWICE DAILY NEEDED FOR FLAKEY ITCHY SCALP 4) EZETIMIBE 10MG TAB TAKE ONE TABLET BY MOUTH ONCE A DAY ACTIVE Indication: FOR HIGH CHOLESTEROL 5) FERROUS SULFATE 324MG EC TAB TAKE ONE TABLET BY MOUTH ONCE A ACTIVE DAY Indication: FOR IRON SUPPLEMENTATION 6) HYDROCHLOROTHIAZIDE 25MG TAB TAKE ONE TABLET BY MOUTH ONCE A ACTIVE DAY Indication: FOR HIGH BLOOD PRESSURE 7) KETOCONAZOLE 2% CREAM APPLY SMALL AMOUNT TO AFFECTED AREA(S) ACTIVE THREE TIMES PER WEEK (EXTERNAL USE ONLY) 8) METOPROLOL TARTRATE 100MG TAB TAKE ONE-HALF TABLET BY MOUTH ACTIVE TWICE A DAY TAKE WITH OR IMMEDIATELY FOLLOWING FOOD. Indication: FOR HIGH BLOOD PRESSURE 9) PANTOPRAZOLE NA 40MG EC TAB TAKE ONE TABLET BY MOUTH EVERY ACTIVE MORNING BEFORE A MEAL TAKE 30 MINUTES BEFORE MEAL(S) Indication: FOR GASTROESOPHAGEAL REFLUX DISEASE 10) TAMSULOSIN HCL 0.4MG CAP TAKE TWO CAPSULES BY MOUTH EVERY ACTIVE EVENING APPROXIMATELY 30 MINUTES AFTER THE SAME MEAL EACH DAY Indication: FOR BENIGN PROSTATIC HYPERPLASIA 11) TRAMADOL HCL 50MG TAB TAKE 2 TABLETS BY MOUTH TWICE A DAY ACTIVE Indication: FOR PAIN CC: presents to clinic for blood in urine. Subjective: states for last 2 days he has noticed tea colored urine when voiding. Reports he increased oral hydration but urine remains dark in color. He brought urine specimen with him from home and urine is tea colored. Denies fevers, chills, malaise, urinary frequency or urgency, burning, or any other discomforts. Reports history of renal calculi in past but denies symptoms currently. No back or flank pain per . O/A: is alert and oriented. Afebrile. Respirations easy with clear breath sounds. Heart rate regular with no peripheral edema. Abdomen soft no palpated tenderness over lower abdomen. No flank pain. Blood pressure slightly elevated with reporting he did not take todays medications yet. Denies any urinary symptoms and feels he is voiding without difficulty and feels he empties fully. Plan/ Intervention: Discussed with Pact PCP. POC urine today with urinalysis send out. POC as follows LEUKOCYTES POC UA Negative Ref: Negative GLUCOSE POC UA Negative mg/dL Ref: Negative BILIRUBIN POC UA Negative Ref: Negative KETONES POC UA Negative mg/dL Ref: Negative SPEC GRAV POC UA 1.025 1.005 - 1.030 BLOOD POC UA Large Ref: Negative pH POC UA 6.0 5.0 - 8.0 PROTEIN POC UA 100 mg/dL Ref: Negative UROBILINOGEN POC UA 1.0 E.U./dL 0.1 - 1.0 NITRITE POC UA Negative Ref: Negative COLOR POC UA Brown Ref: YELLOW CLARITY POC UA Turbid Ref: CLEAR Comments: Educated to increase oral hydration with water. If any fevers, chills, pain, or other symptoms seek re-evaluation in clinic or ER. RTC: As scheduled or as needed. Per A Directive 1605.06, wristband documentation: Patient wristband was removed and destroyed by (staff name) Ledy Rodriguez RN and placed in the designated [employer] bin. /es/ LEDY ADKINS, [facility] Signed: 04/18/2025 13:30 Receipt Acknowledged By: 04/21/2025 11:24 /mart Manuel MD [facility] 04/21/2025 ADDENDUM STATUS: COMPLETED urine culture is possitive? Who ordered the UA? Willl need antibioitcs if not started yet? /mart Manuel MD [facility] Signed: 04/21/2025 10:46 Receipt Acknowledged By: 04/21/2025 11:20 /mart ADKINS RN [facility] 04/21/2025 ADDENDUM STATUS: UNSIGNED You may not VIEW this UNSIGNED Addendum. LEDY RODRIGUEZ [facility] Apr 21, 2025 10:45 AM ADDENDUM: LOCAL TITLE: Addendum STANDARD TITLE: ADDENDUM DATE OF NOTE: APR 21, 2025@10:45:22 ENTRY DATE: APR 21, 2025@10:45:23 AUTHOR: MARY ANN MANUEL EXP COSIGNER: URGENCY: STATUS: COMPLETED urine culture is possitive? Who ordered the UA? Willl need antibioitcs if not started yet? /mart Manuel MD [facility] Signed: 04/21/2025 10:46 Receipt Acknowledged By: 04/21/2025 11:20 /mart ADKINS RN [facility] --- Original Document --- 04/18/25 NURSING NOTE PB: Blood Pressure: 148/78 Pulse: 64 Temperature: 98.1 F (36.7 C) Pulse Oximetry: 98% Active Outpatient Medications: Active Outpatient Medications (including Supplies): Active Outpatient Medications Status 1) CICLOPIROX 1% TOP SHAMPOO USE SHAMPOO TO AFFECTED AREA(S) ACTIVE 2-3 TIMES A WEEK. LEAVE ON SCALP FOR 5 MINUTES THEN RINSE. 2) CITALOPRAM HYDROBROMIDE 20MG TAB TAKE ONE-HALF TABLET BY ACTIVE MOUTH EVERY MORNING Indication: FOR ANXIETY 3) CLOBETASOL PROPIONATE 0.05% TOP SOLN APPLY TO SCALP TO ACTIVE AFFECTED AREA(S) TWICE DAILY NEEDED FOR FLAKEY ITCHY SCALP 4) EZETIMIBE 10MG TAB TAKE ONE TABLET BY MOUTH ONCE A DAY ACTIVE Indication: FOR HIGH CHOLESTEROL 5) FERROUS SULFATE 324MG EC TAB TAKE ONE TABLET BY MOUTH ONCE A ACTIVE DAY Indication: FOR IRON SUPPLEMENTATION 6) HYDROCHLOROTHIAZIDE 25MG TAB TAKE ONE TABLET BY MOUTH ONCE A ACTIVE DAY Indication: FOR HIGH BLOOD PRESSURE 7) KETOCONAZOLE 2% CREAM APPLY SMALL AMOUNT TO AFFECTED AREA(S) ACTIVE THREE TIMES PER WEEK (EXTERNAL USE ONLY) 8) METOPROLOL TARTRATE 100MG TAB TAKE ONE-HALF TABLET BY MOUTH ACTIVE TWICE A DAY TAKE WITH OR IMMEDIATELY FOLLOWING FOOD. Indication: FOR HIGH BLOOD PRESSURE 9) PANTOPRAZOLE NA 40MG EC TAB TAKE ONE TABLET BY MOUTH EVERY ACTIVE MORNING BEFORE A MEAL TAKE 30 MINUTES BEFORE MEAL(S) Indication: FOR GASTROESOPHAGEAL REFLUX DISEASE 10) TAMSULOSIN HCL 0.4MG CAP TAKE TWO CAPSULES BY MOUTH EVERY ACTIVE EVENING APPROXIMATELY 30 MINUTES AFTER THE SAME MEAL EACH DAY Indication: FOR BENIGN PROSTATIC HYPERPLASIA 11) TRAMADOL HCL 50MG TAB TAKE 2 TABLETS BY MOUTH TWICE A DAY ACTIVE Indication: FOR PAIN CC: presents to clinic for blood in urine. Subjective: [place] states for last 2 days he has noticed tea colored urine when voiding. Reports he increased oral hydration but urine remains dark in color. He brought urine specimen with him from home and urine is tea colored. Denies fevers, chills, malaise, urinary frequency or urgency, burning, or any other discomforts. Reports history of renal calculi in past but denies symptoms currently. No back or flank pain per . O/A: [place] is alert and oriented. Afebrile. Respirations easy with clear breath sounds. Heart rate regular with no peripheral edema. Abdomen soft no palpated tenderness over lower abdomen. No flank pain. Blood pressure slightly elevated with reporting he did not take todays medications yet. Denies any urinary symptoms and feels he is voiding without difficulty and feels he empties fully. Plan/ Intervention: Discussed with Pact PCP. POC urine today with urinalysis send out. POC as follows LEUKOCYTES POC UA Negative Ref: Negative GLUCOSE POC UA Negative mg/dL Ref: Negative BILIRUBIN POC UA Negative Ref: Negative KETONES POC UA Negative mg/dL Ref: Negative SPEC GRAV POC UA 1.025 1.005 - 1.030 BLOOD POC UA Large Ref: Negative pH POC UA 6.0 5.0 - 8.0 PROTEIN POC UA 100 mg/dL Ref: Negative UROBILINOGEN POC UA 1.0 E.U./dL 0.1 - 1.0 NITRITE POC UA Negative Ref: Negative COLOR POC UA Brown Ref: YELLOW CLARITY POC UA Turbid Ref: CLEAR Comments: Educated to increase oral hydration with water. If any fevers, chills, pain, or other symptoms seek re-evaluation in clinic or ER. RTC: As scheduled or as needed. Per [facility] Directive 1605.06, wristband documentation: Patient wristband was removed and destroyed by (staff name) Ledy Rodriguez RN and placed in the designated [employer] bin. /es/ LEDY RODRIGUEZ BSN, [facility] Signed: 04/18/2025 13:30 Receipt Acknowledged By: * AWAITING SIGNATURE * MARY ANN MANUEL 04/21/2025 ADDENDUM STATUS: UNSIGNED You may not VIEW this UNSIGNED Addendum. MARY ANN MANUEL [facility] Apr 18, 2025 11:45 AM NURSING PROGRESS N OTE: LOCAL TITLE: NURSING NOTE PB STANDARD TITLE: NURSING PROGRESS NOTE DATE OF NOTE: APR 18, 2025@11:45 ENTRY DATE: APR 18, 2025@13:18:19 AUTHOR: LEDY RODRIGUEZ EXP COSIGNER: URGENCY: STATUS: COMPLETED NURSING NOTE PB Has ADDENDA Blood Pressure: 148/78 Pulse: 64 Temperature: 98.1 F (36.7 C) Pulse Oximetry: 98% Active Outpatient Medications: Active Outpatient Medications (including Supplies): Active Outpatient Medications Status 1) CICLOPIROX 1% TOP SHAMPOO USE SHAMPOO TO AFFECTED AREA(S) ACTIVE 2-3 TIMES A WEEK. LEAVE ON SCALP FOR 5 MINUTES THEN RINSE. 2) CITALOPRAM HYDROBROMIDE 20MG TAB TAKE ONE-HALF TABLET BY ACTIVE MOUTH EVERY MORNING Indication: FOR ANXIETY 3) CLOBETASOL PROPIONATE 0.05% TOP SOLN APPLY TO SCALP TO ACTIVE AFFECTED AREA(S) TWICE DAILY NEEDED FOR FLAKEY ITCHY SCALP 4) EZETIMIBE 10MG TAB TAKE ONE TABLET BY MOUTH ONCE A DAY ACTIVE Indication: FOR HIGH CHOLESTEROL 5) FERROUS SULFATE 324MG EC TAB TAKE ONE TABLET BY MOUTH ONCE A ACTIVE DAY Indication: FOR IRON SUPPLEMENTATION 6) HYDROCHLOROTHIAZIDE 25MG TAB TAKE ONE TABLET BY MOUTH ONCE A ACTIVE DAY Indication: FOR HIGH BLOOD PRESSURE 7) KETOCONAZOLE 2% CREAM APPLY SMALL AMOUNT TO AFFECTED AREA(S) ACTIVE THREE TIMES PER WEEK (EXTERNAL USE ONLY) 8) METOPROLOL TARTRATE 100MG TAB TAKE ONE-HALF TABLET BY MOUTH ACTIVE TWICE A DAY TAKE WITH OR IMMEDIATELY FOLLOWING FOOD. Indication: FOR HIGH BLOOD PRESSURE 9) PANTOPRAZOLE NA 40MG EC TAB TAKE ONE TABLET BY MOUTH EVERY ACTIVE MORNING BEFORE A MEAL TAKE 30 MINUTES BEFORE MEAL(S) Indication: FOR GASTROESOPHAGEAL REFLUX DISEASE 10) TAMSULOSIN HCL 0.4MG CAP TAKE TWO CAPSULES BY MOUTH EVERY ACTIVE EVENING APPROXIMATELY 30 MINUTES AFTER THE SAME MEAL EACH DAY Indication: FOR BENIGN PROSTATIC HYPERPLASIA 11) TRAMADOL HCL 50MG TAB TAKE 2 TABLETS BY MOUTH TWICE A DAY ACTIVE Indication: FOR PAIN CC: presents to clinic for blood in urine. Subjective: [place] states for last 2 days he has noticed tea colored urine when voiding. Reports he increased oral hydration but urine remains dark in color. He brought urine specimen with him from home and urine is tea colored. Denies fevers, chills, malaise, urinary frequency or urgency, burning, or any other discomforts. Reports history of renal calculi in past but denies symptoms currently. No back or flank pain per . O/A: [place] is alert and oriented. Afebrile. Respirations easy with clear breath sounds. Heart rate regular with no peripheral edema. Abdomen soft no palpated tenderness over lower abdomen. No flank pain. Blood pressure slightly elevated with reporting he did not take todays medications yet. Denies any urinary symptoms and feels he is voiding without difficulty and feels he empties fully. Plan/ Intervention: Discussed with Pact PCP. POC urine today with urinalysis send out. POC as follows LEUKOCYTES POC UA Negative Ref: Negative GLUCOSE POC UA Negative mg/dL Ref: Negative BILIRUBIN POC UA Negative Ref: Negative KETONES POC UA Negative mg/dL Ref: Negative SPEC GRAV POC UA 1.025 1.005 - 1.030 BLOOD POC UA Large Ref: Negative pH POC UA 6.0 5.0 - 8.0 PROTEIN POC UA 100 mg/dL Ref: Negative UROBILINOGEN POC UA 1.0 E.U./dL 0.1 - 1.0 NITRITE POC UA Negative Ref: Negative COLOR POC UA Brown Ref: YELLOW CLARITY POC UA Turbid Ref: CLEAR Comments: Educated to increase oral hydration with water. If any fevers, chills, pain, or other symptoms seek re-evaluation in clinic or ER. RTC: As scheduled or as needed. Per [facility] Directive 1605.06, wristband documentation: Patient wristband was removed and destroyed by (staff name) Ledy Rodriguez RN and placed in the designated [employer] bin. /orion/ LEDY ADKINS RN [facility] Signed: 04/18/2025 13:30 Receipt Acknowledged By: 04/21/2025 11:24 /mart Manuel MD [facility] 04/21/2025 ADDENDUM STATUS: COMPLETED urine culture is possitive? Who ordered the UA? Willl need antibioitcs if not started yet? /orion/ Mary Ann Manuel MD [facility] Signed: 04/21/2025 10:46 Receipt Acknowledged By: 04/21/2025 11:20 /orion/ LEDY ADKINS RN [facility] 04/21/2025 ADDENDUM STATUS: COMPLETED UA sent as advised at visit. Urine culture results as follows C&S URINE URINE,CLEAN CATCH SP LB #[id number] ---- MICROBIOLOGY ---- Accession [UID]: [id number] [[id number]] Received: Apr 18, 2025@15:52 Collection sample: URINE,CLEAN CATCH Collection date: Apr 18, 2025 12:11 Site/Specimen: URINE Provider: MARY ANN MNAUEL Test(s) ordered: C&S URINE..................... completed: Apr 21, 2025 * BACTERIOLOGY FINAL REPORT => Apr 21, 2025 09:04 TECH CODE: [id number] CULTURE RESULTS: ENTEROCOCCUS FAECALIS - Quantity: COLONY COUNT >100,000/ML ANTIBIOTIC SUSCEPTIBILITY TEST RESULTS: ('*' indicates display is suppressed) ENTEROCOCCUS FAECALIS : SUSC INTP VANCOMYCIN.................... 1 S NITROFURANTOIN................ <=16 S LINEZOLID..................... 2 S AMPICILLIN.................... <=2 S BENZYLPENICILLIN.............. 4 S TETRACYCLINE.................. <=1 S Bacteriology Remark(s): Test(s) Performed By: SHARLENE =--=--=--=--=--=--=--=--=--=--= --=--=--=--=--=--=--=--=--=--=- -=--=--=--=--=-- Performing Laboratory: Bacteriology Report Performed By: [facility] [CLIA# [id number]] [address] [facility] [place] [address] Will alert PCP. [place] aware and if treatment needed requesting RX to [facility] in [place], [place]. Allergies verified with denies any drug allergies. /orion/ LEDY ADKINS RN [facility] Signed: 04/21/2025 11:23 Receipt Acknowledged By: 04/21/2025 11:25 /orion/ Mary Ann Manuel MD [facility] 04/21/2025 ADDENDUM STATUS: COMPLETED Amoxicillin 500mg TID called to [facility] pharmacy x7days /es/ Mary Ann Manuel MD [facility] Signed: 04/21/2025 11:26 LEDY RODRIGUEZ [facility]
[2025-05-10] VITALS (14 sets, daily range): BP systolic 117–160; BP diastolic 70–98; PULSE 65–143; RESP 10–28; TEMP 36.3; O2SAT 92–98
--- NOTE | 2025-05-10 14:47 | ECG_ITS ---
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
--- NOTE | 2025-05-10 14:49 | CTR_ITS ---
PROCEDURE INFORMATION: Exam: CT Chest Without Contrast; Diagnostic Exam date and time: 05/10/2025 3:38 PM Age: 85 years old Clinical indication: Abdominal pain; Generalized; Chest pressure; Additional info: Afib rvr, left flank pain TECHNIQUE: Imaging protocol: Diagnostic computed tomography of the chest without contrast. Radiation optimization: All CT scans at this facility use at least one of these dose optimization techniques: automated exposure control; mA and/or kV adjustment per patient size (includes targeted exams where dose is matched to clinical indication); or iterative reconstruction. COMPARISON: CT chest w con* [id number] 12/06/2019 10:24 AM RADIATION DOSE METRICS: Total DLP (mGy-cm): 783.72 FINDINGS: Lungs: There is no consolidation. There is a noncalcified pulmonary nodule in the right upper lobe visible on series 4, image 14 measuring 4 mm, new since 2020. There is subsegmental atelectasis in the left lung. Trachea and bronchi are normal. Pleural spaces: There is no pleural effusion or pneumothorax. Heart: Heart size is normal. There is trace pericardial effusion. Coronary arteries: There is mild coronary artery calcification. Lymph nodes: There is no mediastinal or hilar lymphadenopathy. Vasculature: There is mild aortic atherosclerotic disease. 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 There is moderate to severe diffuse disc degeneration in the thoracic spine. No acute osseous findings. Soft tissues: The extrathoracic soft tissues are unremarkable. months. (Reference: Rainer) 3. Incidental findings above. REFERENCES: Rainer H, et al. Guidelines for Management of Incidental Pulmonary Nodules Detected on CT Images: From the Fleischner Society 2017. Radiology. 2017;284(1):228-243. PROCEDURE INFORMATION: Exam: CT Abdomen And Pelvis Without Contrast Exam date and time: 05/10/2025 3:38 PM Age: 85 years old Clinical indication: Abdominal pain; Generalized; Chest pressure; Additional info: Afib rvr, left flank pain TECHNIQUE: Imaging protocol: Computed tomography of the abdomen and pelvis without contrast. Radiation optimization: All CT scans at this facility use at least one of these dose optimization techniques: automated exposure control; mA and/or kV adjustment per patient size (includes targeted exams where dose is matched to clinical indication); or iterative reconstruction. COMPARISON: CT abdomen pelvis w con* [id number] 10/15/2019 2:46 PM RADIATION DOSE METRICS: Total DLP (mGy-cm): 783.72 FINDINGS: Liver: The liver is normal. Gallbladder and biliary ducts: The gallbladder is absent. There is no intrahepatic or extrahepatic bile duct dilation. Pancreas: There is moderate atrophy of the pancreas. Spleen: Splenic size is normal. There are scattered calcifications consistent with healed granulomas. Adrenal glands: The adrenal glands are unremarkable. Kidneys and ureters: There are nonobstructive stones in both kidneys measuring up to 6 mm on the right and 9 mm on the left. Mild left hydronephrosis. No hydronephrosis on the right. 5 x 5 x 4 mm stone in the mid left ureter at the level of the lumbosacral junction. Stomach and bowel: The stomach is nondistended, limiting assessment of wall thickness. The small bowel is nondilated. There is moderate sigmoid colonic diverticulosis without evidence of diverticulitis. Appendix: The appendix is not visible. Intraperitoneal space: There is no free air or significant intraperitoneal free fluid. Vasculature: There is moderate aortic atherosclerotic disease. Lymph nodes: There is no lymphadenopathy in the retroperitoneum, mesentery, pelvis or inguinal regions. Urinary bladder: The urinary bladder is unremarkable. Reproductive: There is nonspecific marked enlargement of the prostate gland. Bones/joints: There is moderate degenerative disease in the lumbar spine. Soft tissues: The abdominal wall is intact. CT/[place] [id number] IMPRESSION: 1. No acute findings. 2. 4 mm right upper lobe pulmonary nodule. For patients at low risk (minimal or absent history of smoking and of other known risk factors), no routine follow-up is indicated. For patients at high risk (history of smoking or of other known risk factors), consider optional CT Chest at 12 IMPRESSION: 1. 5 mm obstructive stone in the mid left ureter producing mild hydronephrosis. 2. Bilateral nonobstructive nephrolithiasis. 3. Incidental findings above.
--- OUTSIDE RECORDS SUMMARY | 2025-05-10 14:56 | XMS_ITS | Continuity of Care Document ---
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 It does not include entries that were removed or entered in error. Problem Status Onset Date Problem Type Date of Resolution Comments Source GERD - Gastro-esophageal reflux disease (SNOMED CT 897296908) Active 999 Condition May 07, 2012 Entered By: ALICE HUTTON Comment: SC: DEGENERATIVE CHANGES OF L-SPINE LISTED BACK STRAIN [place] [facility] Osteoarthrosis, localized, not specified whether primary or secondary, involving Inactive 999 Condition 01/07/2017 May 07, 2012 Entered By: ALICE HUTTON Comment: SC: LT SHOULDER DEGENERATIVE CHANGESJun 2011 Entered By: ALICE HUTTON Comment: LISTED LIMITED MOTION OF ARM [place] [facility] Osteoarthrosis, unspecified whether generalized or localized, involving lower le Inactive 999 Condition 01/07/2017 May 07, 2012 Entered By: ALICE HUTTON Comment: SC: S/P ARTHROSCOPIC PARTIAL MEDIAL MENISECTOMYJun 2011 Entered By: ALICE HUTTON Comment: AND ARTHROSCOPIC DEBRIDEMENT W/ HX OF RT KNEEJun 2011 Entered By: ALICE HUTTON Comment: DEGENERATIVE ARTHRITISJun 2011 Entered By: ALICE HUTTON Comment: LISTED TRAUMATIC ARTHRITIS [place] [facility] Asymptomatic Varicose Veins of lower extremity, (any part) or unspecified site Inactive 980 Condition 01/07/2017 May 07, 2012 Entered By: ALICE HUTTON Comment: SC: VARISOSE VEINS, LT LEG W/ HX HEMANGIOMA [place] [facility] Anemia (SCT [id number]) Active Condition [place] [facility] Anxiety (SNOMED CT 03672784) Active Condition [place] [facility] Benign prostatic hyperplasia Active Condition [place] [facility] Cervical Radiculopathy (ICD-9-CM 723.4) Active Condition [facility] Chronic back pain Active Condition [facility] 2022 Entered By: VIVIAN BENJAMIN Comment: SC: DEGENERATIVE CHANGES OF L-SPINE LISTED BACK STRAIN [facility] Hearing Loss (SCT [id number]) Active Condition [place] [facility] HLD - Hyperlipidemia (SNOMED CT 52186547) Active Condition [place] [facility] HTN - Hypertension (SNOMED CT 56457118) Active Condition [place] [facility] HYPERTENSION Active Condition [facility] OA - Osteoarthritis (SCT 704019339) Active Condition Oct 16, 2020 Entered By: VIVIAN BENJAMIN Comment: shoulders [place] [facility] 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) Active Condition [facility] PTSD - Post-traumatic stress disorder Active Condition [place] [facility] Seborrheic dermatitis Active Condition [place] [facility] Sensorineural Hearing Loss * (ICD-9-CM 389.10) Active Condition [facility] SENSORNEUR HEAR LOSS NOS Active Condition [facility] TINNITUS NOS Active Condition [facility] Vitamin D Deficiency (SCT 5642309) Active Condition [place] [facility] Chronic back pain Inactive Condition 01/12/[address] [facility] Chronic post-traumatic stress disorder following combat (SNOMED CT 970189591) Inactive Condition 01/12/2017 [place] [facility] Closed subluxation cervical spine Inactive Condition 01/07/2017 [facility] Gastroesophageal Reflux Disease (SNOMED CT 513751718) Inactive Condition 01/12/[address] [facility] Gilbert's syndrome (SNOMED CT 65488603) Inactive Condition 01/07/[address] [facility] Hearing loss * (ICD-9-CM 389.9) Inactive Condition 01/12/2017 [place] [facility] Kidney Stones (ICD-9-CM 592.0) Inactive Condition 01/12/2017 [place] [facility] Laboratory Examination Ordered as part of a Routine General Medical Examination Inactive Condition 01/07/2017 [place] [facility] Osteoarthrosis involving the knee (ICD-9-CM 715.98) Inactive Condition 01/07/2017 [place] [facility] Raynaud's Disease * (ICD-9-CM 443.0) Inactive Condition 01/07/2017 [place] [facility] Routine General Medical Examination at a Health Care Facility * (ICD-9-CM V70.0) Inactive Condition 01/07/2017 [place] [facility] Unresolved Inactive Condition 01/07/2017 [place] [facility] Diagnosis: ICD-10-CM R31.9 Hematuria, unspecified Active Diagnosis [facility] Diagnosis: ICD-10-CM Z71.9 Counseling, unspecified Active Diagnosis [facility] Diagnosis: ICD-10-CM Z01.30 Encounter for exam of blood pressure w/o abnormal findings Active Diagnosis [facility] Diagnosis: ICD-10-CM I48.20 Chronic atrial fibrillation, unspecified Active Diagnosis [facility] Diagnosis: ICD-10-CM M54.50 Low back pain, unspecified Active Diagnosis [facility] Diagnosis: ICD-10-CM L21.9 Seborrheic dermatitis, unspecified Active Diagnosis [place] [facility] Diagnosis: ICD-10-CM Z46.1 Encounter for fitting and adjustment of hearing aid Active Diagnosis [place] [facility] Diagnosis: ICD-10-CM I10 Essential (primary) hypertension Active Diagnosis [facility] Diagnosis: ICD-10-CM Z71.89 Other specified counseling Active Diagnosis [facility] Medications Combined list of outpatient medications from Department of Defense and Veterans Affairs facilities.Medications provided include 1) outpatient medications from the last 15 months, and 2) patient-reported medications. Medication Details Route Status Patient Instructions Prescription Expires Prescription Number Last Dispense Date Ordering Provider Order Date Order Qty Source CICLOPIROX 1% SHAMPOO,TOP USE SHAMPOO TO AFFECTED AREA(S) 2-3 TIMES A WEEK. LEAVE ON SCALP FOR 5 MINUTES THEN RINSE. TOPICA L ACTIVE 09/14/2025 [id number] 4 JENNIFER RAMÍREZ A 2023 120 [place] [facility] CITALOPRAM HYDROBROMID E 20MG TAB TAKE ONE-HALF TABLET BY MOUTH EVERY MORNING FOR ANXIETY ORAL ACTIVE 08/06/2025 [id number] 5 VIVIAN BENJAMIN 2023 45 [place] [facility] CLOBETASOL PROPIONATE 0.05% SOLN,TOP APPLY TO SCALP TO AFFECTED AREA(S) TWICE DAILY NEEDED FOR FLAKEY ITCHY SCALP TOPICA L ACTIVE 09/14/2025 [id number] 4 JENNIFER RAMÍREZNY A 2023 50 [place] [facility] CYCLOBENZAP RINE HCL 10MG TAB TAKE ONE TABLET BY MOUTH TWICE A DAY FOR MUSCLE SPASM MAY CAUSE DROWSINE SS. DO NOT DRINK ALCOHOL WHILE TAKING THIS MEDICATI ON. ORAL 09/16/2024 [id number] 4 SOURAV, VIVIAN 2023 60 [place] [facility] EZETIMIBE 10MG TAB TAKE ONE TABLET BY MOUTH ONCE A DAY FOR HIGH CHOLESTE ROL ORAL ACTIVE 02/02/2026 [id number] 5 SOURAV VIVIAN 2024 90 [facility] FERROUS SO4 324MG TAB,EC TAKE ONE TABLET BY MOUTH ONCE A DAY FOR IRON SUPPLEME NTATION ORAL ACTIVE 08/17/2025 [id number] 4 [facility] 2023 100 [place] [facility] GABAPENTIN 100MG CAP TAKE TWO CAPSULES BY MOUTH AT BEDTIME FOR NERVE PAIN ORAL 11/03/2024 [id number] 4 [facility] 2023 180 [place] [facility] HYDROCHLORO THIAZIDE 25MG TAB TAKE ONE TABLET BY MOUTH ONCE A DAY FOR HIGH BLOOD PRESSURE ORAL ACTIVE 08/17/2025 [id number] 5 [facility] 2023 90 [place] [facility] HYDROXYZINE HCL 10MG TAB TAKE ONE TABLET BY MOUTH AT BEDTIME FOR ANXIETY *MAY CAUSE DROWSINE SS* ORAL 11/03/2024 [id number] 4 [facility] 2023 90 [facility] KETOCONAZOL E 2 % TOP SHAM [120ML] USE SHAMPOO TO AFFECTED AREA(S) ONCE A DAY FOR SEBORRHE IC DERMATIT IS (EXTERNA L USE ONLY) (SHAKE WELL) 02/10/2025 [id number] 4 [facility] VIVIAN 2023 240 [facility] KETOCONAZOL E 2% CREAM,TOP APPLY SMALL AMOUNT TO AFFECTED AREA(S) THREE TIMES PER WEEK (EXTERNA L USE ONLY) TOPICA L ACTIVE 09/14/2025 [id number] 4 JENNIFER RAMÍREZ A 2023 30 [place] [facility] KETOCONAZOL E 2% SHAMPOO USE SHAMPOO TO AFFECTED AREA(S) ONCE A DAY FOR SEBORRHE IC DERMATIT IS (EXTERNA L USE ONLY) (SHAKE WELL) TOPICA L 02/10/2025 [id number] 4 [facility] VIVIAN 2023 240 [facility] METOPROLOL TARTRATE 100MG TAB TAKE ONE-HALF TABLET BY MOUTH TWICE A DAY FOR HIGH BLOOD PRESSURE TAKE WITH OR IMMEDIAT TANIKA FOLLOWIN G FOOD. ORAL ACTIVE 08/17/2025 [id number] 5 SOURAV, VIVIAN 2023 90 [facility] PANTOPRAZOL E NA 40MG TAB,EC TAKE ONE TABLET BY MOUTH EVERY MORNING BEFORE A MEAL FOR GASTROES OPHAGEAL REFLUX DISEASE TAKE 30 MINUTES BEFORE MEAL(S) ORAL ACTIVE 08/18/2025 [id number] 5 SOURAV, VIVIAN 2023 90 [facility] TAMSULOSIN HCL 0.4MG CAP TAKE TWO CAPSULES BY MOUTH EVERY EVENING FOR BENIGN PROSTATI C HYPERPLA SARAHI APPROXIM ATELY 30 MINUTES AFTER THE SAME MEAL EACH DAY ORAL ACTIVE 08/06/2025 [id number] 5 SOURAV, VIVIAN 2023 180 [facility] TRAMADOL HCL 50MG TAB TAKE 2 TABLETS BY MOUTH TWICE A DAY FOR PAIN ORAL ACTIVE 10/14/2025 [id number] 5 Vivian BLUNT Q 2024 120 [facility] TRAMADOL HCL 50MG TAB TAKE 2 TABLETS BY MOUTH TWICE A DAY FOR PAIN ORAL DISCONT INUED BY PROVIDE R 03/22/2025 [id number] 5 VIVIAN BENJAMIN [address] [facility] Allergies, Adverse Reactions, Alerts Combined list of allergies from [facility] and Veterans Affairs facilities. It does not include entries that were removed or entered in error. Substance Category Reaction Severity Reaction type Status Date Reported Comments Source GABAPENTIN Propensity to adverse reactions to drug (finding) active 5 [facility] Immunizations Combined list of available immunizations from the Department [facility] and Veterans Affairs facilities. Immunization Series Date Given Administered By Site Reaction Lot Number CVX Code Drug Manager Sql Status Comments Source INFLUENZA, UNSPECIFIED FORMULATION 2019 88 complet ed [facility] INFLUENZA, UNSPECIFIED FORMULATION 2018 88 complet ed [facility] PNEUMOCOCCAL POLYSACCHARID E PPV23 [address] [facility] TD (ADULT), 5 LF TETANUS TOXOID, PRESERVATIVE FREE, ADSORBED 2018 113 complet ed [facility] PNEUMOC[facility]CC[facility] CONJUGATE PCV 13 2014 133 complet ed [facility] TD[facility] 2007 115 complet ed [facility] PNEUMOCOCCAL, UNSPECIFIED FORMULATION 2002 NONE 109 complet ed Right Deltoid [facility] TD(ADULT) UNSPECIFIED FORMULATION 2000 139 complet ed [facility] Results Combined list of recent chemistry, hematology and other laboratory results from Department of [facility] and Veterans Affairs, ranging from 15 months to all on record, depending upon the facility. Order Name Results Value Reference Range Date Interpretation Specimen Comments Source URINALYSIS W/ CX REFLEX (STL-PB) COLOR OF URINE Brown 04/18 Specimen Type: URINE Comment: visually checked color Ordering Provider: VIVIAN BENJAMIN Report Released Date/Time : Apr 18, 2025 12:10 PM Reporting Lab: [place] [facility] [address] [place] [address] Performin g Lab: [place] [facility] [address] [place] [address] [facility] URINALYSIS W/ CX REFLEX (STL-PB) BILIRUBIN.T OTAL [PRESENCE] IN URINE BY TEST STRIP NEGATIVEm g/dL 04/18 Specimen Type: URINE Comment: visually checked color Ordering Provider: VIVIAN BENJAMIN Report Released Date/Time : Apr 18, 2025 12:10 PM Reporting Lab: [place] [facility] [address] [place] [address] Performin g Lab: [place] [facility] [address] [place] [address] [facility] URINALYSIS W/ CX REFLEX (STL-PB) PH OF URINE BY TEST STRIP 6.0 5.0 - 8.0 04/18 Specimen Type: URINE Comment: visually checked color Ordering Provider: VIVIAN BENJAMIN Report Released Date/Time : Apr 18, 2025 12:10 PM Reporting Lab: [place] [facility] [address] [place] [address] Performin g Lab: [place] [facility] [address] [place] [address] [facility] URINALYSIS W/ CX REFLEX (STL-PB) ERYTHROCYTE S [#/VOLUME] IN URINE SEDIMENT BY MICROSCOPY HIGH POWER FIELD 2153 /[HPF] 0 - 5 04/18 H Specimen Type: URINE Comment: visually checked color Ordering Provider: VIVIAN BENJAMIN Report Released Date/Time : Apr 18, 2025 12:10 PM Reporting Lab: [place] [facility] [address] [place] [address] Performin g Lab: [place] [facility] [address] [place] [address] [facility] URINALYSIS W/ CX REFLEX (STL-PB) APPEARANCE OF URINE TURBID 04/18 H Specimen Type: URINE Comment: visually checked color Ordering Provider: VIVIAN BENJAMIN Report Released Date/Time : Apr 18, 2025 12:10 PM Reporting Lab: [place] [facility] [address] [place] [address] Performin g Lab: [place] [facility] [address] [place] [address] [facility] URINALYSIS W/ CX REFLEX (STL-PB) NITRITE [PRESENCE] IN URINE BY TEST STRIP NEGATIVEm g/dL 04/18 Specimen Type: URINE Comment: visually checked color Ordering Provider: VIVIAN BENJAMIN Report Released Date/Time : Apr 18, 2025 12:10 PM Reporting Lab: [place] [facility] [address] [place] [address] Performin g Lab: [place] [facility] [address] [place] [address] [facility] URINALYSIS W/ CX REFLEX (STL-PB) MUCUS [PRESENCE] IN URINE SEDIMENT BY LIGHT MICROSCOPY MANY/[LPF ] 04/18 H Specimen Type: URINE Comment: visually checked color Ordering Provider: VIVIAN BENJAMIN Report Released Date/Time : Apr 18, 2025 12:10 PM Reporting Lab: [place] [facility] [address] [place] [address] Performin g Lab: [place] [facility] [address] [place] [address] [facility] URINALYSIS W/ CX REFLEX (STL-PB) GLUCOSE [MASS/VOLUM E] IN URINE BY TEST STRIP NORMALmg/ dL 04/18 Specimen Type: URINE Comment: visually checked color Ordering Provider: VIVIAN BENJAMIN Report Released Date/Time : Apr 18, 2025 12:10 PM Reporting Lab: [place] [facility] [address] [place] [address] Performin g Lab: [place] [facility] [address] [place] [address] [facility] URINALYSIS W/ CX REFLEX (STL-PB) PROTEIN [MASS/VOLUM E] IN URINE BY TEST STRIP 70 mg/dL 04/18 H Specimen Type: URINE Comment: visually checked color Ordering Provider: VIVIAN BENJAMIN Report Released Date/Time : Apr 18, 2025 12:10 PM Reporting Lab: [place] [facility] [address] [place] [address] Performin g Lab: [place] [facility] [address] [place] [address] [facility] URINALYSIS W/ CX REFLEX (STL-PB) URN.UROBILI NOGEN NORMALmg/ dL 04/18 Specimen Type: URINE Comment: visually checked color Ordering Provider: VIVIAN BENJAMIN Report Released Date/Time : Apr 18, 2025 12:10 PM Reporting Lab: [place] [facility] [address] [place] [address] Performin g Lab: [place] [facility] [address] [place] [address] [facility] URINALYSIS W/ CX REFLEX (STL-PB) HEMOGLOBIN [MASS/VOLUM E] IN URINE BY TEST STRIP 3+mg/dL 04/18 H Specimen Type: URINE Comment: visually checked color Ordering Provider: VIVIAN BENJAMIN Report Released Date/Time : Apr 18, 2025 12:10 PM Reporting Lab: [place] [facility] [address] [place] [address] Performin g Lab: [place] [facility] [address] [place] [address] [facility] URINALYSIS W/ CX REFLEX (STL-PB) KETONES [MASS/VOLUM E] IN URINE BY TEST STRIP NEGATIVEm g/dL 04/18 Specimen Type: URINE Comment: visually checked color Ordering Provider: VIVIAN BENJAMIN Report Released Date/Time : Apr 18, 2025 12:10 PM Reporting Lab: [place] [facility] [address] [place] [address] Performin g Lab: [place] [facility] [address] [place] [address] [facility] URINALYSIS W/ CX REFLEX (STL-PB) URN.LEUK.ES T. 25 04/18 Specimen Type: URINE Comment: visually checked color Ordering Provider: VIVIAN BENJAMIN Report Released Date/Time : Apr 18, 2025 12:10 PM Reporting Lab: [place] [facility] [address] [place] [address] Performin g Lab: [place] [facility] [address] [place] [address] [place] [facility] URINALYSIS W/ CX REFLEX (STL-PB) SPECIFIC GRAVITY OF URINE 1.020 1.005 - 1.029 04/18 Specimen Type: URINE Comment: visually checked color Ordering Provider: VIVIAN BENJAMIN Report Released Date/Time : Apr 18, 2025 12:10 PM Reporting Lab: [place] [facility] [address] [place] [address] Performin g Lab: [place] [facility] [address] [place] [address] [place] [facility] POC UA (STL-PB-MA ) PROTEIN [MASS/VOLUM E] IN URINE BY TEST STRIP 100 mg/dL 04/18 Specimen Type: URINE No comment entered. Ordering Provider: VIVIAN BENJAMIN Report Released Date/Time : Apr 18, 2025 11:36 AM Reporting Lab: [facility] [address] [facility] [address] Performin g Lab: [place] [facility] [address] [facility] [address] [facility] POC UA (STL-PB-MA ) HEMOGLOBIN [MASS/VOLUM E] IN URINE BY TEST STRIP Large 04/18 Specimen Type: URINE No comment entered. Ordering Provider: VIVIAN BENJAMIN Report Released Date/Time : Apr 18, 2025 11:36 AM Reporting Lab: [facility] [address] [facility] [address] Performin g Lab: [place] [facility] [address] [facility] [address] [facility] POC UA (STL-PB-MA ) LEUKOCYTES [PRESENCE] IN URINE Negative 04/18 Specimen Type: URINE No comment entered. Ordering Provider: VIVIAN BENJAMIN Report Released Date/Time : Apr 18, 2025 11:36 AM Reporting Lab: [place] [facility] [address] [facility] [address] Performin g Lab: [facility] [address] [facility] [address] [facility] POC UA (STL-PB-MA ) COLOR OF URINE Brown 04/18 Specimen Type: URINE No comment entered. Ordering Provider: VIVIAN BENJAMIN Report Released Date/Time : Apr 18, 2025 11:36 AM Reporting Lab: [facility] [address] [facility] [address] [facility] [address] Performin g Lab: [facility] [address] [facility] [address] [facility] [address] [facility] POC UA (STL-PB-MA ) SPECIFIC GRAVITY OF URINE 1.025 1.005 - 1.030 04/18 Specimen Type: URINE No comment entered. Ordering Provider: VIVIAN BENJAMIN Report Released Date/Time : Apr 18, 2025 11:36 AM Reporting Lab: [facility] [address] [facility] [address] [facility] [address] Performin g Lab: [facility] [address] [facility] [address] [facility] POC UA (STL-PB-MA ) UROBILINOGE N [UNITS/VOLU ME] IN URINE 1.0 {Bindu' U}/dL 0.1 - 1.0 04/18 Specimen Type: URINE No comment entered. Ordering Provider: VIVIAN BENJAMIN Report Released Date/Time : Apr 18, 2025 11:36 AM Reporting Lab: [facility] [address] [facility] [address] [facility] [address] Performin g Lab: [facility] [address] [facility] [address] [facility] [address] [facility] POC UA (STL-PB-MA ) BILIRUBIN.T OTAL [PRESENCE] IN URINE Negative 04/18 Specimen Type: URINE No comment entered. Ordering Provider: VIVIAN BENJAMIN Report Released Date/Time : Apr 18, 2025 11:36 AM Reporting Lab: [facility] [address] [facility] [address] [facility] [address] Performin g Lab: [facility] [address] [facility] [address] [facility] [address] [facility] POC UA (STL-PB-MA ) KETONES [MASS/VOLUM E] IN URINE BY TEST STRIP Negativem g/dL 04/18 Specimen Type: URINE No comment entered. Ordering Provider: VIVIAN EBNJAMIN Report Released Date/Time : Apr 18, 2025 11:36 AM Reporting Lab: [place] [facility] [address] [facility] [address] Performin g Lab: [place] [facility] [address] [place] [address] [facility] POC UA (STL-PB-MA ) GLUCOSE [MASS/VOLUM E] IN URINE BY TEST STRIP Negativem g/dL 04/18 Specimen Type: URINE No comment entered. Ordering Provider: VIVIAN BENJAMIN Report Released Date/Time : Apr 18, 2025 11:36 AM Reporting Lab: [place] [facility] [address] [facility] [address] Performin g Lab: [facility] [address] [facility] [address] [facility] [phone] [facility] POC UA (STL-PB-MA ) PH OF URINE 6.0 5.0 - 8.0 04/18 Specimen Type: URINE No comment entered. Ordering Provider: VIVIAN BENJAMIN Report Released Date/Time : Apr 18, 2025 11:36 AM Reporting Lab: [facility] [address] [facility] [phone] Performin g Lab: [facility] [address] [facility] [address] [facility] [phone] [facility] POC UA (STL-PB-MA ) NITRITE [PRESENCE] IN URINE BY TEST STRIP Negative 04/18 Specimen Type: URINE No comment entered. Ordering Provider: VIVIAN BENJAMIN Report Released Date/Time : Apr 18, 2025 11:36 AM Reporting Lab: [facility] [address] [place] [address] Performin g Lab: [facility] [address] [facility] [address] [place] [facility] POC UA (STL-PB-MA ) CLARITY OF URINE Turbid 04/18 Specimen Type: URINE No comment entered. Ordering Provider: VIVIAN BENJAMIN Report Released Date/Time : Apr 18, 2025 11:36 AM Reporting Lab: [facility] [address] [facility] [address] Performin g Lab: [facility] [address] [facility] [address] [facility] CBC LEUKOCYTES [#/VOLUME] IN BLOOD BY AUTOMATED COUNT 7.9 10*3/uL 3.6 - 11.2 04/18 Specimen Type: BLOOD No comment entered. Ordering Provider: VIVIAN BENJAMIN Report Released Date/Time : Apr 18, 2025 11:28 AM Reporting Lab: [place] [facility] [address] [place] [address] [facility]: [place] [facility] [address] [place] [address] [facility] CBC ERYTHROCYTE S [#/VOLUME] IN BLOOD BY AUTOMATED COUNT 3.81 10*6/uL 4.10 - 5.70 04/18 L Specimen Type: BLOOD No comment entered. Ordering Provider: VIVIAN BENJAMIN Report Released Date/Time : Apr 18, 2025 11:28 AM Reporting Lab: [place] [facility] [address] [place] [address] [facility]: [place] [facility] [address] [place] [address] [facility] CBC HEMOGLOBIN [MASS/VOLUM E] IN BLOOD 13.5 g/dL 13.1 - 16.8 04/18 Specimen Type: BLOOD No comment entered. Ordering Provider: VIVIAN BENJAMIN Report Released Date/Time : Apr 18, 2025 11:28 AM Reporting Lab: [place] [facility] [address] [place] [address] [facility]: [place] [facility] [address] [place] [address] [facility] CBC HEMATOCRIT [VOLUME FRACTION] OF BLOOD 39.3 38.2 - 48.4 04/18 Specimen Type: BLOOD No comment entered. Ordering Provider: VIVIAN BENJAMIN Report Released Date/Time : Apr 18, 2025 11:28 AM Reporting Lab: [place] [facility] [address] [place] [address] [facility]: [place] [facility] [address] [place] [address] [facility] CBC MCV [ENTITIC VOLUME] BY AUTOMATED COUNT 103.1 fL 80.0 - 100.0 04/18 H Specimen Type: BLOOD No comment entered. Ordering Provider: VIVIAN BENJAMIN Report Released Date/Time : Apr 18, 2025 11:28 AM Reporting Lab: [place] [facility] [address] [place] [address] [place]: [place] [facility] [address] [place] [address] [facility] CBC MCH [ENTITIC MASS] BY AUTOMATED COUNT 35.4 pg 27.0 - 34.0 04/18 H Specimen Type: BLOOD No comment entered. Ordering Provider: VIVIAN BENJAMIN Report Released Date/Time : Apr 18, 2025 11:28 AM Reporting Lab: [place] [facility] [address] [place] [address] 8 [place]formin [facility] [place]: [place] [facility] [address] [place] [address] [facility] CBC MCHC [MASS/VOLUM E] BY AUTOMATED COUNT 34.4 g/dL 33.0 - 36.0 04/18 Specimen Type: BLOOD No comment entered. Ordering Provider: VIVIAN BENJAMIN Report Released Date/Time : Apr 18, 2025 11:28 AM Reporting Lab: [place] [facility] [address] [place] [address] 8 [place]formin [facility] Lab: [place] [facility] [address] [place] [address] [facility] CBC PLATELETS [#/VOLUME] IN BLOOD BY AUTOMATED COUNT 151 10*3/uL 150 - 400 04/18 Specimen Type: BLOOD No comment entered. Ordering Provider: VIVIAN BENJAMIN Report Released Date/Time : Apr 18, 2025 11:28 AM Reporting Lab: [place] [facility] [address] [place] [address] 8 [place]formin g Lab: [place] [facility] [address] [place] [address] [facility] CBC PLATELET MEAN VOLUME [ENTITIC VOLUME] IN BLOOD BY AUTOMATED COUNT 12.0 fL 7.5 - 11.2 04/18 H Specimen Type: BLOOD No comment entered. Ordering Provider: VIVIAN BENJAMIN Report Released Date/Time : Apr 18, 2025 11:28 AM Reporting Lab: [place] [facility] [address] [place] [address] 8 [place] [place]: [place] [facility] [address] [place] [address] [facility] CBC ERYTHROCYTE DISTRIBUTIO N WIDTH [RATIO] BY AUTOMATED COUNT <11.8 11.8 - 15.1 04/18 Specimen Type: BLOOD No comment entered. Ordering Provider: VIVIAN BENJAMIN Report Released Date/Time : Apr 18, 2025 11:28 AM Reporting Lab: [place] [facility] [address] [place] [address] 8 [place]formin g Lab: [place] [facility] [address] [place] [address] [facility] CBC LYMPHOCYTES /100 LEUKOCYTES IN BLOOD BY AUTOMATED COUNT 16.8 04/18 Specimen Type: BLOOD No comment entered. Ordering Provider: VIVIAN BENJAMIN Report Released Date/Time : Apr 18, 2025 11:28 AM Reporting Lab: [place] [facility] [address] [place] [address] 8 [place]formin g Lab: [place] [facility] [address] [place] [address] [facility] CBC MONOCYTES/1 00 LEUKOCYTES IN BLOOD BY AUTOMATED COUNT 6.3 04/18 Specimen Type: BLOOD No comment entered. Ordering Provider: VIVIAN BENJAMIN Report Released Date/Time : Apr 18, 2025 11:28 AM Reporting Lab: [place] [facility] [address] [place] [address] 8 [place]formin g Lab: [place] [facility] [address] [place] [address] 8 [facility] CBC NEUTROPHILS /100 LEUKOCYTES IN BLOOD BY AUTOMATED COUNT 74.3 04/18 Specimen Type: BLOOD No comment entered. Ordering Provider: VIVIAN BENJAMIN Report Released Date/Time : Apr 18, 2025 11:28 AM Reporting Lab: [place] [facility] [address] [place] [address] 8 [place]formin g Lab: [place] [facility] [address] [place] [address] 8 [facility] CBC EOSINOPHILS /100 LEUKOCYTES IN BLOOD BY AUTOMATED COUNT 1.8 04/18 Specimen Type: BLOOD No comment entered. Ordering Provider: VIVIAN BENJAMIN Report Released Date/Time : Apr 18, 2025 11:28 AM Reporting Lab: [place] [facility] [address] [place] [address] 8 [place]formin g Lab: [place] [facility] [address] [place] [address] [facility] CBC BASOPHILS/1 00 LEUKOCYTES IN BLOOD BY AUTOMATED COUNT 0.5 04/18 Specimen Type: BLOOD No comment entered. Ordering Provider: VIVIAN BENJAMIN Report Released Date/Time : Apr 18, 2025 11:28 AM Reporting Lab: [place] [facility] [address] [place] [address] 8 [place]formin g Lab: [place] [facility] [address] [place] [address] [facility] CBC LYMPHOCYTES [#/VOLUME] IN BLOOD BY AUTOMATED COUNT 1.33 10*3/uL 0.77 - 4.50 04/18 Specimen Type: BLOOD No comment entered. Ordering Provider: VIVIAN BENJAMIN Report Released Date/Time : Apr 18, 2025 11:28 AM Reporting Lab: [place] [facility] [address] [place] [address] 8 [place]formin g Lab: [place] [facility] [address] [place] [address] 8 [facility] CBC MONOCYTES [#/VOLUME] IN BLOOD BY AUTOMATED COUNT 0.50 10*3/uL 0.19 - 0.8 04/18 Specimen Type: BLOOD No comment entered. Ordering Provider: VIVIAN BENJAMIN Report Released Date/Time : Apr 18, 2025 11:28 AM Reporting Lab: [place] [facility] [address] [place] [address] 8 [place]formin g Lab: [place] [facility] [address] [place] [address] 8 [facility] CBC NEUTROPHILS [#/VOLUME] IN BLOOD BY AUTOMATED COUNT 5.91 10*3/uL 2.10 - 8.00 04/18 Specimen Type: BLOOD No comment entered. Ordering Provider: VIVIAN BENJAMIN Report Released Date/Time : Apr 18, 2025 11:28 AM Reporting Lab: [place] [facility] [address] [place] [address] 8 [place]formin g Lab: [place] [facility] [address] [place] [address] 8 [facility] CBC EOSINOPHILS [#/VOLUME] IN BLOOD BY AUTOMATED COUNT 0.14 10*3/uL 0.00 - 0.60 04/18 Specimen Type: BLOOD No comment entered. Ordering Provider: VIVIAN BENJAMIN Report Released Date/Time : Apr 18, 2025 11:28 AM Reporting Lab: [place] [facility] [address] [place] [address] 8 [place]formin g Lab: [place] [facility] [address] [place] [address] 8 [facility] CBC BASOPHILS [#/VOLUME] IN BLOOD BY AUTOMATED COUNT 0.04 10*3/uL 0.00 - 0.20 04/18 Specimen Type: BLOOD No comment entered. Ordering Provider: VIVIAN BENJAMIN Report Released Date/Time : Apr 18, 2025 11:28 AM Reporting Lab: [place] [facility] [address] [place] [address] 8 Performin g Lab: [place] [facility] [address] [place] [address] [facility] CBC IMMATURE GRANULOCYTE S/100 LEUKOCYTES IN BLOOD BY AUTOMATED COUNT 0.3 04/18 Specimen Type: BLOOD No comment entered. Ordering Provider: VIVIAN BENJAMIN Report Released Date/Time : Apr 18, 2025 11:28 AM Reporting Lab: [place] [facility] [address] [place] [address] Performin g Lab: [place] [facility] [address] [place] [address] [facility] CBC IMMATURE GRANULOCYTE S [#/VOLUME] IN BLOOD BY AUTOMATED COUNT 0.02 10*3/uL 0.00 - 0.05 04/18 Specimen Type: BLOOD No comment entered. Ordering Provider: VIVIAN BENJAMIN Report Released Date/Time : Apr 18, 2025 11:28 AM Reporting Lab: [place] [facility] [address] [place] [address] [place]formin g Lab: [place] [facility] [address] [place] [address] [facility] HGA1C HEMOGLOBIN A1C/HEMOGLO BIN.TOTAL IN BLOOD 5.6 4.0 - 6.0 09/19 Specimen Type: BLOOD No comment entered. Ordering Provider: VIVIAN BENJAMIN Report Released Date/Time : Oct 05, 2023 03:43 PM Reporting Lab: [place] [facility] [address] [place] [address] [place]formin g Lab: [place] [facility] [address] [place] [address] [facility] TSH (MA-PB) THYROTROPIN [UNITS/VOLU ME] IN SERUM OR PLASMA 3.126 u[IU]/mL 0.47 - 5 09/19 Specimen Type: SERUM No comment entered. Ordering Provider: VIVIAN BENJAMIN Report Released Date/Time : Oct 05, 2023 03:43 PM Reporting Lab: [place] [facility] [address] [place] [address] 8 Performin g Lab: [place] [facility] [address] [place] [address] 8 [facility] COMPREHENS JOON METABOLIC PANEL CREATININE [MASS/VOLUM E] IN SERUM OR PLASMA 1.22 mg/dL 0.7 - 1.3 09/19 Specimen Type: PLASMA No comment entered. Ordering Provider: VIVIAN BENJAMIN Report Released Date/Time : Oct 05, 2023 03:43 PM Reporting Lab: [place] [facility] [address] [place] [address] 8 [place]formin g Lab: [place] [facility] [address] [place] [address] [facility] COMPREHENS JOON METABOLIC PANEL UREA NITROGEN [MASS/VOLUM E] IN SERUM OR PLASMA 14 mg/dL 9 - 25 09/19 Specimen Type: PLASMA No comment entered. Ordering Provider: VIVIAN BENJAMIN Report Released Date/Time : Oct 05, 2023 03:43 PM Reporting Lab: [place] [facility] [address] [place] [address] 8 [place]formin g Lab: [place] [facility] [address] [place] [address] 8 [facility] COMPREHENS JOON METABOLIC PANEL GLUCOSE [MASS/VOLUM E] IN SERUM OR PLASMA 97 mg/dL 72 - 99 09/19 Specimen Type: PLASMA No comment entered. Ordering Provider: VIVIAN BENJAMIN Report Released Date/Time : Oct 05, 2023 03:43 PM Reporting Lab: [place] [facility] [address] [place] [address] 8 [place]formin g Lab: [place] [facility] [address] [place] [address] 8 [facility] COMPREHENS JOON METABOLIC PANEL SODIUM [MOLES/VOLU ME] IN SERUM OR PLASMA 138 meq/L 136 - 145 09/19 Specimen Type: PLASMA No comment entered. Ordering Provider: VIVIAN BENJAMIN Report Released Date/Time : Oct 05, 2023 03:43 PM Reporting Lab: [place] [facility] [address] [place] [address] 8 [place]formin g Lab: [place] [facility] [address] [place] [address] 8 [facility] COMPREHENS JOON METABOLIC PANEL POTASSIUM [MOLES/VOLU ME] IN SERUM OR PLASMA 4.3 meq/L 3.5 - 5 09/19 Specimen Type: PLASMA No comment entered. Ordering Provider: VIVIAN BENJAMIN Report Released Date/Time : Oct 05, 2023 03:43 PM Reporting Lab: [place] [facility] [address] [place] [address] 8 [place]formin g Lab: [place] [facility] [address] [place] [address] 8 [facility] COMPREHENS JOON METABOLIC PANEL CHLORIDE [MOLES/VOLU ME] IN SERUM OR PLASMA 103 meq/L 98 - 107 09/19 Specimen Type: PLASMA No comment entered. Ordering Provider: VIVIAN BENJAMIN Report Released Date/Time : Oct 05, 2023 03:43 PM Reporting Lab: [place] [facility] [address] [place] [address] 8 [place]formin g Lab: [place] [facility] [address] [place] [address] 8 [facility] COMPREHENS JOON METABOLIC PANEL CARBON DIOXIDE, TOTAL [MOLES/VOLU ME] IN SERUM OR PLASMA 25 meq/L 22 - 31 09/19 Specimen Type: PLASMA No comment entered. Ordering Provider: VIVIAN BENJAMIN Report Released Date/Time : Oct 05, 2023 03:43 PM Reporting Lab: [place] [facility] [address] [place] [address] 8 [place]formin g Lab: [place] [facility] [address] [place] [address] 8 [facility] COMPREHENS JOON METABOLIC PANEL CALCIUM [MASS/VOLUM E] IN SERUM OR PLASMA 9.3 mg/dL 8.4 - 10.4 09/19 Specimen Type: PLASMA No comment entered. Ordering Provider: VIVIAN BENJAMIN Report Released Date/Time : Oct 05, 2023 03:43 PM Reporting Lab: [place] [facility] [address] [place] [address] 8 [place]formin g Lab: [place] [facility] [address] [place] [address] 8 [facility] COMPREHENS JOON METABOLIC PANEL PROTEIN [MASS/VOLUM E] IN SERUM OR PLASMA 7.4 g/dL 6 - 8.6 09/19 Specimen Type: PLASMA No comment entered. Ordering Provider: VIVIAN BENJAMIN Report Released Date/Time : Oct 05, 2023 03:43 PM Reporting Lab: [place] [facility] [address] [place] [address] 8 [place]formin g Lab: [place] [facility] [address] [place] [address] 8 [facility] COMPREHENS JOON METABOLIC PANEL ALBUMIN [MASS/VOLUM E] IN SERUM OR PLASMA 4.2 g/dL 3.4 - 5 09/19 Specimen Type: PLASMA No comment entered. Ordering Provider: VIVIAN BENJAMIN Report Released Date/Time : Oct 05, 2023 03:43 PM Reporting Lab: [place] [facility] [address] [place] [address] 8 [place]formin g Lab: [place] [facility] [address] [place] [address] 8 [facility] COMPREHENS JOON METABOLIC PANEL BILIRUBIN.T OTAL [MASS/VOLUM E] IN SERUM OR PLASMA 1.5 mg/dL 0.2 - 1.2 09/19 H Specimen Type: PLASMA No comment entered. Ordering Provider: VIVIAN BENJAMIN Report Released Date/Time : Oct 05, 2023 03:43 PM Reporting Lab: [place] [facility] [address] [place] [address] 8 [place]formin g Lab: [place] [facility] [address] [place] [address] 8 [facility] COMPREHENS JOON METABOLIC PANEL ALKALINE PHOSPHATASE [ENZYMATIC ACTIVITY/VO LUME] IN SERUM OR PLASMA 126 U/L 40 - 150 09/19 Specimen Type: PLASMA No comment entered. Ordering Provider: VIVIAN BENJAMIN Report Released Date/Time : Oct 05, 2023 03:43 PM Reporting Lab: [place] [facility] [address] [place] [address] 8 [place]formin g Lab: [place] [facility] [address] [place] [address] 8 [place] [facility] COMPREHENS JOON METABOLIC PANEL ASPARTATE AMINOTRANSF ERASE [ENZYMATIC ACTIVITY/VO LUME] IN SERUM OR PLASMA 22 U/L 5 - 34 09/19 Specimen Type: PLASMA No comment entered. Ordering Provider: VIVIAN BENJAMIN Report Released Date/Time : Oct 05, 2023 03:43 PM Reporting Lab: [place] [facility] [address] [place] [address] 8 Performin g Lab: [place] [facility] [address] [place] [address] 8 [facility] COMPREHENS JOON METABOLIC PANEL ALANINE AMINOTRANSF ERASE [ENZYMATIC ACTIVITY/VO LUME] IN SERUM OR PLASMA 17 U/L 8 - 40 09/19 Specimen Type: PLASMA No comment entered. Ordering Provider: VIVIAN BENJAMIN Report Released Date/Time : Oct 05, 2023 03:43 PM Reporting Lab: [place] [facility] [address] [place] [address] 8 [place]formin g Lab: [place] [facility] [address] [place] [address] 8 [facility] COMPREHENS JOON METABOLIC PANEL GLOMERULAR FILTRATION RATE/1.73 SQ M.PREDICTED [VOLUME RATE/AREA] IN SERUM, PLASMA OR BLOOD BY CREATININE- BASED FORMULA (CKD-EPI 2020) 58 09/19 Specimen Type: PLASMA No comment entered. Ordering Provider: VIVIAN BENJAMIN Report Released Date/Time : Oct 05, 2023 03:43 PM Reporting Lab: [place] [facility] [address] [place] [address] 8 [facility]formin g Lab: [place] [facility] [address] [place] [address] 8 [facility] IRON IRON [MASS/VOLUM E] IN SERUM OR PLASMA 103 ug/dL 65 - 175 09/19 Specimen Type: PLASMA No comment entered. Ordering Provider: VIVIAN BENJAMIN Report Released Date/Time : Aug 16, 2024 01:08 PM Reporting Lab: [place] [facility] [address] [place] [address] 8 [facility]formin g Lab: [place] [facility] [address] [place] [address] 8 [facility] CHOLESTERO L PANEL (PB) CHOLESTEROL [MASS/VOLUM E] IN SERUM OR PLASMA 187 mg/dL 0 - 200 09/19 Specimen Type: PLASMA No comment entered. Ordering Provider: VIVIAN BENJAMIN Report Released Date/Time : Oct 05, 2023 03:43 PM Reporting Lab: [place] [facility] [address] [place] [address] 8 [facility]formin g Lab: [place] [facility] [address] [place] [address] 8 [facility] CHOLESTERO L PANEL (PB) TRIGLYCERID E [MASS/VOLUM E] IN SERUM OR PLASMA 127 mg/dL 0 - 150 09/19 Specimen Type: PLASMA No comment entered. Ordering Provider: VIVIAN BENJAMIN Report Released Date/Time : Oct 05, 2023 03:43 PM Reporting Lab: [place] [facility] [address] [place] [address] 8 [facility]formin g Lab: [place] [facility] [address] [place] [address] 8 [facility] CHOLESTERO L PANEL (PB) CHOLESTEROL IN LDL [MASS/VOLUM E] IN SERUM OR PLASMA BY CALCULATION 117.1 mg/dL 09/19 Specimen Type: PLASMA No comment entered. Ordering Provider: VIVIAN BENJAMIN Report Released Date/Time : Oct 05, 2023 03:43 PM Reporting Lab: [place] [facility] [address] [place] [address] Performin g Lab[facility] [place] [facility] [address] [place] [address] [facility] CHOLESTERO L PANEL (PB) CHOLESTEROL IN HDL [MASS/VOLUM E] IN SERUM OR PLASMA 44.5 mg/dL 40 09/19 H Specimen Type: PLASMA No comment entered. Ordering Provider: VIVIAN BENJAMIN Report Released Date/Time : Oct 05, 2023 03:43 PM Reporting Lab: [place] [facility] [address] [place] [address] Performin g Lab: [place] [facility] [address] [place] [address] [facility] CHOLESTERO L PANEL (PB) CHOLESTEROL IN HDL/CHOLEST EDMOND.TOTAL [MASS RATIO] IN SERUM OR PLASMA 23.8 25 09/19 Specimen Type: PLASMA No comment entered. Ordering Provider: VIVIAN BENJAMIN Report Released Date/Time : Oct 05, 2023 03:43 PM Reporting Lab: [place] [facility] [address] [place] [address] Performin g Lab: [place] [facility] [address] [place] [address] [facility] DRUG SCREEN URINE-inho use (PB) OPIATES [PRESENCE] IN URINE BY SCREEN METHOD Negative 09/19 Specimen Type: URINE No comment entered. Ordering Provider: VIVIAN BENJAMIN Report Released Date/Time : Sep 15, 2024 03:14 PM Reporting Lab: [place] [facility] [address] [place] [address] Performin g Lab: [place] [facility] [address] [place] [address] [facility] DRUG SCREEN URINE-inho use (PB) COCAINE [PRESENCE] IN URINE Negative 09/19 Specimen Type: URINE No comment entered. Ordering Provider: VIVIAN BENJAMIN Report Released Date/Time : Sep 15, 2024 03:14 PM Reporting Lab: [place] [facility] [address] [place] [address] Performin g Lab: [place] [facility] [address] [place] [address] [facility] DRUG SCREEN URINE-inho use (PB) TETRAHYDROC ANNABINOL [PRESENCE] IN URINE BY SCREEN METHOD Negative 09/19 Specimen Type: URINE No comment entered. Ordering Provider: VIVIAN BENJAMIN Report Released Date/Time : Sep 15, 2024 03:14 PM Reporting Lab: [place] [facility] [address] [place] [address] Performin g Lab: [place] [facility] [address] [place] [address] [facility] DRUG SCREEN URINE-inho use (PB) PHENCYCLIDI NE [PRESENCE] IN URINE Negative 09/19 Specimen Type: URINE No comment entered. Ordering Provider: VIVIAN BENJAMIN Report Released Date/Time : Sep 15, 2024 03:14 PM Reporting Lab: [place] [facility] [address] [place] [address] Performin g Lab: [place] [place] [facility] [address] [place] [address] [facility] DRUG SCREEN URINE-inho use (PB) BENZODIAZEP ROSE [PRESENCE] IN URINE BY SCREEN METHOD Negative 09/19 Specimen Type: URINE No comment entered. Ordering Provider: VIVIAN BENJAMIN Report Released Date/Time : Sep 15, 2024 03:14 PM Reporting Lab: [place] [facility] [address] [place] [address] Performin g Lab: [place] [facility] [address] [place] [address] [facility] DRUG SCREEN URINE-inho use (PB) BARBITURATE S [PRESENCE] IN URINE Negative 09/19 Specimen Type: URINE No comment entered. Ordering Provider: VIVIAN BENJAMIN Report Released Date/Time : Sep 15, 2024 03:14 PM Reporting Lab: [place] [facility] [address] [place] [address] Performin g Lab: [place] [facility] [address] [place] [address] [facility] DRUG SCREEN URINE-inho use (PB) AMPHETAMINE [PRESENCE] IN URINE BY SCREEN METHOD Negative 09/19 Specimen Type: URINE No comment entered. Ordering Provider: VIVIAN BENJAMIN Report Released Date/Time : Sep 15, 2024 03:14 PM Reporting Lab: [place] [facility] [address] [place] [address] Performin g Lab: [place] [facility] [address] [place] [address] [facility] DRUG SCREEN URINE-inho use (PB) CREATININE [MASS/VOLUM E] IN URINE 31.39 mg/dL 09/19 Specimen Type: URINE No comment entered. Ordering Provider: VIVIAN BENJAMIN Report Released Date/Time : Sep 15, 2024 03:14 PM Reporting Lab: [place] [facility] [address] [place] [address] Performin g Lab: [place] [facility] [address] [place] [address] [facility] DRUG SCREEN URINE-inho use (PB) OXYCODONE CUTOFF [MASS/VOLUM E] IN URINE FOR SCREEN METHOD Negative 09/19 Specimen Type: URINE No comment entered. Ordering Provider: VIVIAN BENJAMIN Report Released Date/Time : Sep 15, 2024 03:14 PM Reporting Lab: [place] [facility] [address] [place] [address] Performin g Lab: [place] [facility] [address] [place] [address] [facility] DRUG SCREEN URINE-inho use (PB) ETHANOL [MASS/VOLUM E] IN URINE <10.0mg/d L 0 - 20 09/19 L Specimen Type: URINE No comment entered. Ordering Provider: VIVIAN BENJAMIN Report Released Date/Time : Sep 15, 2024 03:14 PM Reporting Lab: [place] [facility] [address] [place] [address] Performin g Lab: [place] [facility] [address] [place] [address] [facility] IRON/TIBC PROFILE IRON BINDING CAPACITY [MASS/VOLUM E] IN SERUM OR PLASMA 291 mg/dL 10/05 Specimen Type: SERUM No comment entered. Ordering Provider: VIVIAN BENJAMIN Report Released Date/Time : Oct 05, 2023 08:11 AM Reporting Lab: [place] [facility] [address] [place] [address] Performin g Lab: [place] [facility] [address] [place] [address] [facility] IRON/TIBC PROFILE TRANSFERRIN [MASS/VOLUM E] IN SERUM OR PLASMA 233 mg/dL 163 - 344 10/05 Specimen Type: SERUM No comment entered. Ordering Provider: VIVIAN BENJAMIN Report Released Date/Time : Oct 05, 2023 08:11 AM Reporting Lab: [place] [facility] [address] [place] [address] Performin g Lab: [place] [facility] [address] [place] [address] [facility] IRON/TIBC PROFILE IRON SATURATION [MASS FRACTION] IN SERUM OR PLASMA 49 20 - 50 10/05 Specimen Type: SERUM No comment entered. Ordering Provider: VIVIAN BENJAMIN Report Released Date/Time : Oct 05, 2023 08:11 AM Reporting Lab: [place] [facility] [address] [place] [address] Performin g Lab: [place] [facility] [address] [place] [address] [facility] IRON/TIBC PROFILE IRON [MASS/VOLUM E] IN SERUM OR PLASMA 144 ug/dL 65 - 175 10/05 Specimen Type: SERUM No comment entered. Ordering Provider: VIVIAN BENJAMIN Report Released Date/Time : Oct 05, 2023 08:11 AM Reporting Lab: [place] [facility] [address] [place] [address] Performin g Lab: [place] [facility] [address] [place] [address] [facility] Vital Signs Combined list of inpatient and outpatient Vital Signs from Department of Defense and Veterans Affairs, ranging from 12 months to all on record, depending upon the facility. Vital Sign Value Date Comments Source SYSTOLIC BLOOD PRESSURE 148 04/18/2025 13:18:00 [facility] DIASTOLIC BLOOD PRESSURE 78 04/18/2025 13:18:00 [facility] TEMPERATURE 98.1 04/18/2025 13:18:00 [facility] PULSE 64 04/18/2025 13:18:00 [facility] SYSTOLIC BLOOD PRESSURE 138 10/27/2024 13:58:00 [facility] DIASTOLIC BLOOD PRESSURE 80 10/27/2024 13:58:00 [facility] PULSE OXIMETRY 95 10/27/2024 13:58:00 [facility] [place] [facility] WEIGHT 162.2 10/27/2024 13:58:00 [facility] [place] [facility] BMI 22 kg/m2 10/27/2024 13:58:00 [place] [place] [facility] TEMPERATURE 98.2 10/27/2024 13:58:00 [place] [place] [facility] PULSE 54 10/27/2024 13:58:00 [facility] [place] [facility] RESPIRATION 17 10/27/2024 13:58:00 [place] [place] [facility] SYSTOLIC BLOOD PRESSURE 124 09/27/2024 13:25:00 [place] [place] [facility] DIASTOLIC BLOOD PRESSURE 84 09/27/2024 13:25:00 [place] [place] [facility] PULSE OXIMETRY 96 09/27/2024 13:25:00 [facility] [place] [facility] WEIGHT 168.0 09/27/2024 13:25:00 [place] [place] [facility] BMI 23 kg/m2 09/27/2024 13:25:00 [place] [place] [facility] PAIN 10 09/27/2024 13:25:00 [place] [facility] HEIGHT 72.0 09/27/2024 13:25:00 [place] [place] [facility] TEMPERATURE 98.0 09/27/2024 13:25:00 [facility] [place] [facility] PULSE 113 09/27/2024 13:25:00 [place] [place] [facility] RESPIRATION 19 09/27/2024 13:25:00 [place] [place] [facility] Encounters Combined list of: 1) Encounters from Department of [facility] Affairs facilities going backup to the last 18 months, not all VA inpatient encounters are included; 2) Encounters from the Department of [facility] facilities going backup to 280 months. 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 Outpatient Encounter [id number] 12/21 [facility] FAC[facility] FEE [id number] Diagnos is: ICD-10- CM Z46.1 Encount er for fitting and adjustm ent of hearing aid AYAAN JOHNSTON Vivian [facility] CONFORMITY EVALUATION [id number] Diagnos is: ICD-10- CM Z46.1 Encount er for fitting and adjustm ent of hearing aid AYAAN JOHNSTON KOHI Vivian [facility] OFFICE O/P EST MOD 30 MIN [id number] Diagnos is: ICD-10- CM L21.9 Seborrh eic dermati tis, unspeci fied Sarai BENJAMIN 02/09 [facility] OFF/OP EST MARCH X REQ PHY/QHP [id number] Diagnos is: ICD-10- CM I10 Essenti al (primar y) hyperte ALICE Neal 02/16 [facility] TELEHEALTH FACILITY FEE [id number] Diagnos is: ICD-10- CM Z46.1 Encount er for fitting and adjustm ent of hearing aid NEDRA GARCIA RT P 03/24 [facility] FITTING/CH ECKING [id number] Diagnos is: ICD-10- CM Z46.1 Encount er for fitting and adjustm ent of hearing aid NEDRA GARCIA RT P 03/24 [facility] Outpatient Encounter [id number] 08/04 [facility] Outpatient Encounter [id number] 08/11 [facility] Outpatient Encounter [id number] 09/13 [facility] Outpatient Encounter [id number] 09/15 [facility] QNHP OL DIG ASSMT&MGMT 5-10 [id number] Diagnos is: ICD-10- CM L21.9 Seborrh eic dermati tis, unspeci fied BAILEYHIRA V 09/16 [facility] OFF/OP EST MARCH X REQ PHY/QHP [id number] Diagnos is: ICD-10- CM M54.50 Low back pain, unspeci fied ALICE ANDERSON R 09/19 [facility] Outpatient Encounter [id number] 09[facility] Outpatient Encounter [id number] 09/27 [facility] Outpatient Encounter [id number] 09/27 [facility] CB OFFICE O/P EST MOD 30 MIN [id number] Diagnos is: ICD-10- CM I48.20 Chronic atrial fibrill ation, unspeci fied Sarai BENJAMIN 09/27 [facility] Outpatient Encounter [id number] 09/27 [facility] Outpatient Encounter [id number] RUPAL FERNANDEZ 09/28 [facility] Outpatient Encounter [id number] 09/29 [facility] CB Outpatient Encounter [id number] 09/29 [facility] OFF/OP EST MAY X REQ PHY/QHP [id number] Diagnos is: ICD-10- CM Z01.30 Encount er for exam of blood pressur e w/o abnorma l finding s ALICE ANDERSON 10/27 [facility] Outpatient Encounter [id number] 10/31 [facility] Outpatient Encounter [id number] 10/31 [facility] HC PRO PHONE CALL 5-10 MIN [id number] Diagnos is: ICD-10- CM Z71.9 Rn Gastroenterology ing, unspeci fiALICE Mason 10/31 [facility] Outpatient Encounter [id number] 11/18 [facility] Outpatient Encounter [id number] RUPAL FERNANDEZ 11/21 [facility] Outpatient Encounter [id number] 12/06 [facility] Outpatient Encounter [id number] 12/26 [facility] Outpatient Encounter [id number] 01/30 [facility] OFF/OP EST MARCH X REQ PHY/QHP [id number] Diagnos is: ICD-10- CM R31.9 Hematur ia, unspeci fied CUSTRED,TO RRI J 04/18 [facility] Procedures Combined list of: 1) Procedures from Department of Veterans Affairs facilities going back up to thelast 18 months, not all VA non-surgical procedures are included; 2) All procedures from the Department of Defense facilities. Procedure Procedure Type Code Date Perfomer Comments Sourc e DESTRUCTION (EG, LASER SURGERY, ELECTROSURGERY, CRYOSURGERY, CHEMOSURGERY, SURGICAL CURETTEMENT), PREMALIGNANT LESIONS (EG, ACTINIC KERATOSES); FIRST LESION 01/11/2002 [facility]D ESOPHAGOGASTRODUODENOSCOPY, FLEXIBLE, TRANSORAL; WITH BIOPSY, SINGLE OR MULTIPLE 09/22/2001 [facility] BIOPSY OF SKIN, SUBCUTANEOUS TISSUE AND/OR MUCOUS MEMBRANE (INCLUDING SIMPLE CLOSURE),UNLESS OTHERWISE LISTED (SEPARATE PROCEDURE); EACH SEPARATE/ADD LESION (LIST SEP IN ADD TO CODE FOR PRIMARY PROC) 07/23/2001 Do[facility] Social History Combined list of available smoking, tobacco, and other social history from Department of Defense and Veterans Affairs facilities. Social History Type Response Date Comment Sourc e Tobacco smoking status NMIS VA-TOBACCO USE FORMER CIGARETTES 09/27/2024 [facility] History of tobacco use VA-TOBACCO NEVER USED OTHER TYPE 09/27/2024 [facility] History of tobacco use VA-TOBACCO FORMER USER 10/05/2023 [facility] [place] [facility] History of tobacco use VA-TOBACCO FORMER USER 11/22/2018 [facility] [place] [facility] History of tobacco use QUIT TOBACCO >7 YEARS AGO 12/14/2017 [facility] History of tobacco use QUIT TOBACCO >7 YEARS AGO 09/22/2008 [facility] History of tobacco use QUIT TOBACCO >7 YEARS AGO 03/21/2008 [facility] History of tobacco use QUIT TOBACCO >7 YEARS AGO 03/10/2008 [facility] History of tobacco use QUIT TOBACCO >7 YEARS AGO 01/20/2008 [facility] History of tobacco use PREVIOUS SMOKER 10/05/2003 [facility] History of tobacco use PREVIOUS SMOKER 04/29/2002 [facility] This section is an empty social history section. DoD Plan of Care List of future care activities from Department of Veterans Affairs facilities. Additional future care activities may be listed in the Assessment and Plan section. Date/Time Care Activity Care Activity Detail Facili ty 04/18/2025 Laboratory - Chemistry Order POC UA (STL-PB-MA) URINE SP [facility]
--- OUTSIDE RECORDS SUMMARY | 2025-05-10 14:58 | XMS_ITS | Patient Health Record ---
Author Organization [facility] [employer] Address [address] [place], [place] [address] Care Team Providers Care Coffee Roaster Name Role Phone Florentin Joseph MD Primary Care Provider Unavail able Juni SQUIRES, Carlos Unavailable [phone] Jose D Eduardo DO Unavailable Unavailable Reason For Referral No Information Medications Medication SIG (Take, Route, Fr equency, Duration) Notes Start Date End Date Status alfentanil 500mcg/ml 1-2 ml intravenous may repeat PRN for procedural anxiety/ pain Active lisinopril 10 mg 1/2 tab orally once a day for 30 day(s) Active fentanyl 50mcg/ml 1-2 ml intravenous m ay repeat PRN for procedural anxiety/ pain Active midazolam 1 mg/ml 1-2 mg intravenous m ay repeat PRN for procedural anxiety Activ e Lidoderm 5% 1 PATCH applied topi rio once a day 03/19/2010 Active nortriptyline 10 mg 3 cap(s) orally @ hs for 30 day(s) Active Uroxatral 10 mg 1 tab orally once a day for 30 day(s) Active simvastatin 40 mg 1 tab orally once a day (at bedtime) for 30 day(s) Active Plan Of Treatment No Information Insurance Providers Payer Name Payer Address Payer Phone Subscriber Number Group Number Insured Name Patient Relationship to Insured Coverage Start Date Coverage End Date S Medicare Part B Claims Department [address] [address] [place] [address] [id number] Dann Peng Self - patient is the insured [facility] [address] [place] [address] [phone] [id number] Dann Peng Self - patient is the insured Medical (General) History Medical History History ICD Code Chronic pain syndrome Hypertension Hypercholesterolemia Benign prostatic hypertrophy Renal stones Surgical History Surgery Date(Month/Year) Cataract extractions 02/27/10, 03/13/10 Appendectomy 1960 Hernia repair 1960 Vascular vein stripping-both legs 1961, 1967 Rectum Arthroscopy-left knee 1985, 1987 Arthroscopy-right knee 1986 Ulnar nerve release-bilateral 1988 Right hand nerve release 1989 Ulnar nerve release/re-located nerve-bot h elbows 1991 Cholecystectomy 1997 Rotator cuff repair-left 1999 Arthroscopy-left shoulder 1998 Ultrasound/Lithotripsy-renal stones 1988 , 1999 & 2006 Hospitalization History Reason Date(Month/Year)
--- OUTSIDE RECORDS SUMMARY | 2025-05-10 14:59 | XMS_ITS | Patient Health Record ---
Author Organization [facility] Address [address] [place] [address] Care Team Providers Care Grand Scribe Name Role Phone Kendal Tejeda APRN Primary Care Provider Magalya Dc Felder Unavailable [phone] Riya Perez MD Unavailable Unavailable Allergies No Known Allergies Reason For Referral No Information Medications Medication SIG (Take, Route, Frequency, Duration) Notes Start Date End Date Status traMADol HCl 50 MG 1 tablet as needed Orally Once a day Active Tamsulosin HCl 0.4 MG 1 capsule Orally [...] mouth daily #30 (Thirty) tablet(s) 09/25/2010 Not-Taking Metoprolol Tartrate 50 MG 1 tablet with food Orally Twice a day Active hydrOXYzine HCl 10 MG 1 tablet as needed Orally Once a day Active hydroCHLOROthiazide 25 MG 1 tablet in the morning Orally Once a day Active Gabapentin 100 MG 1 capsule Orally Once a day Active Problems Problem Type SNOMED Code ICD Code Onset Dates Problem Status W/U Status Risk Notes Problem 12017489 Other chronic pain (G89.29) Active confirmed Problem 433424806815510 Secondary osteoarthritis, 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) Active confirmed Problem 5620437148157356 Nontraumatic complete tear of right rotator cuff (M75.121) Active confirmed Problem Posttraumatic stress disorder (17648554) Posttraumatic stress disorder (309.81) Active confirmed [id number]-985 911- Problem Benign prostatic hypertrophy (788123781) BPH (600.00) 009 Active confirmed [id number]-985 911- Problem Constipation (06249319) Constipation (564.01) Active confirmed [id number]-985 911- Problem Essential hypertension (35488074) Essential hypertension (401.1) Active confirmed [id number]-985 911- Problem Tarry stools (7227663) Tarry stools (578.1) 009 Problem resolved confirmed [id number]-985 911- Problem 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) Other abnormal laboratory result on blood (790.99) 009 Problem resolved confirmed [id number]-985 911- Problem General examination of patient (699660086) Annual exam (V70.0) 009 Problem resolved confirmed Donte-985 911- Encounters Encounter Location Date Provider Diagnosis [facility] [address] [facility] [place] [address] 10/28/2024 Dc Sawant [facility] [address] [facility] [place] [address] 11/14/2024 Dc Sawant Plan Of Treatment No Information Insurance Providers Payer Name Payer Address Payer Phone Subscriber Number Group Number Insured Name Patient Relationship to Insured Coverage Start Date Coverage End Date for Life Secondary to Medicare [address] [place] [address] [id number] BLANK Ginette Dann Self - patient is the insured [employer] [address] [place] [address] [phone] [id number] Dann Peng Self - patient is the insured Medical (General) History Medical History History ICD Code Positive forHypertension: dx 'd in 2003; dx'd at age 64; controlled; ; Positive forkidney stones 2007; Positive forOsteoarthritis: since 1970; since age OR since what age?; primarily affecting the shoulders, fingers, and c5-6-7 L1-2-3-4-5; ; measles mumps Chicken Pox whooping cough (pertussis) Small Pox Arthritis hernia Back Trouble Surgical History Surgery Date(Month/Year) Positive forAppendectomy: ; andglabladder 1998;; Positive forHernia Repair: 1962, 1997; right inguinal;,right hand 1995;,elbow right left ;,right knee 1985 1990 1997; andleft knee 1986, 1992;; Positive forColonoscopy ( 2000 normal ); 1963 hernia repair 1963 gall bladder removal 1989 vascular vein removal 1964 craniotomy 2015 Shoulder 2016 Hospitalization History Reason Date(Month/Year) See Surgery
--- NOTE | 2025-05-10 15:00 | W.ED.ABDPA2 ---
HPI - Abdominal Pain General: Chief Complaint: Abdominal Pain Stated Complaint: Afib RVR Time Seen by Provider: 05/10/25 14:45 History of Present Illness: 85-year-old man with a history of hypertension and atrial fibrillation who presents to the emergency room by ambulance with left lower abdominal and flank pain. This started about 3 days ago. Has been fairly severe. He is had some nausea. He also developed some chest pain today and when ambulance arrived at his home he was tachycardic in the 160s. He responded to fluids and is down to 140 and atrial fibrillation with rapid ventricular response. He says he has a history of A-fib but is not on any blood thinners. He says he was seen in clinic a couple of weeks ago for blood in his urine said he received some medicine and it got better. He says he does not have any hematuria or dysuria at this time. No altered mental status. No focal motor deficits. Related Data Home Medications ?Medication ?Instructions ?Recorded ?Confirmed citalopram 20 mg tablet 10 mg PO QAM 12/06/19 05/10/25 hydrochlorothiazide 25 mg tablet 25 mg PO DAILY 12/06/19 05/10/25 tamsulosin 0.4 mg capsule (Flomax) 0.8 mg PO QPM 07/17/20 05/10/25 ezetimibe 10 mg tablet 10 mg PO DAILY 06/29/24 05/10/25 ciclopirox 1 % shampoo See Rx Instructions .Route .COMPLEX 05/10/25 05/10/25 clobetasol 0.05 % scalp solution See Rx Instructions .Route .COMPLEX 05/10/25 05/10/25 ferrous gluconate 324 mg (38 mg 324 mg PO DAILY 05/10/25 05/10/25 iron) tablet ketoconazole 2 % topical cream See Rx Instructions .Route .COMPLEX 05/10/25 05/10/25 metoprolol tartrate 100 mg tablet 50 mg PO BID 05/10/25 05/10/25 pantoprazole 40 mg tablet,delayed 40 mg PO QAM 05/10/25 05/10/25 release (Protonix) tramadol 50 mg tablet 100 mg PO BID pain 05/10/25 05/10/25 Previous Rx's ?Medication ?Instructions ?Recorded custom thermoplastic night splint #1 ea 05/21/23 NIGHT SPLINT LEFT #1 ea 08/28/23 Allergies Allergy/AdvReac Type Severity Reaction Status Date / Time gabapentin Allergy Intermediate ADR-Confusi Verified 11/19/24 20:12 on amlodipine Allergy ADV-Weaknes Verified 11/19/24 20:12 s Review of Systems Narrative: Constitutional symptoms: Negative except as documented in HPI. Skin symptoms: Negative except as documented in HPI. Eye symptoms: Negative except as documented in HPI. ENMT symptoms: Negative except as documented in HPI. Respiratory symptoms: Negative except as documented in HPI. Cardiovascular symptoms: Negative except as documented in HPI. Gastrointestinal symptoms: Negative except as documented in HPI. Genitourinary symptoms: Negative except as documented in HPI. Musculoskeletal symptoms: Negative except as documented in HPI. Neurologic symptoms: Negative except as documented in HPI. Psychiatric symptoms: Negative except as documented in HPI. Endocrine symptoms: Negative except as documented in HPI. PFSH ED PFSH: Medical History Hyperlipidemia Benign hypertension Pigmented skin lesion of uncertain behavior of torso Dupuytren's contracture of both hands Osteoarthritis of hands, bilateral Hypertension Gastritis High cholesterol Calculus of kidney Gastric erosions Surgical History Hx of appendectomy Hx of cholecystectomy Hx of craniotomy History of bilateral knee replacement History of total left knee replacement Status post left knee replacement Family History Mother Diabetes Father Stroke Cancer Hypertension Social History Smoking and tobacco/nicotine status: never used tobacco/nicotine Alcohol intake: never Substance/Drug Use: never Physical Exam Narrative: EXAM NARRATIVE: General: Alert, no acute distress. Skin: Warm, dry. Head: Normocephalic, atraumatic. Neck: Supple, trachea midline. Eye: Extraocular movements are intact. Ears, nose, mouth and throat: mucosa moist. Cardiovascular: Irregular, tachycardic, Normal peripheral perfusion. Respiratory: Lungs are clear to auscultation, respirations are non-labored, breath sounds are equal, Symmetrical chest wall expansion. Gastrointestinal: Soft, Nontender, Non distended Musculoskeletal: Normal ROM, no deformity. Neurological: Alert and oriented, No focal neurological deficit observed. Psychiatric: Cooperative, appropriate mood & affect. Course Vital Signs: Vital signs: Vital Signs Temperature 97.4 F L 05/10/25 14:43 Pulse Rate 102 H 05/10/25 16:27 Respiratory Rate 18 05/10/25 16:27 Blood Pressure 124/91 05/10/25 16:27 Pulse Oximetry 92 05/10/25 16:27 Oxygen Delivery Me thod Room Air 05/10/25 16:27 MDM - Abdominal Pain Medical Decision Making Medical decision making: Differential diagnosis for a patient who presents with left lower quadrant abdominal pain including but not limited to and based on the above HPI, review of systems and physical exam: Diverticulitis. Constipation Ureterolithiasis. Urinary tract infection. colitis. small bowel obstruction. Crohn's flare. Orders placed to evaluate differential diagnosis based on the above differential, HPI and physical exam. EKG: Time 1447. Rate 147. Atrial fibrillation with rapid ventricular response, No ST-T changes, no ectopy, This was reviewed and interpreted by myself the ER physician at 1450 Lab Review: Laboratory results were reviewed and interpreted by myself the emergency room physician. Significant leukocytosis with a white count of 14.5. No anemia. Slight worsening in renal function with a BUN/creatinine of 15 and 1.4. Potassium is mildly low at 3.2. Magnesium is significantly low at 1.2. CT of the chest abdomen pelvis: Done because patient is having left flank pain and chest pain. Possible sepsis. No acute findings in the chest. 4 mm right upper lobe nodule that is stable. 5 mm obstructive stone in the mid left ureter producing mild hydronephrosis. This was reviewed and interpreted by myself the emergency room physician. I also reviewed the radiology report. I reviewed the patient's medical record. Reexamination: Patient's heart rate has improved quite a bit and he has been staying around 100. However he bounced back up into the 170s after I talked to him about transfer. He then went back down to around 100. No increased work of breathing. No altered mental status. Consultation: I spoke with Dr. Lake, urologist at [facility]. He is not on-call today and cannot accept patients. However he does recommend given the leukocytosis, tachycardia and elevated lactate that the patient be transferred for urology evaluation for possible stent placement even though the urine appears somewhat clear of infection, oftentimes with an obstructive stone the infection can be behind the stone and not show up in the urine. Consultation: I spoke with EV[facility]ARDO for [facility]. She agrees to admission. Still awaiting urology consultation with [facility] to assure acceptance. Assessment and plan: Ureterolithiasis Possible sepsis A-fib with RVR Hypomagnesemia Renal insufficiency ?Sepsis: With a lactic acid of 3.3 and white count of 15,000 with uncontrolled A-fib with RVR 1 must treat this as if the patient is septic. His urine does not show infection but as I discussed above that may be obscured by the stone blocking out signs of infection. So I am treating him as septic. And he will need be transferred and evaluated by urology for possible ureteral stent -2.5 L normal saline bolus. Fluid volumes based on ideal body weight. -Broad-spectrum antibiotics were administered. Cefepime -Sepsis quality measures. -Lactic acid with a reflex was ordered. -Blood cultures were ordered. ?A-fib with RVR: Amiodarone bolus was given the slow down. Now maintaining on an amnio drip. - Hypomagnesemia: 2 g IV magnesium for low magnesium. -I discussed the patient with the accepting physician on-call. - Discussed findings and plan with patient. Answered any questions. - All laboratory values were reviewed and interpreted personally by myself, the ER physician - All imaging was reviewed and interpreted personally by myself, the ER physician. - Evaluation and treatment of this problem were appropriate in the emergency setting Critical care -I spent a total of >35 minutes of critical care time managing the patient, independent of any other practitioner. -The time involved in the performance of separately reportable procedures was not counted towards critical care time. Lab Data 05/10/25 15:21 05/10/25 15:21 Labs/Radiology: Radiology Impressions Chest/Abdomen/Pelvis CT 05/10/25 14:49 IMPRESSION: 1. No acute findings. 2. 4 mm right upper lobe pulmonary nodule. For patients at low risk (minimal or absent history of smoking and of other known risk factors), no routine follow-up is indicated. For patients at high risk (history of smoking or of other known risk factors), consider optional CT Chest at 12 IMPRESSION: 1. 5 mm obstructive stone in the mid left ureter producing mild hydronephrosis. 2. Bilateral nonobstructive nephrolithiasis. 3. Incidental findings above. Laboratory Results WBC 14.48 10^3/uL (3.29-11.43) H 05/10/25 15:21 RBC 4.47 10^6/uL (3.85-5.65) 05/10/25 15:21 Hgb 15.70 g/dL (11.27-16.99) 05/10/25 15:21 Hct 43.9 % (37-53) 05/10/25 15:21 MCV 98.2 fl (82-101) 05/10/25 15:21 MCH 35.1 pg (27-33) H 05/10/25 15:21 MCHC 35.8 g/dL (30-55) 05/10/25 15:21 RDW 11.5 % (12.1-15.1) L 05/10/25 15:21 Plt Count 189 10^3/cmm (157-399) 05/10/25 15: MPV 11.1 fL (7.4-10.4) H 05/10/25 15:21 Neut % (Auto) 87.1 % 05/10/25 15:21 Lymph % (Auto) 5.9 % 05/10/25 15:21 [place] % (Auto) 6.1 % 05/10/25 15:21 Eos % (Auto) 0.1 % 05/10/25 15:21 Baso % (Auto) 0.2 % 05/10/25:21 Neut # (Auto) 12.61 10^3/uL (1.8-7.7) H 05/10/25 15:21 Lymph # (Auto) 0.9 10^3/uL (0.8-4.8) 05/10/25 15:21 [place] # (Auto) 0.9 10^3/uL (0.2-0.9) 05/10/25 15:21 Eos # (Auto) 0.0 10^3/uL (0.0-0.8) 05/10/25 15:21 Baso # (Auto) 0.0 10^3/uL (0.0-0.1) 05/10/25 15:21 Nucleated RBC % (auto) 0 % 05/10/25 15: Nucleated RBCs # 0.0 /100WBC 05/10/25 15:21 Sodium 139 mmol/L (136-145) 05/10/25 15:21 Potassium 3.2 mmol/L (3.5-5.1) L 05/10/25 15:21 Chloride 99 mmol/L (98-107) 05/10/25 15:21 Carbon Dioxide 20 mmol/L (22-29) L 05/10/25 15:21 Anion Gap 23.2 (5-19) H 05/10/25 15:21 BUN 15 mg/dL (8-23) 05/10/25 15:21 Creatinine 1.4 mg/dL (0.7-1.2) H 05/10/25 15:21 GFR Calculation Not Reportable 05/10/25 15:21 Glucose 106 mg/dL (65-115) 05/10/25 15:21 Calculated Osmolality 289 mOsm/kg (285-295) 05/10/25 15:21 Lactic Acid 3.3 mmol/L (0.5-2.2) H 05/10/25 15:21 Calcium 9.2 mg/dL (8.5-10.5) 05/10/25 15:21 Magnesium 1.2 mg/dL (1.7-2.3) L 05/10/25 15:21 Total Bilirubin 1.9 mg/dL (0.15-1.2) H 05/10/25 15:21 AST 15 U/L (0-40) 05/10/25 15:21 ALT 10 U/L (0-41) 05/10/25 15:21 Alkaline Phosphatase 103 U/L (40-130) 05/10/25 15:21 Troponin T Baseline 23 ng/L (0-15) H 05/10/25 15:21 C-Reactive Protein 10.0 mg/L (0.0-4.9) H 05/10/25 15:21 NT-Pro-B Natriuret Pep 1545 pg/mL (0-450) H 05/10/25 15:21 Total Protein 6.1 g/dL (6.6-8.7) L 05/10/25 15:21 Albumin 3.8 g/dL (3.5-5.2) 05/10/25 15:21 Globulin 2.3 g/dL (1.3-4.6) 05/10/25 15:21 TSH 1.28 uIU/mL (0.27-4.20) 05/10/25 15:21 Urine Color Yellow (Yellow) 05/10/25 16:02 Urine Appearance Clear (CLEAR) 05/10/25 16:02 Urine pH 7.0 (5-7) 05/10/25 16:02 Ur Specific [place] 1.008 (1.005-1.030) 05/10/25 16:02 Urine Protein Negative (Negative) 05/10/25 16:02 Urine Glucose (UA) Negative (Normal) 05/10/25 16:02 Urine Ketones 1+ (Negative) H 05/10/25 16:02 Urine Blood 2+ (Negative) A 05/10/25 16:02 Urine Nitrate Negative (Negative) 05/10/25 16:02 Urine Bilirubin Negative (Negative) 05/10/25 16:02 Urine Urobilinogen 1.0 mg/dL (Negative) 05/10/25 16:02 Ur Leukocyte Esterase Negative (Negative) 05/10/25 16:02 Urine RBC 21-50 /hpf (0-2) H 05/10/25 16:02 Urine WBC 0-5 /hpf (0-5) 05/10/25 16:02 Ur Squamous Epith Cells 0-5 /hpf (0-5) 05/10/25 16:02 Amorphous Sediment Not Reportable 05/10/25 16:02 Urine Bacteria None seen /hpf (NONE) 05/10/25 16:02 Hyaline Casts 0.40 /lpf 05/10/25 16:02 All radiology interpretation(s) finalized by discharge Discharge Plan Discharge Patient Disposition: Admitted As Inpatient Clinical Impression: Atrial fibrillation with rapid ventricular response, Ureterolithiasis, Hypomagnesemia, Dehydration, Sepsis, Renal insufficiency Condition: Stable Coding Level of Care Code ED Manager Materials Management for Gladys Hernandez
--- NOTE | 2025-05-10 15:04 | PC.PHAR ---
Addendum entered by Deedee Leone 05/10/25 16:11: Pt states he was in too much pain to take his medications this morning. Original Note: Pt is Gordon for med list 05/10/25 3:04pm
[2025-05-10] MEDS: sodium chloride 0.9% 1,000 ML 999 ML IV (15:06)
[2025-05-10] MEDS: amiodarone 150 MG/100 ML PREMIX 400 MG IV (15:15)
[2025-05-10 15:37] LABS: Basophils % 0.2 %; Eosinophils % 0.1 %; Hematocrit 43.9 % (37-53); Lymphocytes # 0.9 10^3/uL (0.8-4.8); Lymphocytes % 5.9 %; Mean Corpuscular HGB Conc 35.8 g/dL (30-55); Mean Corpuscular Hemoglobin 35.1 pg (27-33); Mean Corpuscular Volume 98.2 fl (82-101); Mean Platelet Volume 11.1 fL (7.4-10.4); Monocytes # 0.9 10^3/uL (0.2-0.9); Monocytes % 6.1 %; Neutrophils # 12.61 10^3/uL (1.8-7.7); Neutrophils % 87.1 %; Nucleated Red Blood Cells % 0 %; Platelet Count 189 10^3/cmm (157-399); Red Blood Count 4.47 10^6/uL (3.85-5.65); Red Cell Distribution Width 11.5 % (12.1-15.1); White Blood Count 14.48 10^3/uL (3.29-11.43)
[2025-05-10 16:01] LABS: Lactic Sepsis W/Reflex 3.3 mmol/L (0.5-2.2); Troponin(5th) Baseline 23 ng/L (0-15)
[2025-05-10 16:07] LABS: Alanine Aminotransferase 10 U/L (0-41); Albumin Level 3.8 g/dL (3.5-5.2); Alkaline Phosphatase 103 U/L (40-130); Anion Gap 23.2 (5-19); Aspartate Amino Transferase 15 U/L (0-40); Blood Urea Nitrogen 15 mg/dL (8-23); Calcium 9.2 mg/dL (8.5-10.5); Carbon Dioxide 20 mmol/L (22-29); Chloride 99 mmol/L (98-107); Creatinine Clr Calc Pharmacy 39.9966; Globulin 2.3 g/dL (1.3-4.6); Glucose 106 mg/dL (65-115); Magnesium 1.2 mg/dL (1.7-2.3); NT Pro B Type Natriuretic Pept 1545 pg/mL (0-450); Osmolality Calculated 289 mOsm/kg (285-295); Potassium 3.2 mmol/L (3.5-5.1); Sodium 139 mmol/L (136-145); Thyroid Stimulating Hormone 1.28 uIU/mL (0.27-4.20); Total Bilirubin 1.9 mg/dL (0.15-1.2); Total Protein 6.1 g/dL (6.6-8.7)
[2025-05-10 16:18] LABS: Bilirubin Urine Negative (Negative); Blood Urine 2+ (Negative); Glucose Urine UA Negative (Normal); Ketones Urine 1+ (Negative); Leukocyte Esterase Urine Negative (Negative); Nitrate Urine Negative (Negative); Protein Urine Negative (Negative); Specific Gravity, Urine 1.008 (1.005-1.030); Urine Appearance Clear (CLEAR); Urine Color Yellow (Yellow)
[2025-05-10] MEDS: dilTIAZem 100 MG in sodium chloride 0.9% (add-van) 100 ML IV (16:22)
[2025-05-10 16:24] LABS: Bacteria Urine None Seen /hpf; RBC Urine 21-50 /hpf (0-2); Squamous Epithelial Cell Urine 0-5 /hpf (0-5); WBC Urine 0-5 /hpf (0-5)
[2025-05-10 16:42] LABS: Add Urine Culture? Yes
--- NOTE | 2025-05-10 16:50 | ECG_ITS ---
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
[2025-05-10] MEDS: magnesium sulfate premix 2 GM/50 ML PIGGYBACK IV (17:00)
[2025-05-10 17:20] LABS: Reflex Lactate Order REFLEX LACTIC ORDERD
[2025-05-10] MEDS: cefepime 2,000 mg SDV 2000 MG IVP (17:45)
[2025-05-10] MEDS: sodium chloride 0.9% 500 ML 999 ML IV (18:04)
[2025-05-10 18:57] LABS: Lactic Acid level (Lactate) 2.1 mmol/L (0.5-2.2)
--- NOTE | 2025-05-10 20:53 | ECG_ITS ---
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
[2025-05-10] MEDS: morphine 4 mg/mL SDV 1 mL IVP (20:56)
[2025-05-10 21:25] LABS: Troponin 5 6HR 21.81 ng/L (0-15)
[2025-05-10 21:29] LABS: Troponin 5 6HR Delta -1.19 ng/L (0-12)
[2025-05-11] VITALS (20 sets, daily range): BP systolic 100–180; BP diastolic 56–98; PULSE 50–83; RESP 12–18; O2SAT 92–100
[2025-05-11] MEDS: morphine 4 mg/mL SDV 1 mL IVP ×5 (00:37→13:45)
[2025-05-11] MEDS: cefepime 2,000 mg SDV 2000 MG IVP (08:45)
[2025-05-11] MEDS: sodium chloride 0.9% 1,000 ML 75 ML IV (08:47)
[2025-05-11] MEDS: HYDROmorphone 0.5 MG/0.5 ML INJ 1 MG IVP (10:00)
[2025-05-11 10:36] LABS: Basophils % 0.1 %; Lymphocytes # 1.4 10^3/uL (0.8-4.8); Lymphocytes % 9.6 %; Mean Corpuscular HGB Conc 35.1 g/dL (30-55); Mean Corpuscular Hemoglobin 35.2 pg (27-33); Mean Corpuscular Volume 100.2 fl (82-101); Mean Platelet Volume 10.9 fL (7.4-10.4); Monocytes # 1.2 10^3/uL (0.2-0.9); Monocytes % 7.8 %; Neutrophils # 12.28 10^3/uL (1.8-7.7); Neutrophils % 82.2 %; Nucleated Red Blood Cells % 0 %; Platelet Count 167 10^3/cmm (157-399); Red Blood Count 4.09 10^6/uL (3.85-5.65); Red Cell Distribution Width 11.6 % (12.1-15.1); White Blood Count 14.95 10^3/uL (3.29-11.43)
[2025-05-11 10:50] LABS: Alanine Aminotransferase 12 U/L (0-41); Albumin Level 3.7 g/dL (3.5-5.2); Alkaline Phosphatase 99 U/L (40-130); Anion Gap 19.2 (5-19); Aspartate Amino Transferase 18 U/L (0-40); Blood Urea Nitrogen 17 mg/dL (8-23); Calcium 9.5 mg/dL (8.5-10.5); Carbon Dioxide 25 mmol/L (22-29); Chloride 95 mmol/L (98-107); Creatinine Clr Calc Pharmacy 31.1084; Globulin 2.9 g/dL (1.3-4.6); Glucose 127 mg/dL (65-115); Osmolality Calculated 283 mOsm/kg (285-295); Potassium 4.2 mmol/L (3.5-5.1); Sodium 135 mmol/L (136-145); Total Bilirubin 0.9 mg/dL (0.15-1.2); Total Protein 6.6 g/dL (6.6-8.7)
[2025-05-11 10:52] LABS: Lactic Sepsis W/Reflex 3.3 mmol/L (0.5-2.2)
[2025-05-11 12:16] LABS: Reflex Lactate Order REFLEX LACTIC ORDERD
--- NOTE | 2025-05-11 13:40 | PC.NURSE ---
PER DR. VASQUEZ VERBAL ORDER ADMIN MORPHINE 4 MG IVP
--- NOTE | 2025-05-11 13:54 | PC.NURSE ---
2ND ATTEMPT TO GIVE REPORT TO [facility] AND WAS TOLD THEY WILL NOT TAKE REPORT UNTIL THE ROOM IS CLEAN.
[2025-05-11 13:56] LABS: Lactic Acid level (Lactate) 1.7 mmol/L (0.5-2.2)
--- NOTE | 2025-05-11 14:02 | PC.NURSE ---
TRANSF[facility] GAVE VERBAL TO [facility] TO SEND PATIENT VIA AIR WITHOUT REPORT TO NURSE DUE TO NURSE REFUSAL OF REPORT SINCE ROOM IS NOT CLEAN. VERBALIZED TO [facility] ADMIN RENNY HEARN AND GAVE OKAY TO TRANSFER.
--- NOTE | 2025-05-11 14:04 | W.ED.ABDPA2 ---
HPI - Abdominal Pain General: Chief Complaint: Abdominal Pain Stated Complaint: Afib RVR Time Seen by Provider: 05/10/25 14:45 History of Present Illness: Patient has been on a hold to go to [facility] with ureterolithiasis and possible sepsis. Today he has been having considerably more pain in his left flank. He is required large amounts of morphine today. I went and evaluated him this after lab work was done currently his pain is a little better controlled. No altered mental status. No fevers. Related Data Home Medications ?Medication ?Instructions ?Recorded ?Confirmed citalopram 20 mg tablet 10 mg PO QAM 12/06/19 05/10/25 hydrochlorothiazide 25 mg tablet 25 mg PO DAILY 12/06/19 05/10/25 tamsulosin 0.4 mg capsule (Flomax) 0.8 mg PO QPM 07/17/20 05/10/25 ezetimibe 10 mg tablet 10 mg PO DAILY 06/29/24 05/10/25 ciclopirox 1 % shampoo See Rx Instructions .Route .COMPLEX 05/10/25 05/10/25 clobetasol 0.05 % scalp solution See Rx Instructions .Route .COMPLEX 05/10/25 05/10/25 ferrous gluconate 324 mg (38 mg 324 mg PO DAILY 05/10/25 05/10/25 iron) tablet ketoconazole 2 % topical cream See Rx Instructions .Route .COMPLEX 05/10/25 05/10/25 metoprolol tartrate 100 mg tablet 50 mg PO BID 05/10/25 05/10/25 pantoprazole 40 mg tablet,delayed 40 mg PO QAM 05/10/25 05/10/25 release (Protonix) tramadol 50 mg tablet 100 mg PO BID pain 05/10/25 05/10/25 Previous Rx's ?Medication ?Instructions ?Recorded custom thermoplastic night splint #1 ea 05/21/23 NIGHT SPLINT LEFT #1 ea 08/28/23 Allergies Allergy/AdvReac Type Severity Reaction Status Date / Time gabapentin Allergy Intermediate ADR-Confusi Verified 11/19/24 20:12 on amlodipine Allergy ADV-Weaknes Verified 11/19/24 20:12 s Review of Systems Narrative: Constitutional symptoms: Negative except as documented in HPI. Skin symptoms: Negative except as documented in HPI. Eye symptoms: Negative except as documented in HPI. ENMT symptoms: Negative except as documented in HPI. Respiratory symptoms: Negative except as documented in HPI. Cardiovascular symptoms: Negative except as documented in HPI. Gastrointestinal symptoms: Negative except as documented in HPI. Genitourinary symptoms: Negative except as documented in HPI. Musculoskeletal symptoms: Negative except as documented in HPI. Neurologic symptoms: Negative except as documented in HPI. Psychiatric symptoms: Negative except as documented in HPI. Endocrine symptoms: Negative except as documented in HPI. PFSH ED PFSH: Medical History Hyperlipidemia Benign hypertension Pigmented skin lesion of uncertain behavior of torso Dupuytren's contracture of both hands Osteoarthritis of hands, bilateral Hypertension Gastritis High cholesterol Calculus of kidney Gastric erosions Surgical History Hx of appendectomy Hx of cholecystectomy Hx of craniotomy History of bilateral knee replacement History of total left knee replacement Status post left knee replacement Family History Mother Diabetes Father Stroke Cancer Hypertension Social History Smoking and tobacco/nicotine status: never used tobacco/nicotine Alcohol intake: never Substance/Drug Use: never Physical Exam Narrative: EXAM NARRATIVE: General: Alert, no acute distress. Skin: Warm, dry. Head: Normocephalic, atraumatic. Neck: Supple, trachea midline. Eye: Extraocular movements are intact. Ears, nose, mouth and throat: mucosa moist. Cardiovascular: Regular, Normal peripheral perfusion. Respiratory: Lungs are clear to auscultation, respirations are non-labored, breath sounds are equal, Symmetrical chest wall expansion. Gastrointestinal: Soft, Nontender, Non distended Musculoskeletal: Normal ROM, no deformity. Neurological: Alert and oriented, No focal neurological deficit observed. Psychiatric: Cooperative, appropriate mood & affect. Course Vital Signs: Vital signs: Vital Signs Temperature 97.4 F L 05/10/25 14:43 Pulse Rate 83 05/11/25 13:28 Respiratory Rate 16 05/11/25 06:30 Blood Pressure 162/94 05/11/25 13:28 Pulse Oximetry 97 05/11/25 13:28 Oxygen Delivery Me thod Room Air 05/11/25 13:28 MDM - Abdominal Pain Medical Decision Making Lab Review: Laboratory results were reviewed and interpreted by myself the emergency room physician. Leukocytosis is stable at 15,000. Creatinine has gone from 1.4-1.8. Lactate had gone down initially but now is back up to 3.3. He is receiving IV fluids. He has been receiving scheduled cefepime. I called Adriana back and discussed that I feel his condition is worsening and he needs prompt evaluation by urology. Urology is actually planning to take him to the OR this evening. He has now been accepted. Given the decline in his lab work and his increased pain I am opting to fly him as he now has a bed in this hopefully will allow him to make it to the OR today. Assessment and plan: Ureterolithiasis Sepsis ?Continue cefepime and IV fluids at maintenance. - Discussed findings and plan with patient. Answered any questions. - All laboratory values were reviewed and interpreted personally by myself, the ER physician - All imaging was reviewed and interpreted personally by myself, the ER physician. - Evaluation and treatment of this problem were appropriate in the emergency setting Lab Data 05/11/25 10:26 05/11/25 10:26 Labs/Radiology: Radiology Impressions Chest/Abdomen/Pelvis CT 05/10/25 14:49 IMPRESSION: 1. No acute findings. 2. 4 mm right upper lobe pulmonary nodule. For patients at low risk (minimal or absent history of smoking and of other known risk factors), no routine follow-up is indicated. For patients at high risk (history of smoking or of other known risk factors), consider optional CT Chest at 12 IMPRESSION: 1. 5 mm obstructive stone in the mid left ureter producing mild hydronephrosis. 2. Bilateral nonobstructive nephrolithiasis. 3. Incidental findings above. Laboratory Results WBC 14.95 10^3/uL (3.29-11.43) H 05/11/25 10: RBC 4.09 10^6/uL (3.85-5.65) 05/11/25 10: Hgb 14.40 g/dL (11.27-16.99) 05/11/25 10: Hct 41.0 % (37-53) 05/11/25 10: MCV 100.2 fl (82-101) 05/11/25 10: MCH 35.2 pg (27-33) H 05/11/25 10: MCHC 35.1 g/dL (30-55) 05/11/25 10: RDW 11.6 % (12.1-15.1) L 05/11/25 10:26 Plt Count 167 10^3/cmm (157-399) 05/11/25 10:26 MPV 10.9 fL (7.4-10.4) H 05/11/25 10:26 Neut % (Auto) 82.2 % 05/11/25 10:26 Lymph % (Auto) 9.6 % 05/11/25 10:26 [place] % (Auto) 7.8 % 05/11/25 10:26 Eos % (Auto) 0.0 % 05/11/25 10:26 Baso % (Auto) 0.1 % 05/11/25 10: Neut # (Auto) 12.28 10^3/uL (1.8-7.7) H 05/11/25 10:26 Lymph # (Auto) 1.4 10^3/uL (0.8-4.8) 05/11/25 10:26 [place] # (Auto) 1.2 10^3/uL (0.2-0.9) H 05/11/25 10:26 Eos # (Auto) 0.0 10^3/uL (0.0-0.8) 05/11/25 10: Baso # (Auto) 0.0 10^3/uL (0.0-0.1) 05/11/25 10:26 Nucleated RBC % (auto) 0 % 05/11/25 10:26 Nucleated RBCs # 0.0 /100WBC 05/11/25 10:26 Sodium 135 mmol/L (136-145) L 05/11/25 10:26 Potassium 4.2 mmol/L (3.5-5.1) 05/11/25 10: Chloride 95 mmol/L (98-107) L 05/11/25 10:26 Carbon Dioxide 25 mmol/L (22-29) 05/11/25 10:26 Anion Gap 19.2 (5-19) H 05/11/25 10:26 BUN 17 mg/dL (8-23) 05/11/25 10:26 Creatinine 1.8 mg/dL (0.7-1.2) H 05/11/25 10:26 GFR Calculation Not Reportable 05/11/25 10:26 Glucose 127 mg/dL (65-115) H 05/11/25 10:26 Calculated Osmolality 283 mOsm/kg (285-295) L 05/11/25 10:26 Lactic Acid 3.3 mmol/L (0.5-2.2) H 05/11/25 10:26 Lactic Acid (Sepsis) 1.7 mmol/L (0.5-2.2) 05/11/25 13:34 Calcium 9.5 mg/dL (8.5-10.5) 05/11/25 10:26 Magnesium 1.2 mg/dL (1.7-2.3) L 05/10/25 15:21 Total Bilirubin 0.9 mg/dL (0.15-1.2) 05/11/25 10: AST 18 U/L (0-40) 05/11/25 10: ALT 12 U/L (0-41) 05/11/25 10:26 Alkaline Phosphatase 99 U/L (40-130) 05/11/25 10:26 Troponin T Baseline 23 ng/L (0-15) H 05/10/25 15:21 Troponin T 120 Minute 20.90 ng/L (0-15) H 05/10/25 17:22 Delta Troponin T -2.10 ABS# (0-10) L 05/10/25 17:22 Troponin T Hi Sens 6Hr 21.81 ng/L (0-15) H 05/10/25 21:00 Troponin T Hi Sens 6Hr Delta -1.19 ng/L (0-12) L 05/10/25 21:00 C-Reactive Protein 10.0 mg/L (0.0-4.9) H 05/10/25 15:21 NT-Pro-B Natriuret Pep 1545 pg/mL (0-450) H 05/10/25 15:21 Total Protein 6.6 g/dL (6.6-8.7) 05/11/25 10:26 Albumin 3.7 g/dL (3.5-5.2) 05/11/25 10: Globulin 2.9 g/dL (1.3-4.6) 05/11/25 10:26 TSH 1.28 uIU/mL (0.27-4.20) 05/10/25 15:21 Urine Color Yellow (Yellow) 05/10/25 16:02 Urine Appearance Clear (CLEAR) 05/10/25 16:02 Urine pH 7.0 (5-7) 05/10/25 16:02 Ur Specific [place] 1.008 (1.005-1.030) 05/10/25 16:02 Urine Protein Negative (Negative) 05/10/25 16:02 Urine Glucose (UA) Negative (Normal) 05/10/25 16:02 Urine Ketones 1+ (Negative) H 05/10/25 16:02 Urine Blood 2+ (Negative) A 05/10/25 16:02 Urine Nitrate Negative (Negative) 05/10/25 16:02 Urine Bilirubin Negative (Negative) 05/10/25 16:02 Urine Urobilinogen 1.0 mg/dL (Negative) 05/10/25 16:02 Ur Leukocyte Esterase Negative (Negative) 05/10/25 16:02 Urine RBC 21-50 /hpf (0-2) H 05/10/25 16:02 Urine WBC 0-5 /hpf (0-5) 05/10/25 16:02 Ur Squamous Epith Cells 0-5 /hpf (0-5) 05/10/25 16:02 Amorphous Sediment Not Reportable 05/10/25 16:02 Urine Bacteria None seen /hpf (NONE) 05/10/25 16:02 Hyaline Casts 0.40 /lpf 05/10/25 16:02 No radiology studies performed this visit Discharge Plan Discharge Patient Disposition: Admitted As Inpatient Clinical Impression: Atrial fibrillation with rapid ventricular response, Ureterolithiasis, Hypomagnesemia, Dehydration, Sepsis, Renal insufficiency Condition: Stable Coding Level of Care Code ED Machine Biller for Gladys Hernandez
--- NOTE | 2025-05-11 14:53 | PC.NURSE ---
SIDRA RN CALLED TO GET REPORT FOR PATIENT AT 1450. GAVE REPORT ON PATIENT VIA PHONE CALL POST PATIENT LEAVING BY AIR [facility].
== END 2025-05-11 14:28 | disposition short-term general hospital, planned readmission (82) ==
PROVIDERS: Emergency Provider Emergency Medicine; PCP Family Medicine
DX: I48.20 Chronic atrial fibrillation, unspecified (principal); N20.1 Calculus of ureter; E83.42 Hypomagnesemia; E86.0 Dehydration; A41.9 Sepsis, unspecified organism; N28.9 Disorder of kidney and ureter, unspecified; I10 Essential (primary) hypertension; E78.5 Hyperlipidemia, unspecified
CPT/HCPCS: 36415; 71250; 74176; 80053; 81001; 83605; 83735; 83880; 84443; 84484; 85025; 86140; 87040; 87086; 93005; 96365; 96366; 96367; 96375; 96376; 99291; A4222; J0283; J0692; J1171; J2270; J3475; J3490; J7030; J7040; J9999

== ENCOUNTER 2025-06-02 11:25 | Outpatient (CLI) | payer OTHER, SELFPAY ==
--- NOTE | 2025-06-02 11:33 | MR_ITS ---
WS: [id number] MRI LUMBAR SPINE NONCONTRAST HISTORY: LUMBAR RADICULOPATHY COMPARISON: 11/07/2013 TECHNIQUE: Sagittal and axial multisequence imaging is submitted. Localizer image of the spine demonstrates severe multilevel areas of complete disc space desiccation at several thoracic and cervical spine levels. Reversal of the normal cervical lordosis. Cervical stenosis at C3-4. Disc protrusions at multiple levels in the thoracic spine but no cord compression. L3 anterolisthesis by 4 mm. There is complete loss of disc space at L2-3 and L4- 5 and L5-S1. Small amount of reactive marrow edema along the adjacent endplates of T12 and L1. No fractures. Conus terminates normally at L1-2 disc level. L1-L2: Diffuse annular disc bulging. Mild facet and ligamentum flavum hypertrophy. Mild subarticular recess and moderate bilateral foraminal stenosis. L2-L3: Diffuse osteophytic ridging. Osteophytes encroaching upon the ventral thecal sac. Ligamentum flavum and facet arthritis. Mild to moderate central, bilateral subarticular recess and foraminal stenosis. L3-L4: Diffuse annular disc bulging with severe ligamentum flavum and facet arthritis. Hypertrophic osteophytes and disc disease. Severe central, bilateral subarticular recess and moderate foraminal stenosis. There is significant encroachment upon the traversing L4 nerve roots. L4-L5: Osteophytic ridging. Moderate facet and ligamentum flavum hypertrophy. Mild subarticular recess encroachment. Mild central and bilateral foraminal stenosis. L5-S1: Mild osteophytic ridging and facet arthritis. Mild foraminal stenosis. Paravertebral soft tissues are normal. MR/MR lumbar spine wo con* [id number] IMPRESSION: 1. Severe multilevel disc space narrowing and desiccation throughout the cervi vasu, thoracic and lumbar spines. 2. L3-4: Severe central, bilateral subarticular recess and moderate foraminal stenosis. 3. L2-3: Mild to moderate central, bilateral subarticular recess and foraminal stenosis. 4. L1-2: Mild subarticular recess and moderate bilateral foraminal stenosis. 5. No acute fractures.
== END 2025-06-02 11:26 | disposition home or self-care (01) ==
LOC: RAD 11:27
PROVIDERS: PCP Family Medicine; Visit Provider Family Medicine
DX: M54.16 Radiculopathy, lumbar region (principal); M48.061 Spinal stenosis, lumbar region without neurogenic claudication
CPT/HCPCS: 72148

== ENCOUNTER → 2025-08-14 13:40 | Outpatient (BNVA) | payer OTHER, SELFPAY | PROVIDERS: PCP Family Medicine; Visit Provider Internal Medicine Cardiovascular Disease | DX: I48.20 Chronic atrial fibrillation, unspecified (principal); I10 Essential (primary) hypertension; E78.5 Hyperlipidemia, unspecified; I08.1 Rheumatic disorders of both mitral and tricuspid valves; I95.1 Orthostatic hypotension; Z87.891 Personal history of nicotine dependence | CPT/HCPCS: 93005; 99204 ==

== ENCOUNTER → 2025-08-15 07:48 | Outpatient (BNVA) | payer OTHER, SELFPAY | PROVIDERS: PCP Family Medicine; Visit Provider Nurse Practitioner Family | DX: S00.30XA Unspecified superficial injury of nose, initial encounter (principal); X58.XXXA Exposure to other specified factors, initial encounter; L82.1 Other seborrheic keratosis; D22.5 Melanocytic nevi of trunk; L57.8 Other skin changes due to chronic exposure to nonionizing radiation; L81.4 Other melanin hyperpigmentation; L40.8 Other psoriasis; L82.0 Inflamed seborrheic keratosis; L53.8 Other specified erythematous conditions; R20.8 Other disturbances of skin sensation; Z78.9 Other specified health status; L29.89 Other pruritus; R58 Hemorrhage, not elsewhere classified | CPT/HCPCS: 17110; 99214 ==

== ENCOUNTER 2025-08-18 07:17 | Outpatient (CLI) | payer OTHER, SELFPAY ==
--- NOTE | 2025-08-18 | ECG_ITS ---
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 Interpretive Statements Lung unchanged pre/post procedure; Intraprocedure shortess of breath; Symptoms resoled by discharge PROCEDURE: At the baseline, the EKG revealed normal sinus rhythm with nonspecific IVCD. The baseline heart was 70 bpm with a blood pressue of 144/85 mm of Hg Lexiscan was infused over a period of 20 seconds. A total of 0.4 milligrams of Lexiscan was infused. The stress phase was continued for a total of 5 minutes. Heart rate at the end of the stress phase was 77 bpm with a blood pressure 117/64 mm of Hg. The EKG at the peak infusion revealed no significant changes. Sestamibi was injected 20 seconds after the Lexiscan infusion. Heart rate at the end of the recovery phase was 74 bpm with a blood pressure of 125/75 mm of Hg. CONCLUSION: 1. No significant EKG changes with the LexiScan infusion 2. No LexiScan induced chest pain or cardiac arrhythmia 3. Normal blood pressure and heart rate response 4. Sestamibi/sestamibi perfusion scan pending; see separate report. Electronically Signed On 08-20-2025 20:31:25 CDT by Ana Agarwal M.D. [email or web address]
[2025-08-18 07:44] VITALS: BMI 19.6
--- NOTE | 2025-08-18 07:48 | NMCV_ITS ---
NM josé antonio perf SPECT r/s* [id number] Dann Peng Age: 85 Gender: M : 1940 Exam Date: 08/18/2025 08:46 Ordering Phys: Yon Orozco MD ([email or web address]) Technologist: LIZA Donohue Exam Location: [facility] Indications: cp STRESS TEST Please see separate stress test report in [facility] for full findings IMAGE PROTOCOL Rest/Stress 1 Lexiscan Day Radiopharmaceutical Dose (mCi) Administration Site Administered by Rest: Tc-99m 10.9 IV LIZA Donohue Sestamibi Stress:Tc-99m 32.7 IV Jmeima Batres, FIELD SERVICE ANALYST Sestamibi Rest: 18-Aug-2025 60 Discovery 630 Stress: 18-Aug-2025 30 Discovery 630 0.4mg Lexiscan. Supine position only as patient was unable to lay prone. SPECT RESULTS Technical Quality: Good Raw Data Analysis: Normal Image Corrections: No attenuation or motion correction applied Summed Stress Score: 0 Summed Rest Score: 0 Summed Difference Score: 0 PERFUSION FINDINGS Uniform myocardial tracer uptake with no significant perfusion normalities FUNCTIONAL RESULTS (calculated via Gated SPECT) Stress Image LV EF (%): 92 Stress EDV (mL):53 TID: 0.83 Stress ESV (mL):4 FUNCTIONAL FINDINGS: Segmental wall motion analysis revealing no gross wall motion abnormalities IMPRESSIONS 1. Myocardial perfusion imaging revealing uniform tracer uptake with no significant perfusion abnormalities. 2. Normal LV ejection fraction of 92%. 3. LV wall motion analysis revealing no gross wall motion abnormalities. 4. Normal LV volume. Low probability for coronary ischemia, based on the above findings Dr Ana Agarwal MD FACC (Electronically Signed) Final Date: 18 August 2025 17:45 S
[2025-08-18 09:46] VITALS: BP 125/75; PULSE 74
== END 2025-08-18 07:18 | disposition home or self-care (01) ==
LOC: CDL 07:20
PROVIDERS: PCP Family Medicine; Visit Provider Internal Medicine Cardiovascular Disease
DX: R07.9 Chest pain, unspecified (principal); I49.8 Other specified cardiac arrhythmias; I45.4 Nonspecific intraventricular block
CPT/HCPCS: 36415; 78452; 93017; 96374; A9500; J2785

== ENCOUNTER → 2025-10-16 13:20 | Outpatient (BNVA) | payer OTHER, SELFPAY | PROVIDERS: PCP Family Medicine; Visit Provider Internal Medicine Cardiovascular Disease | DX: E78.5 Hyperlipidemia, unspecified (principal); I10 Essential (primary) hypertension; I95.1 Orthostatic hypotension; I08.1 Rheumatic disorders of both mitral and tricuspid valves; I45.10 Unspecified right bundle-branch block; Z01.810 Encounter for preprocedural cardiovascular examination; I87.2 Venous insufficiency (chronic) (peripheral); I48.20 Chronic atrial fibrillation, unspecified; Z79.01 Long term (current) use of anticoagulants; Z87.891 Personal history of nicotine dependence | CPT/HCPCS: 99214 ==